=== PATIENT | male | born 1945 ===

== ENCOUNTER 2018-01-24 08:31 | Inpatient (IN) | payer MEDICARE ==
[2018-01-24 09:41] LABS: ALT (SGPT) 14 U/L (8-55); AST (SGOT) 43 U/L (5-34); Albumin 2.7 g/dL (3.4-4.8); Alkaline Phosphatase 79 U/L (40-150); Anion Gap 11 mmol/L (10-20); BUN (Urea Nitrogen) 27 mg/dL (8.4-25.7); Bilirubin, Total 2.2 mg/dL (0.2-1.2); Calc. Creatinine Clearance 0 mL/min (70-130); Calcium 8.8 mg/dL (7.8-10.44); Carbon Dioxide 23 mmol/L (23-31); Chloride 110 mmol/L (98-107); Estimated GFR-MDRD 36; Globulin 4.6 g/dL (2.4-3.5); Glucose 146 mg/dL (80-115); Lipase 26 U/L (8-78); Potassium 4.5 mmol/L (3.5-5.1); Protein, Total 7.3 g/dL (5.8-8.1); Sodium 139 mmol/L (136-145)
[2018-01-24 09:52] LABS: Troponin I 0.022 ng/mL (< 0.028)
[2018-01-24 10:21] LABS: #Eosinphils 0.1 thou/uL (0.0-0.7); #Lymphocytes 1.2 thou/uL (1.20-3.40); #Monocytes 0.4 thou/uL (0.11-0.59); #Neutrophils 9.6 thou/uL (1.40-6.50); %Basophils 0.3 % (0.0-1.0); %Eosinophils 0.5 % (0.0-10.0); %Lymphocytes 10.5 % (21.0-51.0); %Monocytes 3.9 % (0.0-10.0); %Neutrophils 84.9 % (42.0-75.0); Hemoglobin 10.4 g/dL (14.0-18.0); Mean Corpuscular HGB CONC 33.3 g/dL (32.0-36.0); Mean Corpuscular Hemoglobin 29.2 pg (27.0-31.0); Mean Corpuscular Volume 87.8 fl (80.0-94.0); Mean Platelet Volume 8.7 fL (7.4-10.4); PLT Morphology Comment Appears Decreased; Platelet Count 108 thou/uL (130-400); RBC Distribution Width 13.3 % (11.5-14.5); Red Blood Cell (RBC) Count 3.55 mill/uL (4.70-6.10); White Blood Cell (WBC) Count 11.3 thou/uL (4.8-10.8)
[2018-01-24 10:26] LABS: INR-International Normal Ratio 1.6; PTT 33.1 SEC (22.9-36.1); Prothrombin Time 19.3 SEC (12.0-14.7)
--- NOTE | 2018-01-24 10:56 | RAD ---
PORTABLE CHEST ONE VIEW: History: 72-year-old male with history of altered mental status and weakness. FINDINGS: Minimal pleural thickening and some minimal pleural based parenchymal changes in the right costophren ic angle and right lower lobe, nonspecific. No significant confluent pneumonia. Heart size is within normal limits. The left chest is clear. IMPRESSION: Nonspecific minimal pleural thickening and right costophrenic angle blunting and very minimal pleural based parenchymal changes, this could represent a small patch of pneumonitis or possibly could be po st-traumatic or may represent some old chronic change. No old studies available for comparison. Corre late clinically and consider follow up with upright PA and lateral chest whenever the patient can und ergo that study. POS: [facility]
[2018-01-24] MEDS ORDERED: Labetalol HCl 100 MG/20 ML VIAL ONE (11:19)
--- NOTE | 2018-01-24 11:43 | CT ---
CT HEAD WITHOUT CONTRAST: 01/24/2018 HISTORY: Altered mental status. COMPARISON: None. TECHNIQUE: Serial axial CT imaging at 5 mm intervals, from the vertex through the skull base, without contrast. FINDINGS: The imaged paranasal sinuses/mastoid air cells are well aerated. There is no displaced calvarial fra cture. There is no intracranial hemorrhage, midline shift, or mass effect. This study is slightly l imited by motion artifact. There is mild diffuse cerebral volume loss. IMPRESSION: No intracranial hemorrhage or displaced calvarial fracture. POS: [facility]
[2018-01-24 13:01] LABS: Bilirubin Negative (Negative); Blood, Urine Moderate (Negative); Clarity CLOUDY (Clear); Glucose, Urine (Dipstick) Negative (Negative); Leukocyte Negative (Negative); Nitrite Negative (Negative); Protein, Urine (Dipstick) 30 mg/dL (Neg-Trace); Specific Gravity, Urine 1.019 (1.002-1.036); Urobilinogen 0.2 mg/dL (0.2-1.0); pH, Urine 5.5 (5.0-9.0)
[2018-01-24 13:03] LABS: Bacteria/HPF None Seen HPF (None Seen); Hyaline Casts/LPF 0-3 HYALINE CAST LPF (0-3 Hyaline); Pathc Cast-AUWi Flag 0.29 (0-2.49); Squamous Epithelial None Seen HPF (0-3); WBC/HPF None Seen HPF (0-3)
[2018-01-24 15:31] LABS: Lactic Acid 3.2 mmol/L (0.5-2.2)
--- NOTE | 2018-01-24 15:34 | PDOC.FPRHP ---
- History of Present Illness Chief Complaint: altered mental status History of Present Illness: Time: 3:15pm All history obtained from girlfriend- Caroline Acevedo ([phone]). Patient is a 72yo CM with PMHx of Liver cirrhosis 2/2 Hep C and Alcohol Abuse who was brought to the ED by his friend due to AMS. Per girlfriend, patient decided he wanted to take a big trip to [place] to visit his friend down here. He left last and is visiting for about 3wks. She states that he didn't take his lactulose last or Monday because he was traveling and that he doesn't like taking the medicine. Not sure if he has been compliant with his medications, but that his friend told her he might not have taken them last night. She says he has these encephalopathic episodes about 1x/3mo and it's usually because he doesn't take his lactulose or he takes some other medication. For example, he took alleve for 2 days last time and it threw him into one of these episodes where he had elevated ammonia levels. Says that it has been >1yr since last hospitalization for encephalopathy but that it's because she can normally catch his altered mentation quickly and helps him take his medicine. Diagnosed with cirrhosis about 6yrs ago and is closely followed by a Roll Repairer in [place], [place]. Had recent CT done within the last 6mo and was normal. Carlton Alva (son): [phone] Alex Alva (son): [phone] ED Course: In the ED given: 1. labetolol 10mg IV 2. 1L bolus NS - Allergies/Adverse Reactions Allergies Allergy/AdvReac Type Severity Reaction Status Date / Time Penicillins Allergy Verified 01/24/18 15:58 - Home Medications Medication Instructions Recorded Confirmed Type Atorvastatin Calcium [Lipitor] 20 mg PO DAILY 01/24/18 01/24/18 History Carvedilol [Coreg] 3.125 mg PO BID 01/24/18 01/24/18 History Clopidogrel Bisulfate [Plavix] 75 mg PO DAILY 01/24/18 01/24/18 History Eplerenone [Inspra] 25 mg PO BID 01/24/18 01/24/18 History Furosemide [Lasix] 40 mg PO BID 01/24/18 01/24/18 History Isosorbide Mononitrate [Imdur ER] 30 mg PO DAILY 01/24/18 01/24/18 History Lactulose 10 GM/15ML Oral Drea 20 gm PO TID 01/24/18 01/24/18 History [Lactulose] Levothyroxine Sodium [Synthroid] 125 mcg PO DAILY 01/24/18 01/24/18 History Pantoprazole [Protonix] 40 mg PO DAILY 01/24/18 01/24/18 History Rifaximin [Xifaxan] 550 mg PO BID 01/24/18 01/24/18 History traZODone HCl [Trazodone HCl] 150 mg PO HS 01/24/18 01/24/18 History - History PMHx: All history obtained from girlfriend- Caroline Acevedo. 1. Cirrhosis 2/2 Hep C & Alcohol Abuse 2. Chronic Hepatitis C 3. Hx of Alcohol Abuse 4. CAD 5. HTN 6. Hypothyroidism 7. Hx of polysubstance abuse 8. Arthritis of neck PSHx: 1. cholecystectomy 2. ankle surgery 3. RT orchiectomy FHx: 1. Mother: heart dz Social: 1. Tobacco: 1pk/day for 45yrs and 4-5 cig/day 2. Alcohol: previous alcohol abuse but stopped drinking 6yrs ago when dx with cirrhosis 3. Drugs: hx of polysubstance abuse - Review of Systems ROS unobtainable: due to mental status (not able to obtain due to AMS) - Vital signs BP: 229/104 HR: 90 RR: 21 Tmax: 98.4 Pox: 97% on RA Wt: 80kg - Physical Exam Constitutional: NAD, awake, alert and oriented (oriented to self only (not at baseline)) HEENT: normocephalic and atraumatic, PERRLA Heart: RRR (2/6 CHRISS), normal S1/S2 Lungs: CTAB, no respiratory distress Abdomen: soft, non-tender, other (slightly distended but did not appreciate significant ascites or fluid wave) Musculoskeletal: ROM grossly normal Skin: no rash/lesions, good turgor, other (RT femoral line) FMR H&P: Results - Labs Result Diagrams: 01/25/18 03:50 01/25/18 03:50 Lab results: WBC 11.3 thou/uL (4.8-10.8) H 01/24/18 10:09 Hgb 10.4 g/dL (14.0-18.0) L 01/24/18 10:09 Hct 31.2 % (42.0-52.0) L 01/24/18 10:09 MCV 87.8 fl (80.0-94.0) 01/24/18 10:09 Plt Count 108 thou/uL (130-400) L 01/24/18 10:09 Neutrophils % 84.9 % (42.0-75.0) H 01/24/18 10:09 Sodium 139 mmol/L (136-145) 01/24/18 09:15 Potassium 4.5 mmol/L (3.5-5.1) 01/24/18 09:15 Chloride 110 mmol/L (98-107) H 01/24/18 09:15 Carbon Dioxide 23 mmol/L (23-31) 01/24/18 09:15 BUN 27 mg/dL (8.4-25.7) H 01/24/18 09:15 Creatinine 1.86 mg/dL (0.6-1.3) H 01/24/18 09:15 Glucose 146 mg/dL (80-115) H 01/24/18 09:15 Lactic Acid 3.2 mmol/L (0.5-2.2) H 01/24/18 15:05 Calcium 8.8 mg/dL (7.8-10.44) 01/24/18 09:15 Total Bilirubin 2.2 mg/dL (0.2-1.2) H 01/24/18 09:15 AST 43 U/L (5-34) H 01/24/18 09:15 ALT 14 U/L (8-55) 01/24/18 09:15 Alkaline Phosphatase 79 U/L (40-150) 01/24/18 09:15 Ammonia 79 umol/L (18-72) H 01/24/18 09:15 CK-MB (CK-2) 7.0 ng/mL (0-6.6) H* 01/24/18 09:28 Serum Total Protein 7.3 g/dL (5.8-8.1) 01/24/18 09:15 Albumin 2.7 g/dL (3.4-4.8) L 01/24/18 09:15 Lipase 26 U/L (8-78) 01/24/18 09:15 Urine Ketones Negative mg/dL (Negative) 01/24/18 12:45 Urine Blood Moderate (Negative) H 01/24/18 12:45 Urine Nitrite Negative (Negative) 01/24/18 12:45 Ur Leukocyte Esterase Negative (Negative) 01/24/18 12:45 Urine RBC 7-10 HPF (0-3) H 01/24/18 12:45 Urine WBC None Seen HPF (0-3) 01/24/18 12:45 Ur Squamous Epith Cells None Seen HPF (0-3) 01/24/18 12:45 Urine Bacteria None Seen HPF (None Seen) 01/24/18 12:45 Laboratory Tests 01/24/18 01/24/18 01/24/18 09:15 09:28 09:28 PT INR APTT Ammonia 79 H CK-MB (CK-2) 7.0 H* Troponin I 0.022 TSH 3rd Generation 4.5417 FMR H&P: A/P - Problem List (1) Acute hepatic encephalopathy Current Visit: Yes Status: Acute Code(s): K72.00 - ACUTE AND SUBACUTE HEPATIC FAILURE WITHOUT COMA (2) Liver disease, chronic, with cirrhosis Current Visit: Yes Status: Acute Code(s): K74.60 - UNSPECIFIED CIRRHOSIS OF LIVER; K76.9 - LIVER DISEASE, UNSPECIFIED (3) Hepatitis C Current Visit: Yes Status: Acute Code(s): B19.20 - UNSPECIFIED VIRAL HEPATITIS C WITHOUT HEPATIC COMA (4) Alcohol abuse Current Visit: Yes Status: Acute Code(s): F10.10 - ALCOHOL ABUSE, UNCOMPLICATED (5) Coronary artery disease Current Visit: Yes Status: Acute Code(s): I25.10 - ATHSCL HEART DISEASE OF [place] CORONARY ARTERY W/O ANG PCTRS (6) Hypothyroidism Current Visit: Yes Status: Acute Code(s): E03.9 - HYPOTHYROIDISM, UNSPECIFIED (7) Hypertension Current Visit: Yes Status: Acute Code(s): I10 - ESSENTIAL (PRIMARY) HYPERTENSION (8) Hypertensive urgency Current Visit: Yes Status: Acute Code(s): I16.0 - HYPERTENSIVE URGENCY (9) Elevated lactic acid level Current Visit: Yes Status: Acute Code(s): R79.89 - OTHER SPECIFIED ABNORMAL FINDINGS OF BLOOD CHEMISTRY (10) BOO (acute kidney injury) Current Visit: Yes Status: Acute Code(s): N17.9 - ACUTE KIDNEY FAILURE, UNSPECIFIED - Plan 1. Acute Hepatic Encephalopathy: Patient with hx of liver cirrhosis 2/2 Hep C and Alcohol abuse. OOT visiting friend here in [place] and has hx of recurrent encephalopathic episodes. Ammonia level elevated at 79. Spoke with girlfriend who cares for him back in [place] who says he did not take his lactulose last week while he was traveling and that she wouldn't be surprised if he hasn't been taking it for the past few days. He is not very compliant with the medicine as it gives him diarrhea. In addition, states that he might have taken a medicine that would precipitate this event as it has happened before when he took alleve for 2 days. He also has a hx of polysubstance abuse. Check UDS/SDS. Do not suspect SBP at this time as he is afebrile, only slightly leukocytosis at 11.3 and no severe abd pain. Cont home meds including lactulose, lasix and inspra. 2. Possible SBO: KUB done showing possible SBO. Patient currently without any N/ V. Not able to obtain CT for further evaluation due to BOO. Will do serial abdominal exams for now and consider NGT if symptoms worsen. Rehydrate and if Cr improving consider CT. Will also give fleet enema. 3. BOO vs. CKD: Cr elevated at 1.86 but as pt is OOT no known baseline. Girlfriend reports that he might have CKD but not sure. Obtain FeNa. Cont IVF. 4. Elevate lactate: Initial lactate elevated at 3.1 with repeat increased to 3.2. However, patient had not received any IVF at that time as it was difficult to obtain access. Currently getting 1L bolus of NS and will cont IVF. Repeat lactate q2H. 5. Hypertensive urgency: BPs significantly elevated. Given labetolol 10mg IV in the ED with improvement. Cont home meds and monitor. 6. Cirrhosis 2/2 Hep C and Alcohol Abuse: followed closely by gastroenterology in [place]. Had to have multiple paracentesis done in november 2017 due to significant ascites and had about 8L drained. Currently do not appreciate any significant fluid. Monitor. Cont home meds. 7. Thrombocytopenia: 2/2 #6. Monitor 8. Hyperbilirubinemia: 2/2 #6. 9. Hypoalbuminemia: 2/2#6. 10. hx of polysubstance abuse: obtain SDS/UDS. 11. Hypothyroidism: TSH wnl. Cont home synthroid. 12. Diet: NPO with meds 13. PPx: SCDs & protonix. 14. Code Status: DNR (spoke with Carlton Alva who is son and POA) Attending Addendum - Attending Addendum Date/Time: 01/24/181807 I personally evaluated the patient and discussed the management with Dr. Easton I agree with the History, Examination, Assessment and Plan documented above with any addition or exceptions noted below. 72 yo male admitted for hepatic encephalopathy 2/2 missed medications and drug use. Admit. Schedule lactulose. Consider adding Rifaximin. Needs enema vs fecal disimpaction. GI consult as needed. CT head negative. Renal studies but BOO vs CKD likely prerenal. Give gentle IVFs. Monitor for overload. Trend cardiac enzymes. Consult cards as needed. HTN urgency to be treated with IV antihypertensives. Likely related to recent drug use. Nicole
--- NOTE | 2018-01-24 15:53 | RAD ---
ONE VIEW ABDOMEN: 01/24/18 HISTORY: Femoral catheter placement. COMPARISON: None. FINDINGS: There is a catheter projecting over the right hemipelvis which may be within the venous system. This catheter projects over the right hemipelvis and is presumed to be in the venous system given that it appears to be the right of the spine. Nevertheless, confirmation with arterial blood gas if clinicall y warranted. Correlate clinically. There are multiple air filled loops of small bowel in the left hem iabdomen, worrisome for a partial obstructive process. There is air and fecal material in visualized colon. IMPRESSION: 1. Possible partial small bowel obstruction. 2. Further evaluation with CT is recommended. 3. Right sided catheter as above. Correlate clinically to confirm venous access. POS: [facility]
[2018-01-24] MEDS ORDERED: Ondansetron HCl/PF 4 MG/2 ML Vial IVP PRN (19:41)
[2018-01-24] MEDS ORDERED: Fleet Enema 133 ML BOT PR SCH (19:41)
[2018-01-24] MEDS ORDERED: Sodium Chloride 0.9% 1,000 ML IV SCH (19:41)
[2018-01-24 20:21] LABS: Acetaminophen Less than 6.0 mcg/mL (10.0-30.0); Alcohol Less than 10 mg/dL (Less than 10); Salicylate Less than 8.0 mg/dL (15.0-30.0)
[2018-01-24 20:26] LABS: Troponin I 0.038 ng/mL (< 0.028)
[2018-01-24 20:58] LABS: Amphetamine Detected (NotDetected); Barbiturates Screen Not Detected (NotDetected); Benzodiazepine Screen Not Detected (NotDetected); Cocaine Metabolite Screen Not Detected (NotDetected); Medtox Control Line Valid? VALID (VALID); Medtox Reader # READER 4; Methadone Not Detected (NotDetected); Methamphetamine Detected (NotDetected); Opiate Screen Not Detected (NotDetected); Oxycodone Screen Not Detected (NotDetected); Phencyclidine (PCP) Not Detected (NotDetected); THC/Cannabinoid Screen Not Detected (NotDetected); Tricyclic Screen Not Detected (NotDetected)
[2018-01-24] MEDS ORDERED: Furosemide 40 MG TAB PO SCH (22:00)
[2018-01-24 22:26] LABS: Anion Gap 13 mmol/L (10-20); BUN (Urea Nitrogen) 27 mg/dL (8.4-25.7); Calc. Creatinine Clearance 49 mL/min (70-130); Calcium 8.1 mg/dL (7.8-10.44); Carbon Dioxide 19 mmol/L (23-31); Chloride 116 mmol/L (98-107); Estimated GFR-MDRD 42; Glucose 111 mg/dL (80-115); Potassium 4.1 mmol/L (3.5-5.1); Sodium 144 mmol/L (136-145)
[2018-01-24 23:08] LABS: Creatinine, Urine 139.35 mg/dL (63-166)
[2018-01-24 23:59] LABS: Lactic Acid 1.8 mmol/L (0.5-2.2)
[2018-01-25 00:16] LABS: Troponin I 0.054 ng/mL (< 0.028)
[2018-01-25 00:24] LABS: CKMB 8.1 ng/mL (0-6.6)
[2018-01-25] MEDS ORDERED: Aspirin 325 MG TAB ONE (00:37)
[2018-01-25 04:13] LABS: #Eosinphils 0.5 thou/uL (0.0-0.7); #Monocytes 0.9 thou/uL (0.11-0.59); #Neutrophils 5.8 thou/uL (1.40-6.50); %Basophils 0.4 % (0.0-1.0); %Eosinophils 5.7 % (0.0-10.0); %Lymphocytes 21.9 % (21.0-51.0); %Monocytes 9.3 % (0.0-10.0); %Neutrophils 62.7 % (42.0-75.0); Hemoglobin 8.4 g/dL (14.0-18.0); Mean Corpuscular HGB CONC 34.1 g/dL (32.0-36.0); Mean Corpuscular Hemoglobin 29.7 pg (27.0-31.0); Mean Platelet Volume 8.4 fL (7.4-10.4); Platelet Count 89 thou/uL (130-400); RBC Distribution Width 13.3 % (11.5-14.5); Red Blood Cell (RBC) Count 2.82 mill/uL (4.70-6.10); White Blood Cell (WBC) Count 9.3 thou/uL (4.8-10.8)
[2018-01-25 04:22] LABS: Anion Gap 9 mmol/L (10-20); BUN (Urea Nitrogen) 29 mg/dL (8.4-25.7); Calc. Creatinine Clearance 48 mL/min (70-130); Calcium 8.1 mg/dL (7.8-10.44); Carbon Dioxide 23 mmol/L (23-31); Chloride 117 mmol/L (98-107); Estimated GFR-MDRD 41; Glucose 94 mg/dL (80-115); Potassium 3.8 mmol/L (3.5-5.1); Sodium 145 mmol/L (136-145)
[2018-01-25 04:28] LABS: CKMB 6.3 ng/mL (0-6.6); Troponin I 0.052 ng/mL (< 0.028)
[2018-01-25] MEDS: Levothyroxine Sodium 125 MCG TAB PO SCH (05:35)
[2018-01-25] MEDS ORDERED: Furosemide 40 MG TAB PO SCH ×2 (06:00→07:30)
--- NOTE | 2018-01-25 06:33 | PDOC.FM ---
- Subjective Subjective: Patient refused fleets enema last night and did not take all of his lactulose. Nurse reports continued confusion but no agitation overnight. No BM while in the hospital. Denies pain at this time. - Objective MAR Reviewed: Yes Vital Signs & Weight: Vital Signs (12 hours) Temp Pulse Resp BP Pulse Ox 01/25/18 04:00 98.2 F 74 18 175/67 H 92 L 01/25/18 01:26 179/77 H 01/25/18 01:22 97.8 F 84 20 200/87 H 97 01/24/18 20:00 97.8 F 84 20 96 I&O: 01/23/18 01/24/18 01/25/18 06:59 06:59 06:59 Output Total 1450 Balance -1450 Result Diagrams: 01/25/18 03:50 01/25/18 03:50 Phys Exam - Physical Examination Constitutional: NAD Confused HEENT: PERRLA, moist MMs, oral pharynx no lesions Neck: no JVD Respiratory: no wheezing, no rales, clear to auscultation bilateral Cardiovascular: RRR, no significant murmur Gastrointestinal: soft, positive bowel sounds tenderness to palpation in LUQ and RUQ, palpable liver edge 5-6cm below rib line, ascites present with mild-moderate distension of abdomen Musculoskeletal: no edema Neurological: moves all 4 limbs Deviation from normal: AOx1 Deviation from normal: spider angiomata on chest Dx/Plan (1) Acute hepatic encephalopathy Code(s): K72.00 - ACUTE AND SUBACUTE HEPATIC FAILURE WITHOUT COMA Status: Acute (2) Liver disease, chronic, with cirrhosis Code(s): K74.60 - UNSPECIFIED CIRRHOSIS OF LIVER; K76.9 - LIVER DISEASE, UNSPECIFIED Status: Acute (3) Elevated lactic acid level Code(s): R79.89 - OTHER SPECIFIED ABNORMAL FINDINGS OF BLOOD CHEMISTRY Status : Acute (4) Hypertensive urgency Code(s): I16.0 - HYPERTENSIVE URGENCY Status: Acute (5) BOO (acute kidney injury) Code(s): N17.9 - ACUTE KIDNEY FAILURE, UNSPECIFIED Status: Acute (6) Alcohol abuse Code(s): F10.10 - ALCOHOL ABUSE, UNCOMPLICATED Status: Acute (7) Coronary artery disease Code(s): I25.10 - ATHSCL HEART DISEASE OF [place] CORONARY ARTERY W/O ANG PCTRS Status: Acute (8) Hepatitis C Code(s): B19.20 - UNSPECIFIED VIRAL HEPATITIS C WITHOUT HEPATIC COMA Status: Acute (9) Hypertension Code(s): I10 - ESSENTIAL (PRIMARY) HYPERTENSION Status: Acute (10) Hypothyroidism Code(s): E03.9 - HYPOTHYROIDISM, UNSPECIFIED Status: Acute - Plan Plan: Acute Hepatic Encephalopathy - Patient with hx of liver cirrhosis 2/2 Hep C and Alcohol abuse. OOT visiting friend here in [place] and has hx of recurrent encephalopathic episodes. - Ammonia level elevated at 79, patient refused enema and spit out half of lactulose per nurse, recheck ammonia this morning. S - has a hx of polysubstance abuse. UDS + for methamphetamines - Do not suspect SBP, leukocytosis initially at 11.3, resolved today - Watched as nurse was able to successfuly give Lactulose this morning. Lactulose TID. Possible SBO: - KUB done showing possible SBO. Patient currently without any N/V. Not able to obtain CT for further evaluation due to BOO. - Abdomen is tender on exam today, consider NGT - continue rehydration with IVF and if Cr improving consider CT. - patient refused fleet enema, Will try again this am. BOO vs. CKD: - Cr. continues to be elevated at 1.67 - FeNa 0.3% suggesting prerenal cause - fluids slowed down overnight due to concern for developing fluid overload. No s/sx right now. Will increase IVF Elevate lactate - Resolved with hydration. Hypertensive urgency - BPs significantly elevated. Given labetolol 10mg IV in the ED with improvement. - Cont home meds and monitor. Cirrhosis 2/2 Hep C and Alcohol Abuse - followed closely by gastroenterology in [place]. Had to have multiple paracentesis done in november 2017 due to significant ascites and had about 8L drained. - Appreciable mild ascites this morning. Continue to monitor. If worsening, consider paracentesis. Thrombocytopenia - 2/2 Cirrhosis Hyperbilirubinemia - 2/2 Cirrhosis Hypoalbuminemia - 2/2 Cirrhosis Methamphetamine use - addiction counselor on cessation Hypothyroidism - TSH wnl. Cont home synthroid.
[2018-01-25 07:59] LABS: CKMB 5.3 ng/mL (0-6.6); Troponin I 0.046 ng/mL (< 0.028)
[2018-01-25] MEDS ORDERED: Carvedilol 3.125 MG TAB PO SCH ×4 (08:15→18:17)
[2018-01-25] MEDS: Atorvastatin Calcium 20 MG TAB PO SCH (08:39)
[2018-01-25] MEDS: Aspirin 325 MG TAB PO SCH (08:39)
[2018-01-25] MEDS: Rifaximin 550 MG TAB PO SCH ×2 (08:39→21:50)
[2018-01-25] MEDS ORDERED: FLU VACC TS2017-18 (>65YR) 0.5 ML SYRINGE IM ONE (09:00)
[2018-01-25] MEDS ORDERED: Furosemide 40 MG/4 ML VIAL SLOW IVP SCH (09:00)
[2018-01-25] MEDS ORDERED: Pantoprazole 40 MG VIAL IVP SCH (09:00)
[2018-01-25] MEDS ORDERED: Clopidogrel Bisulfate 75 MG TAB PO SCH (09:00)
[2018-01-25] MEDS ORDERED: Prevnar 13-Val Conj/PF 0.5 ML SYRINGE IM ONE (09:00)
[2018-01-25] MEDS ORDERED: Fleet Enema 133 ML BOT PR SCH (09:30)
[2018-01-25] MEDS ORDERED: Labetalol HCl 100 MG/20 ML VIAL SLOW IVP PRN (11:48)
--- NOTE | 2018-01-25 13:57 | ADD-PRG ---
DATE OF SERVICE: 01/25/2018 This is an addendum to the note of Dr. Janice Kessler. Mr. Alva is a 72-year-old white male patient with a history of cirrhosis secondary to alcohol abuse and hepatitis C. He allegedly had not been taking his lactulose and came in quite confused with symp toms consistent with hepatic encephalopathy. He also has a degree of abdominal distention likely rel ated to ascites and a possible ileus. We will attempt a Fleet enema and disimpaction of the stool. We may need to consider a noncontrast abdominal CT as the plain film showed the possibility of small- bowel obstruction. We also need to keep in mind the possibility of SBP. Currently, he is afebrile w ith a normal white count. We have reinstituted therapy with the lactulose and will proceed with furt her bowel cleansing.
[2018-01-25] MEDS: hydrALAZINE 20 MG/ML VIAL SLOW IVP PRN (21:50)
[2018-01-26 05:20] LABS: #Eosinphils 0.1 thou/uL (0.0-0.7); #Lymphocytes 1.3 thou/uL (1.20-3.40); #Monocytes 0.7 thou/uL (0.11-0.59); #Neutrophils 6.6 thou/uL (1.40-6.50); %Basophils 0.1 % (0.0-1.0); %Eosinophils 0.6 % (0.0-10.0); %Lymphocytes 15.4 % (21.0-51.0); %Monocytes 7.6 % (0.0-10.0); %Neutrophils 76.3 % (42.0-75.0); Hemoglobin 9.2 g/dL (14.0-18.0); Mean Corpuscular HGB CONC 33.9 g/dL (32.0-36.0); Mean Corpuscular Hemoglobin 29.8 pg (27.0-31.0); Mean Platelet Volume 8.7 fL (7.4-10.4); Platelet Count 88 thou/uL (130-400); RBC Distribution Width 13.7 % (11.5-14.5); Red Blood Cell (RBC) Count 3.09 mill/uL (4.70-6.10); White Blood Cell (WBC) Count 8.6 thou/uL (4.8-10.8)
[2018-01-26 05:25] LABS: INR-International Normal Ratio 1.7; PTT 32.7 SEC (22.9-36.1)
[2018-01-26] MEDS: Levothyroxine Sodium 125 MCG TAB PO SCH (05:31)
[2018-01-26 05:35] LABS: ALT (SGPT) 10 U/L (8-55); AST (SGOT) 32 U/L (5-34); Albumin 2.4 g/dL (3.4-4.8); Alkaline Phosphatase 67 U/L (40-150); Anion Gap 11 mmol/L (10-20); BUN (Urea Nitrogen) 37 mg/dL (8.4-25.7); Bilirubin, Total 1.5 mg/dL (0.2-1.2); Calc. Creatinine Clearance 41 mL/min (70-130); Calcium 8.7 mg/dL (7.8-10.44); Carbon Dioxide 22 mmol/L (23-31); Chloride 121 mmol/L (98-107); Estimated GFR-MDRD 34; Globulin 4.1 g/dL (2.4-3.5); Glucose 146 mg/dL (83-110); Potassium 3.5 mmol/L (3.5-5.1); Protein, Total 6.5 g/dL (5.8-8.1); Sodium 150 mmol/L (136-145)
[2018-01-26] MEDS ORDERED: Carvedilol 3.125 MG TAB PO SCH (06:00)
[2018-01-26] MEDS ORDERED: Sodium Chloride 0.9% 1,000 ML IV SCH (07:45)
[2018-01-26] MEDS: Carvedilol 3.125 MG TAB PO SCH ×2 (08:17→16:20)
[2018-01-26] MEDS: Atorvastatin Calcium 20 MG TAB PO SCH (08:17)
[2018-01-26] MEDS: Aspirin 325 MG TAB PO SCH (08:17)
[2018-01-26] MEDS: Rifaximin 550 MG TAB PO SCH ×2 (08:17→20:22)
--- NOTE | 2018-01-26 09:01 | PDOC.FM ---
- Subjective Subjective: Patient is reporting abdominal pain and nausea this morning. Nurse states he did not have complaints overnight. He did have 9 BM's over the last 24hrs. Continues to be confused. - Objective MAR Reviewed: Yes Vital Signs & Weight: Vital Signs (12 hours) Temp Pulse Resp BP BP Pulse Ox 01/26/18 08:31 98.4 F 81 18 160/70 H 97 01/26/18 04:00 98.1 F 75 18 181/68 H 97 01/26/18 00:00 98 F 69 20 146/55 H 98 01/25/18 21:50 69 185/79 H Weight Admit Weight 82.01 kg Weight 82.01 kg I&O: 01/25/18 01/26/18 01/27/18 06:59 06:59 06:59 Intake Total 380 Output Total 1750 800 Balance -1750 -420 Result Diagrams: 01/26/18 04:29 01/26/18 04:29 Phys Exam - Physical Examination Constitutional: NAD HEENT: PERRLA dry MM Neck: supple Respiratory: no wheezing, no rales, clear to auscultation bilateral Cardiovascular: RRR, no significant murmur Gastrointestinal: positive bowel sounds soft with increased distension, significant guarding and ttp throughout Musculoskeletal: no edema, pulses present Neurological: moves all 4 limbs Deviation from normal: AOx2 Deviation from normal: cap refill > 2 sec. Dx/Plan (1) Acute hepatic encephalopathy Code(s): K72.00 - ACUTE AND SUBACUTE HEPATIC FAILURE WITHOUT COMA Status: Acute (2) Liver disease, chronic, with cirrhosis Code(s): K74.60 - UNSPECIFIED CIRRHOSIS OF LIVER; K76.9 - LIVER DISEASE, UNSPECIFIED Status: Acute (3) Elevated lactic acid level Code(s): R79.89 - OTHER SPECIFIED ABNORMAL FINDINGS OF BLOOD CHEMISTRY Status : Acute (4) Hypertensive urgency Code(s): I16.0 - HYPERTENSIVE URGENCY Status: Acute (5) BOO (acute kidney injury) Code(s): N17.9 - ACUTE KIDNEY FAILURE, UNSPECIFIED Status: Acute (6) Alcohol abuse Code(s): F10.10 - ALCOHOL ABUSE, UNCOMPLICATED Status: Acute (7) Coronary artery disease Code(s): I25.10 - ATHSCL HEART DISEASE OF [place] CORONARY ARTERY W/O ANG PCTRS Status: Acute (8) Hepatitis C Code(s): B19.20 - UNSPECIFIED VIRAL HEPATITIS C WITHOUT HEPATIC COMA Status: Acute (9) Hypertension Code(s): I10 - ESSENTIAL (PRIMARY) HYPERTENSION Status: Acute (10) Hypothyroidism Code(s): E03.9 - HYPOTHYROIDISM, UNSPECIFIED Status: Acute (11) Hyperchloremia Code(s): E87.8 - OTH DISORDERS OF ELECTROLYTE AND FLUID BALANCE, NEC Status: Acute (12) Hypernatremia Code(s): E87.0 - HYPEROSMOLALITY AND HYPERNATREMIA Status: Acute - Plan Plan: Acute Hepatic Encephalopathy - Patient with hx of liver cirrhosis 2/2 Hep C and Alcohol abuse. OOT visiting friend here in [place] and has hx of recurrent encephalopathic episodes. Improved today AOx2 compared to AOx1 yesterday. 9 BM's over the last 24hrs. - Continue Lactulose TID - Ammonia 79, 84, 52 today - has a hx of polysubstance abuse. UDS + for methamphetamines - Concern for SBP despite normal WBC and afebrile. Patient is guarding with complaints of severe abdominal pain. Plan to perform bedside ultrasound and paracentesis today and send for culture. BOO: - Cr. 1.67, 1.9 today - FeNa 0.3% suggesting prerenal cause, likely dehydration - fluids slowed discontinued initially due to concern for developing fluid overload. Start IVF, NS @ 120 due to worsening BOO Hypernatremia - most likely due to hypovolemia - start NS at 120ml/hr Hyperchloremia - likely 2/2 dehydration - IVF and recheck tomorrow Elevate lactate - Resolved with hydration. HTN: - initially presented in hypertensive urgency - has received multiple doses of Labetalol and Hydralazine for pressures > 180 systolic - increased Coreg to 6.25mg BID and monitor Cirrhosis 2/2 Hep C and Alcohol Abuse - followed closely by gastroenterology in [place]. Had to have multiple paracentesis done in november 2017 due to significant ascites and had about 8L drained. - Appreciable mild ascites this morning. Continue to monitor with IVF. Paracentesis today due to concern for SBP. Thrombocytopenia - 2/2 Cirrhosis Hyperbilirubinemia - 2/2 Cirrhosis Hypoalbuminemia - 2/2 Cirrhosis Methamphetamine use - professor of counseling on cessation Hypothyroidism - TSH wnl. Cont home synthroid. Possible SBO, ruled out: - KUB done showing possible SBO. Patient with BMx9 over the last 24hrs. - Abdomen is tender on exam today, consider NGT
[2018-01-26] MEDS: hydrALAZINE 20 MG/ML VIAL SLOW IVP PRN (10:06)
[2018-01-26] MEDS ORDERED: MD-Gastroview 120 ML BOT ONE (11:42)
--- NOTE | 2018-01-26 12:12 | ADD-PRG ---
ADDENDUM DATE OF SERVICE: 01/26/2018 This morning I examine Mr. Alva and his abdomen seems more distended than yesterday. We will procee d with a Gastrografin small bowel series to completely rule out small-bowel obstruction. He is not n auseated. He is having some abdominal pain, but his appetite is good and he is afebrile. His white count is normal.
[2018-01-26] MEDS: Sodium Chloride 0.45% 1,000 ML IV SCH ×2 (12:45→18:21)
[2018-01-26] MEDS: Fentanyl 100 MCG/2 ML VIAL SLOW IVP PRN ×3 (12:53→20:23)
[2018-01-26] MEDS ORDERED: Spironolactone 25 MG TAB PO SCH (13:30)
--- NOTE | 2018-01-26 14:26 | RAD ---
GASTROGRAFIN SMALL BOWEL FOLLOW THROUGH: 01/26/2018 HISTORY: Distention. Assess for bowel obstruction. FINDINGS: Supine permanent mold supervisor imaging demonstrates gaseous distention of bowel throughout the abdomen/pelvis, which pr imarily appears to represent colon, although there may be some dilated small bowel in the left abdome n. Post surgical clips are noted in the right upper quadrant. There is a vascular catheter overlyin g the right inguinal region/right aspect of the sacrum. The patient ingested Gastrografin and, 20 minutes following ingestion, there was contrast media withi n the stomach and nondistended loops of small bowel within the upper abdomen. At 45 minutes, there a re opacified, nondistended small bowel loops within the mid abdomen, left lower quadrant, and right l ower quadrant, including the jejunum, the duodenum, and the ileum. Later imaging, performed at 1 eagle r and 15 minutes, demonstrates contrast media extending into the colon. IMPRESSION: Gastrografin small bowel follow through demonstrates contrast media extending to the colon within one hour and 15 minutes. No evidence for dilated small bowel or small bowel obstruction. The gaseous d istention of bowel throughout the abdomen/pelvis is consistent with nonspecific gaseous distention of the colon. POS: [facility]
[2018-01-26] MEDS: Simethicone Chewable 80 MG TAB PO SCH ×2 (18:18→20:22)
[2018-01-26] MEDS: Spironolactone 25 MG TAB PO SCH (20:23)
[2018-01-26] MEDS ORDERED: Fentanyl 100 MCG/2 ML VIAL SLOW IVP PRN (20:27)
[2018-01-27] MEDS: Sodium Chloride 0.45% 1,000 ML IV SCH (01:30)
[2018-01-27] MEDS: Eplerenone [Inspra] 25 MG PO SCH ×2 (01:36→02:57)
[2018-01-27] MEDS: Levothyroxine Sodium 125 MCG TAB PO SCH (05:52)
[2018-01-27] MEDS: Carvedilol 3.125 MG TAB PO SCH ×2 (05:58→17:00)
[2018-01-27 06:35] LABS: INR-International Normal Ratio 1.7; Prothrombin Time 20.5 SEC (12.0-14.7)
[2018-01-27 06:40] LABS: #Eosinphils 0.2 thou/uL (0.0-0.7); #Lymphocytes 2.1 thou/uL (1.20-3.40); #Neutrophils 7.8 thou/uL (1.40-6.50); %Basophils 0.1 % (0.0-1.0); %Eosinophils 2.2 % (0.0-10.0); %Lymphocytes 18.7 % (21.0-51.0); %Monocytes 8.8 % (0.0-10.0); %Neutrophils 70.2 % (42.0-75.0); ALT (SGPT) 11 U/L (8-55); AST (SGOT) 28 U/L (5-34); Albumin 2.2 g/dL (3.4-4.8); Alkaline Phosphatase 76 U/L (40-150); Anion Gap 8 mmol/L (10-20); BUN (Urea Nitrogen) 42 mg/dL (8.4-25.7); Bilirubin, Total 1.1 mg/dL (0.2-1.2); Calc. Creatinine Clearance 39 mL/min (70-130); Calcium 8.7 mg/dL (7.8-10.44); Carbon Dioxide 20 mmol/L (23-31); Estimated GFR-MDRD 33; Globulin 4.1 g/dL (2.4-3.5); Glucose 109 mg/dL (83-110); Hemoglobin 9.2 g/dL (14.0-18.0); Mean Corpuscular HGB CONC 33.8 g/dL (32.0-36.0); Mean Corpuscular Hemoglobin 30.2 pg (27.0-31.0); Mean Corpuscular Volume 89.2 fl (80.0-94.0); Mean Platelet Volume 8.5 fL (7.4-10.4); Platelet Count 100 thou/uL (130-400); Protein, Total 6.3 g/dL (5.8-8.1); RBC Distribution Width 14.2 % (11.5-14.5); Red Blood Cell (RBC) Count 3.05 mill/uL (4.70-6.10); Sodium 156 mmol/L (136-145); White Blood Cell (WBC) Count 11.1 thou/uL (4.8-10.8)
[2018-01-27 06:43] LABS: Chloride 131 mmol/L (98-107)
--- NOTE | 2018-01-27 06:51 | PDOC.FM ---
- Subjective Subjective: Sam Alva is doing well this morning. He did pull on his femoral line last night. Nurses were able to get a midline in this morning. Denies any chest pain, dyspnea, fever, chills. Only complaint is that he is thirsty. Abdomen is still distended. - Objective MAR Reviewed: Yes Vital Signs & Weight: Vital Signs (12 hours) Temp Pulse Resp BP Pulse Ox 01/27/18 04:00 97.6 F 62 18 202/92 H 96 01/26/18 20:00 97.6 F 62 20 157/63 H 96 Weight Admit Weight 82.01 kg Weight 82.01 kg I&O: 01/25/18 01/26/18 01/27/18 06:59 06:59 06:59 Intake Total 380 2670 Output Total 1750 800 550 Balance -1750 -420 2120 Result Diagrams: 01/27/18 05:41 01/27/18 05:41 <Miguel Stone - Last Filed: 01/27/18 10:47> - Objective Vital Signs & Weight: Vital Signs (12 hours) Temp Pulse Resp BP Pulse Ox 01/27/18 16:19 98.2 F 79 18 150/56 H 95 01/27/18 11:28 98.0 F 61 18 155/70 H 98 01/27/18 10:33 98.1 F 61 16 97 Weight Admit Weight 82.01 kg Weight 82.01 kg I&O: 01/26/18 01/27/18 01/28/18 06:59 06:59 06:59 Intake Total 380 2670 1790 Output Total 800 550 150 Balance -420 2120 1640 Result Diagrams: 01/27/18 05:41 01/27/18 14:38 <Maritza Wilhelm - Last Filed: 01/27/18 22:27> Phys Exam - Physical Examination Constitutional: NAD HEENT: moist MMs, sclera anicteric Neck: no JVD, supple, full ROM Respiratory: no wheezing, no rales, no rhonchi, clear to auscultation bilateral Cardiovascular: RRR, no significant murmur, no rub Gastrointestinal: soft, positive bowel sounds soft with increase distention similar to previous exams Musculoskeletal: no edema, pulses present Neurological: non-focal, moves all 4 limbs Psychiatric: normal affect, A&O x 3 <Miguel Stone - Last Filed: 01/27/18 10:47> Dx/Plan (1) BOO (acute kidney injury) Code(s): N17.9 - ACUTE KIDNEY FAILURE, UNSPECIFIED Status: Acute (2) Acute hepatic encephalopathy Code(s): K72.00 - ACUTE AND SUBACUTE HEPATIC FAILURE WITHOUT COMA Status: Acute (3) Elevated lactic acid level Code(s): R79.89 - OTHER SPECIFIED ABNORMAL FINDINGS OF BLOOD CHEMISTRY Status : Acute (4) Hypernatremia Code(s): E87.0 - HYPEROSMOLALITY AND HYPERNATREMIA Status: Acute (5) Hyperchloremia Code(s): E87.8 - OTH DISORDERS OF ELECTROLYTE AND FLUID BALANCE, NEC Status: Acute (6) Hepatitis C Code(s): B19.20 - UNSPECIFIED VIRAL HEPATITIS C WITHOUT HEPATIC COMA Status: Chronic (7) Hypertensive urgency Code(s): I16.0 - HYPERTENSIVE URGENCY Status: Acute (8) Liver disease, chronic, with cirrhosis Code(s): K74.60 - UNSPECIFIED CIRRHOSIS OF LIVER; K76.9 - LIVER DISEASE, UNSPECIFIED Status: Chronic - Plan Plan: Acute Hepatic Encephalopathy - Patient with hx of liver cirrhosis 2/2 Hep C and Alcohol abuse. OOT visiting friend here in [place] and has hx of recurrent encephalopathic episodes. Improved today AOx2 compared to AOx1 yesterday. 9 BM's over the last 24hrs. - Continue Lactulose TID - Ammonia 79 initially, has improved - has a hx of polysubstance abuse. UDS + for methamphetamines - Consulting Nephrology, Dr. Barragan, appreciate recs - Consulting GI, Dr. Maier, appreciate recs BOO: - Cr. 1.67, up to 2.02 today - FeNa 0.3% suggesting prerenal cause, likely dehydration - some concern for hepatorenal syndrome, consulting GI and nephro. - Starting D5W at 125 ml/hr Hypernatremia - starting D5W @ 125 ml/hr - consulting nephro Hyperchloremia - worsened to 131 overnight - likely 2/2 dehydration - IVF and recheck tomorrow Elevate lactate - Resolved with hydration. HTN: - initially presented in hypertensive urgency - has received multiple doses of Labetalol and Hydralazine for pressures > 180 systolic - increased Coreg to 6.25mg BID and monitor Cirrhosis 2/2 Hep C and Alcohol Abuse - followed closely by gastroenterology in [place]. Had to have multiple paracentesis done in november 2017 due to significant ascites and had about 8L drained. - Appreciable mild ascites this morning. Continue to monitor with IVF. Paracentesis today due to concern for SBP. Thrombocytopenia - 2/2 Cirrhosis Hyperbilirubinemia - 2/2 Cirrhosis Hypoalbuminemia - 2/2 Cirrhosis Methamphetamine use - job placement counselor on cessation Hypothyroidism - TSH wnl. Cont home synthroid. Possible SBO, ruled out: - KUB done showing possible SBO. Patient with BMx9 over the last 24hrs. - Abdomen is tender on exam today, consider NGT <Miguel Stone - Last Filed: 01/27/18 10:47> Attending Addendum - Attending Addendum Date/Time: 01/27/186 I personally evaluated the patient and discussed the management with Dr. Stone. I agree with the History, Examination, Assessment and Plan documented above with any addition or exceptions noted below. Patient with multiple electrolyte abnormalities including elevated sodium and chloride. He also has abdominal distention. Pt is orient to person and place. Starting d5W to help with hypernatremia. Trend sodium. Nephrology is being consulted as well as GI. <Maritza Wilhelm - Last Filed: 01/27/18 22:27>
[2018-01-27] MEDS ORDERED: Spironolactone 25 MG TAB PO SCH (08:00)
[2018-01-27] MEDS ORDERED: Potassium Chloride 20 MEQ TAB PO SCH (08:30)
[2018-01-27] MEDS: Rifaximin 550 MG TAB PO SCH ×2 (09:21→20:25)
[2018-01-27] MEDS: Spironolactone 25 MG TAB PO SCH ×2 (09:22→20:25)
[2018-01-27] MEDS: Atorvastatin Calcium 20 MG TAB PO SCH (09:23)
[2018-01-27] MEDS: Aspirin 325 MG TAB PO SCH (09:23)
[2018-01-27] MEDS: hydrALAZINE 20 MG/ML VIAL SLOW IVP PRN (09:25)
[2018-01-27] MEDS: Simethicone Chewable 80 MG TAB PO SCH ×4 (09:30→20:25)
[2018-01-27 11:07] LABS: INR-International Normal Ratio 1.7; Prothrombin Time 20.5 SEC (12.0-14.7)
[2018-01-27] MEDS: Dextrose 5% in Water 1,000 ML IV SCH ×2 (11:14→18:16)
[2018-01-27 11:18] LABS: Anion Gap 9 mmol/L (10-20); BUN (Urea Nitrogen) 42 mg/dL (8.4-25.7); Calc. Creatinine Clearance 40 mL/min (70-130); Calcium 8.7 mg/dL (7.8-10.44); Carbon Dioxide 19 mmol/L (23-31); Estimated GFR-MDRD 34; Glucose 127 mg/dL (83-110); Potassium 3.1 mmol/L (3.5-5.1); Sodium 154 mmol/L (136-145)
[2018-01-27 11:20] LABS: Chloride 129 mmol/L (98-107)
[2018-01-27 12:02] LABS: Anion Gap 7 mmol/L (10-20); BUN (Urea Nitrogen) 42 mg/dL (8.4-25.7); Calc. Creatinine Clearance 40 mL/min (70-130); Calcium 8.7 mg/dL (7.8-10.44); Carbon Dioxide 18 mmol/L (23-31); Estimated GFR-MDRD 34; Glucose 129 mg/dL (83-110); Potassium 3.3 mmol/L (3.5-5.1); Sodium 153 mmol/L (136-145)
[2018-01-27 12:16] LABS: Chloride 131 mmol/L (98-107)
[2018-01-27 12:53] LABS: Anion Gap 7 mmol/L (10-20); BUN (Urea Nitrogen) 43 mg/dL (8.4-25.7); Calc. Creatinine Clearance 37 mL/min (70-130); Calcium 8.4 mg/dL (7.8-10.44); Carbon Dioxide 21 mmol/L (23-31); Estimated GFR-MDRD 31; Glucose 149 mg/dL (83-110); Potassium 3.4 mmol/L (3.5-5.1); Sodium 155 mmol/L (136-145)
[2018-01-27 12:57] LABS: Chloride 130 mmol/L (98-107)
[2018-01-27 15:07] LABS: Anion Gap 8 mmol/L (10-20); BUN (Urea Nitrogen) 43 mg/dL (8.4-25.7); Calc. Creatinine Clearance 36 mL/min (70-130); Calcium 8.7 mg/dL (7.8-10.44); Carbon Dioxide 19 mmol/L (23-31); Estimated GFR-MDRD 30; Glucose 157 mg/dL (83-110); Potassium 3.4 mmol/L (3.5-5.1); Sodium 153 mmol/L (136-145)
[2018-01-27 15:14] LABS: Chloride 129 mmol/L (98-107)
--- NOTE | 2018-01-27 16:39 | CON ---
DATE OF CONSULTATION: 01/27/2018 CONSULTING PHYSICIAN: Dr. Arellano REASON FOR CONSULTATION: Acute kidney injury. REASON FOR ADMISSION: Altered mentation. HISTORY OF PRESENT ILLNESS: This is a 73-year-old male from [place] was traveling to [place] to visit his friend. He was brought to the hospital for altered mentation. He does have a history of hepatitis C, cirrhosis, alcohol abuse, hypertension, hypothyroidism, and probably chronic kidney disease, too. The patient is feeling better now. He is thirsty today. No nausea, vomiting, no chest pain or palpitation reported. No fever or chills. No skin rash. PAST MEDICAL HISTORY: Positive for cirrhosis, hepatitis C, alcohol abuse, coronary artery disease, hypertension, hypothyroidism, and polysubstance abuse, arthritis. PAST SURGICAL HISTORY: Cholecystectomy, ankle surgery, right orchiectomy. FAMILY HISTORY: Positive for heart disease. SOCIAL HISTORY: Smokes and drinks. History of polysubstance abuse. HOME MEDICATIONS: Trazodone, Xifaxan, Synthroid, lactulose, Imdur, Lasix, Lipitor, Plavix. ALLERGIES: PENICILLIN. CODE STATUS: DNR. REVIEW OF SYSTEMS: The following complete review of systems was negative, unless otherwise mentioned in the HPI or below: Constitutional: Weight loss or gain, ability to conduct usual activities. Skin: Rash, itching. Eyes: Double vision, pain. ENT/Mouth: Nose bleeding, neck stiffness, pain, tenderness. Cardiovascular: Palpitations, dyspnea on exertion, orthopnea. Respiratory: Shortness of breath, wheezing, cough, hemoptysis, fever or night sweats. Gastrointestinal: Poor appetite, abdominal pain, heartburn, nausea, vomiting, constipation, or diarrhea. Genitourinary: Urgency, frequency, dysuria, nocturia. Musculoskeletal: Pain, swelling. Neurologic/Psychiatric: Anxiety, depression. Allergy/Immunologic: Skin rash, bleeding tendency. PHYSICAL EXAMINATION: GENERAL: This is an elderly male in no apparent distress. VITAL SIGNS: Temperature 98.0, pulse 60, respiratory 17, blood pressure 155/70. HEENT: Atraumatic, normocephalic. Oral mucosa is moist. NECK: Supple. HEART: S1, S2 heard. Rate and rhythm regular. RESPIRATORY: Clear. ABDOMEN: Soft. MUSCULOSKELETAL: No tenderness. No edema. SKIN: No skin rash. NEUROLOGIC: Alert, awake. PSYCHIATRIC: Mood and affect normal. LABORATORY: Hemoglobin is 9.2. Potassium is 3.4, BUN 43, creatinine is 2.1. ASSESSMENT AND PLAN: 1. Acute kidney injury on chronic kidney disease stage 3 versus chronic kidney disease stage 3. Renal function seems to be stable, could be his baseline. Recommend to get medical records from his primary care physician. 2. Hypernatremia. Agree with stopping IV fluids with normal saline and administer free water as tolerated. 3. Hypokalemia, replace. 4. Acidosis. 5. Hyperchloremia. 6. Anemia. 7. History of cirrhosis.- consider albumin if no improvement in renal function. 8. Polysubstance abuse. Prognosis is guarded. Creatinine could be at his baseline. Get records from primary care physician and continue free water for hyponatremia. We will follow. Avoid nephrotoxins. We will continue to follow. Thank you for the consult. LIZZIE
--- NOTE | 2018-01-27 17:02 | CON ---
DATE OF CONSULTATION: 01/27/2018. REASON FOR CONSULTATION: Abnormal GI imaging, cirrhosis of the liver. CONSULTING PHYSICIAN: Miguel Stone MD HISTORY OF PRESENT ILLNESS: The patient is a 73-year-old male with past medical history of coronary artery disease, hypertension, hypothyroidism, osteoarthritis, polysubstance abuse with possible recen t cocaine use, chronic hepatitis C infection and cirrhosis complicated by hepatic encephalopathy and ascites, presenting with altered mental status and abnormal GI imaging. The patient was initially ad mitted to the hospital on 01/24/2018 with complaints of altered mental status. He was brought here b y a friend with complaints that he was having difficulty taking his medications and interacting with the world around him. He was subsequently admitted to [facility] for further evaluation. G iven his history of hepatic encephalopathy, he was started on lactulose 30 mL 3 times daily and has h ad a slowly resolving process with his mental sensorium since then. He has also had noted decreased ammonia levels during this admission as well. However, over the last 24-48 hours, he has had increas ing abdominal distention with a KUB concerning for possible small-bowel obstruction. Small bowel fol low through performed on 01/26 showed gaseous distention of the abdomen in the colon and the small odilia wel, but no evidence of bowel obstruction. Also on admission, he was noted to have an elevated creat inine, concerning for possible prerenal azotemia and placed on IV fluids. Currently, the patient sta karan that he is doing well, but he is extremely thirsty and was perseverating on asking for water duri ng the entire interview. He endorses mild cramping abdominal pain located generalized throughout the entire abdomen, but denies any other symptoms other than feeling cold. Currently denies any nausea, vomiting, fevers, chills, shortness of breath, chest pain, odynophagia, dysphagia, lower extremity e paris or jaundice. 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 However, per interview, he was alert and oriented x3 (coul d not name the date). REVIEW OF SYSTEMS: A 10-category review of systems was obtained with all responses negative except f or the pertinent positives as listed in the HPI. PAST MEDICAL HISTORY: As per HPI. PAST SURGICAL HISTORY: Cholecystectomy, right ankle surgery and right orchiectomy. FAMILY HISTORY: Coronary artery disease (mother). Denies any GI malignancies or liver disease. SOCIAL HISTORY: Smokes approximately 1 pack per day for the last 40+ years. Possible recent methamp hetamine and/or cocaine use. Denies any alcohol use over the last 6 years. OUTPATIENT MEDICATIONS: Reviewed. ALLERGIES: PENICILLIN. PHYSICAL EXAMINATION: VITAL SIGNS: Temperature of 98, pulse 61, blood pressure 155/70, respiratory rate 18, satting 98% on room air. GENERAL: The patient is lying comfortably in bed, in no acute distress, alert and oriented x3, able to answer questions effectively and was able to determine where he was and why he was here, but could not name the date. NECK: Supple. No JVD noted. CARDIOVASCULAR: Regular rate and rhythm with no discernible murmurs, gallops or rubs. RESPIRATORY: Clear to auscultation bilaterally with no discernible wheezes or rales. ABDOMEN: High-pitched normoactive bowel sounds, soft, nontender. Moderate abdominal distention. EXTREMITIES: No cyanosis, clubbing or edema. LABORATORY DATA: CBC with a white blood cell count of 11.1, hemoglobin 9.2, hematocrit 27.2, platele ts 100. Chemistry with a sodium of 153, potassium 3.3, chloride 129, CO2 18, BUN 42, creatinine 1.97 , glucose 129, AST 28, ALT 11, alkaline phosphatase 76, total bilirubin 1.1. INR 1.7. IMAGING DATA: Small bowel follow through obtained on 01/26/2018 showed contrast media extending to t he colon within 1 hour and 15 minutes. There was no evidence for dilated small bowel or small-bowel obstruction. The gaseous distention of the bowel throughout the abdomen and pelvis is consistent wit h nonspecific gaseous distention of the colon. ASSESSMENT AND PLAN: The patient is a 73-year-old male with past medical history of coronary artery disease, hypertension, hypothyroidism, osteoarthritis, polysubstance abuse, chronic hepatitis C infec tion and cirrhosis complicated by hepatic encephalopathy and ascites, presenting with probable hepati c encephalopathy and increased abdominal distention. Cirrhosis. The patient is presenting with a prior history of cirrhosis with the most likely etiology being the combination of alcohol abuse and chronic hepatitis C infection, currently presenting with decompensated disease as evidenced by prior history of ascites and hepatic encephalopathy. Currently with a MELD score of 19, which confers a 3%-4% 90-day mortality. It is unclear what maintenance for cirrhosis has been done by his vertical lathe operator in [place] including screening for esophageal varices and/o r hepatocellular carcinoma. However, per patient, he denies any history of GI bleeding/variceal blee ding or lower extremity edema. RECOMMENDATIONS: 1. Would continue to trend INR daily as well as creatinine daily for determination of MELD score and possible worsening of liver function. 2. Would attempt to obtain records from vertical lathe operator in [place] to determine baseline function. Hepatic encephalopathy. The patient is presenting with a history of hepatic encephalopathy and had b een taking lactulose as an outpatient for this particular condition with what seems like good control of this condition. However, per chart review, it seems that he has been prone to intermittent medic ation noncompliance with episodes of hepatic encephalopathy throughout the year. Upon presentation d uring this admission, his initial clinical picture was more consistent with hepatic encephalopathy an d seems to have improved with the administration of increased lactulose. However, over the last 24 h ours, he had approximately 9 liquid bowel movements concerning for overdosing of the lactulose during this admission, which could also contribute to increased abdominal distention. At this time, the re commended daily number of bowel movements that the patient should be having should be between 3-4 bow el movements daily and would therefore recommend titration of the lactulose to this particular goal. RECOMMENDATIONS: 1. We will decrease the patient to dosing of lactulose 15 mL twice daily and titrate either increasi ngly or decreasingly to a goal of 3-4 bowel movements daily. 2. Would continue to monitor clinically for improvement or worsening of hepatic encephalopathy. Ser ial ammonia levels have not been shown to be helpful for prognosis or response to treatment. 3. Would recommend obtaining prior vertical lathe operator records to determine baseline mental status. We will continue to follow. Please call with any questions.
--- NOTE | 2018-01-27 18:26 | EKG ---
Test Reason : Blood Pressure : / mmHG Vent. Rate : 081 BPM Atrial Rate : 081 BPM P-R Int : 158 ms QRS Dur : 152 ms QT Int : 460 ms P-R-T Axes : 063 064 064 degrees QTc Int : 534 ms Sinus rhythm with Premature atrial complexes with Abberant conduction Right bundle branch block Abnormal ECG No previous ECGs available Confirmed by SABINO DAMON, DR. Nuñez ([id number]) on 01/27/2018 6:26:13 PM Referred By: TALIB Confirmed By:DR. Joaquin GALLO MD
[2018-01-28] MEDS: Dextrose 5% in Water 1,000 ML IV SCH ×3 (03:19→22:06)
[2018-01-28 05:10] LABS: #Basophils 0.1 thou/uL (0.0-0.2); #Eosinphils 0.8 thou/uL (0.0-0.7); #Lymphocytes 3.2 thou/uL (1.20-3.40); %Basophils 0.5 % (0.0-1.0); %Eosinophils 6.4 % (0.0-10.0); %Lymphocytes 24.5 % (21.0-51.0); %Monocytes 7.8 % (0.0-10.0); %Neutrophils 60.7 % (42.0-75.0); Hemoglobin 9.3 g/dL (14.0-18.0); Mean Corpuscular HGB CONC 33.9 g/dL (32.0-36.0); Mean Corpuscular Hemoglobin 30.2 pg (27.0-31.0); Mean Corpuscular Volume 89.2 fl (80.0-94.0); Mean Platelet Volume 8.5 fL (7.4-10.4); Platelet Count 104 thou/uL (130-400); RBC Distribution Width 14.5 % (11.5-14.5); Red Blood Cell (RBC) Count 3.07 mill/uL (4.70-6.10); White Blood Cell (WBC) Count 13.1 thou/uL (4.8-10.8)
[2018-01-28 05:29] LABS: ALT (SGPT) 10 U/L (8-55); AST (SGOT) 26 U/L (5-34); Albumin 2.1 g/dL (3.4-4.8); Alkaline Phosphatase 75 U/L (40-150); Anion Gap 8 mmol/L (10-20); BUN (Urea Nitrogen) 40 mg/dL (8.4-25.7); Calc. Creatinine Clearance 34 mL/min (70-130); Calcium 8.2 mg/dL (7.8-10.44); Carbon Dioxide 18 mmol/L (23-31); Chloride 122 mmol/L (98-107); Estimated GFR-MDRD 28; Glucose 151 mg/dL (83-110); Potassium 3.1 mmol/L (3.5-5.1); Protein, Total 6.1 g/dL (5.8-8.1); Sodium 145 mmol/L (136-145)
--- NOTE | 2018-01-28 05:50 | PDOC.FM ---
- Subjective Subjective: Mr. Alva seen at bedside this morning. He is improving from a mental status standpoint. He is A&OX4 today, which is quite the improvement from yesterday. He has no complaints other than dry mouth. There were no acute events overnight. He had about 3-4 BMs yesterday. Denies any fever, abdominal pain, n /v, chest pain, dyspnea. - Objective MAR Reviewed: Yes Vital Signs & Weight: Vital Signs (12 hours) Temp Pulse Resp BP Pulse Ox 01/27/18 20:00 98.0 F 60 16 155/71 H 95 Weight Admit Weight 82.01 kg Weight 82.01 kg I&O: 01/26/18 01/27/18 01/28/18 06:59 06:59 06:59 Intake Total 380 2670 1790 Output Total 800 550 150 Balance -420 2120 1640 Result Diagrams: 01/28/18 04:20 01/28/18 04:20 <Miguel Stone - Last Filed: 01/28/18 06:48> - Objective Vital Signs & Weight: Vital Signs (12 hours) Temp Pulse Resp BP Pulse Ox 01/28/18 11:27 98.1 F 55 L 20 136/62 99 01/28/18 08:37 97.9 F 60 20 166/72 H 99 01/28/18 08:35 97.9 F 60 18 99 01/28/18 07:01 57 L 170/71 H Weight Admit Weight 82.01 kg Weight 82.01 kg I&O: 01/27/18 01/28/18 01/29/18 06:59 06:59 06:59 Intake Total 2670 3890 Output Total 550 375 Balance 2120 3515 Result Diagrams: 01/28/18 04:20 01/28/18 04:20 <Maritza Wilhelm - Last Filed: 01/28/18 16:08> Phys Exam - Physical Examination Constitutional: NAD HEENT: moist MMs, sclera anicteric Neck: no JVD, full ROM Respiratory: no wheezing, no rales, no rhonchi, clear to auscultation bilateral Cardiovascular: RRR, no significant murmur Gastrointestinal: non-tender, positive bowel sounds marked distention of abdomen, no fluid wave Musculoskeletal: pulses present, edema present Neurological: non-focal, moves all 4 limbs Psychiatric: normal affect Deviation from normal: A&OX4 Skin: no rash <Miguel Stone - Last Filed: 01/28/18 06:48> Dx/Plan (1) BOO (acute kidney injury) Code(s): N17.9 - ACUTE KIDNEY FAILURE, UNSPECIFIED Status: Acute (2) Acute hepatic encephalopathy Code(s): K72.00 - ACUTE AND SUBACUTE HEPATIC FAILURE WITHOUT COMA Status: Acute (3) Elevated lactic acid level Code(s): R79.89 - OTHER SPECIFIED ABNORMAL FINDINGS OF BLOOD CHEMISTRY Status : Acute (4) Hypernatremia Code(s): E87.0 - HYPEROSMOLALITY AND HYPERNATREMIA Status: Acute (5) Hyperchloremia Code(s): E87.8 - OTH DISORDERS OF ELECTROLYTE AND FLUID BALANCE, NEC Status: Acute (6) Hepatitis C Code(s): B19.20 - UNSPECIFIED VIRAL HEPATITIS C WITHOUT HEPATIC COMA Status: Chronic (7) Hypertensive urgency Code(s): I16.0 - HYPERTENSIVE URGENCY Status: Acute (8) Liver disease, chronic, with cirrhosis Code(s): K74.60 - UNSPECIFIED CIRRHOSIS OF LIVER; K76.9 - LIVER DISEASE, UNSPECIFIED Status: Chronic - Plan Plan: Acute Hepatic Encephalopathy - Patient with hx of liver cirrhosis 2/2 Hep C and Alcohol abuse. OOT visiting friend here in [place] and has hx of recurrent encephalopathic episodes. Initially A& OX1, has been A&OX2 since. - Continue Lactulose 10 mg BID - has a hx of polysubstance abuse. UDS + for methamphetamines - Consulted Nephrology, Dr. Barragan, appreciate recs - Consulted GI, Dr. Maier, appreciate recs. Will continue to trend Daily INRs and Cr BOO: - Cr. 1.67, up to 2.29, urine output has remained low - May be acute on chronic kidney injury. One Cr from lab report from [place] had Cr of 1.5. - FeNa 0.3% suggesting prerenal cause, likely dehydration - some concern for hepatorenal syndrome, consulted GI and nephro. - Continue D5W at 125 ml/hr, per nephro recs - We have records from cardiology and GI from [place], waiting for nephrology records from [place]. Hypernatremia - Na normalized to 145 - continue D5W @ 125 ml/hr Hyperchloremia - improved this morning - likely 2/2 dehydration - IVF and continue to monitor Elevate lactate - Resolved with hydration. HTN: - initially presented in hypertensive urgency - has received multiple doses of Labetalol and Hydralazine for pressures > 180 systolic - increased Coreg to 6.25mg BID and continue monitor Cirrhosis 2/2 Hep C and Alcohol Abuse - followed closely by gastroenterology in [place]. Had to have multiple paracentesis done in november 2017 due to significant ascites and had about 8L drained. - Appreciable mild ascites this morning. Continue to monitor with IVF. Thrombocytopenia - 2/2 Cirrhosis Hyperbilirubinemia - 2/2 Cirrhosis Hypoalbuminemia - 2/2 Cirrhosis Methamphetamine use - program counselor on cessation Hypothyroidism - TSH wnl. Cont home synthroid. Possible SBO, ruled out: - KUB done showing possible SBO. Patient with BMx9 over the last 24hrs. - Abdomen is tender on exam today, consider NGT <Miguel Stone - Last Filed: 01/28/18 06:48> Attending Addendum - Attending Addendum Date/Time: 01/28/18 1879 I personally evaluated the patient and discussed the management with Dr. Stone. I agree with the History, Examination, Assessment and Plan documented above with any addition or exceptions noted below. The patient's abdomen is still distended but he states he feels better. Creatinine is worsened and potassium is low, will replace. Monitor urine output. Patient is more alert today. Will follow-up with GI recs. <Maritza Wilhelm - Last Filed: 01/28/18 16:08>
[2018-01-28] MEDS: Levothyroxine Sodium 125 MCG TAB PO SCH (06:20)
[2018-01-28] MEDS ORDERED: Potassium Chloride 20 MEQ TAB PO SCH (07:30)
[2018-01-28] MEDS: Carvedilol 3.125 MG TAB PO SCH ×2 (08:28→17:23)
[2018-01-28] MEDS: Spironolactone 25 MG TAB PO SCH (08:28)
[2018-01-28] MEDS: Simethicone Chewable 80 MG TAB PO SCH ×4 (08:29→20:13)
[2018-01-28] MEDS: Atorvastatin Calcium 20 MG TAB PO SCH (08:29)
[2018-01-28] MEDS: Rifaximin 550 MG TAB PO SCH ×2 (08:29→20:08)
[2018-01-28] MEDS: Aspirin 325 MG TAB PO SCH (08:30)
[2018-01-28 08:38] LABS: Prothrombin Time 23.7 SEC (12.0-14.7)
[2018-01-28] MEDS: Albumin 25% 25 GM/100 ML BOT IVPB SCH ×3 (11:30→22:07)
--- NOTE | 2018-01-28 14:23 | PRG ---
DATE OF SERVICE: 01/28/2018 SUBJECTIVE: Patient was seen and examined at bedside and overnight events noted. Patient denies any shortness of breath or chest pain or palpitation. No history of nausea or vomiting or diarrhea or f ever or chills or cramps. OBJECTIVE: GENERAL: This is an elderly male in no apparent distress. VITAL SIGNS: Temperature 98.1, pulse 75, respiratory rate 18, blood pressure 137/62. HEENT: Atraumatic, normocephalic. Oral mucosa is moist. NECK: Supple CARDIOVASCULAR: S1 and S2 heard. Rate and rhythm regular. RESPIRATORY: Clear to auscultation. GASTROINTESTINAL: Abdomen is soft. MUSCULOSKELETAL: No tenderness, no edema. DERMATOLOGIC: No skin rash. NEUROLOGIC: Alert and awake and oriented x3. No focal neurologic deficits. Moving all the extremit ies. PSYCHIATRIC: Mood and affect normal. LABORATORY DATA: Potassium is 3.1, BUN is 40, creatinine is 2.29. ASSESSMENT: 1. Acute kidney injury on chronic kidney, stage 3. His baseline creatinine is 1.5. Creatinine is s lightly up this morning. Continue supportive care. 2. Hypernatremia with hyperchloremia, better. 3. Hypokalemia, replaced. 4. Acidosis. 5. Anemia. 6. Cirrhosis. 7. Polysubstance abuse. PLAN: Follow up with GI. Continue supportive care. Avoid nephrotoxins. We will monitor renal func tion.
--- NOTE | 2018-01-28 21:50 | PRG ---
DATE OF SERVICE: 01/28/2018 REASON FOR CONSULTATION: Cirrhosis of the liver, possible hepatorenal syndrome. SUBJECTIVE: The patient states that he is doing much better today with improvement of his abdominal pain, abdominal distention and less than bowel movements when compared to previous. Per nursing staf f, he has had approximately 4 semi-solid bowel movements over the last 24 hour period. Currently, de nies any nausea, vomiting, fevers, chills, abdominal pain, odynophagia, dysphagia or constipation. OBJECTIVE: VITAL SIGNS: Temperature 97.8, pulse 56, blood pressure 140/54, respiratory rate 18, satting 99% on room air. GENERAL: The patient is lying in bed in no acute distress. CARDIOVASCULAR: Regular rate and rhythm with no discernible murmurs, gallops or rubs. RESPIRATORY: Clear to auscultation bilaterally. ABDOMEN: Normoactive bowel sounds, soft, nontender. Moderate abdominal distention. EXTREMITIES: No cyanosis, clubbing or edema. LABORATORY DATA: CBC with a white blood cell count of 13.1, hemoglobin 9.3, hematocrit 27.4, platele ts 104. INR 2.0. Chemistry with sodium of 145, potassium 3.1, chloride 122, CO2 is 18, BUN 40, crea tinine 2.29, glucose 151, AST 26, ALT 10, alkaline phosphatase 75, total bilirubin is 1.0. Current c alculation of MELD score of 22. IMAGING DATA: No current GI imaging is available for review. ASSESSMENT AND PLAN: The patient is a 73-year-old male with past medical history of coronary artery disease, hypertension, hypothyroidism, osteoarthritis, polysubstance abuse, chronic hepatitis C infec tion and cirrhosis complicated by hepatic encephalopathy and ascites, presenting with resolving hepat ic encephalopathy, increased abdominal distention and acute on chronic renal insufficiency. Cirrhosis: Patient is presenting with a prior history of cirrhosis with the most likely etiology dl ng combination of alcohol abuse and chronic hepatitis C infection, currently presented with decompens ated disease with a current MELD score of 22, which is a change from yesterday of 19. At this point, the primary determinant for his MELD is his worsening creatinine/renal function that is slightly con cerning for the early stages of hepatorenal syndrome. However, he has been on diuretic therapy durin g this hospitalization and his labs are consistent with a prerenal azotemia which could contribute to the current clinical picture. RECOMMENDATIONS: 1. We would continue to trend INR daily as well as creatinine for determination of MELD score and po ssibly worsening of liver function. 2. We will place the patient on albumin 25 grams q.6 hours as well as discontinuation of his spirono lactone in an effort to correct his prerenal azotemia and improve renal function. 3. Continue infusion of IV fluids as you are doing and clear liquid diet for oral intake. Could con enologist advancement of his diet tomorrow if renal function improves. Hepatic encephalopathy: The patient is presenting with a history of hepatic encephalopathy and had b een taking lactulose as an outpatient with good control of this condition. However, per interview wi th the patient and per chart review, it sounds as if he had some periods where he did not take his me dication. There was evidence with further exacerbation of this condition. During this admission, he was initially placed on lactulose 30 mL 3 times daily and was having approximately 8-9 semi-solid li quid bowel movements; however, since decreased to 15 mL twice daily, he is now having approximately 4 bowel movements over the last 24 hours with improvement of his abdominal distention and mental statu s. RECOMMENDATIONS: We would continue dosing of lactulose at 15 mL twice daily and titrate to a goal of 3-4 bowel movements daily, continue to monitor clinically for improvement or worsening of hepatic en cephalopathy. We will continue to follow. Please call with any questions.
[2018-01-29] MEDS: Levothyroxine Sodium 125 MCG TAB PO SCH (05:20)
[2018-01-29] MEDS: Albumin 25% 25 GM/100 ML BOT IVPB SCH ×4 (05:20→23:04)
[2018-01-29 05:37] LABS: Prothrombin Time 23.2 SEC (12.0-14.7)
[2018-01-29 05:42] LABS: ALT (SGPT) 9 U/L (8-55); AST (SGOT) 23 U/L (5-34); Albumin 2.4 g/dL (3.4-4.8); Alkaline Phosphatase 54 U/L (40-150); Anion Gap 7 mmol/L (10-20); BUN (Urea Nitrogen) 32 mg/dL (8.4-25.7); Bilirubin, Total 1.2 mg/dL (0.2-1.2); Calc. Creatinine Clearance 42 mL/min (70-130); Calcium 7.7 mg/dL (7.8-10.44); Carbon Dioxide 18 mmol/L (23-31); Chloride 111 mmol/L (98-107); Estimated GFR-MDRD 36; Globulin 2.8 g/dL (2.4-3.5); Glucose 120 mg/dL (83-110); Potassium 3.2 mmol/L (3.5-5.1); Protein, Total 5.2 g/dL (5.8-8.1); Sodium 133 mmol/L (136-145)
[2018-01-29 06:03] LABS: Band 2 % (5-11); Eosinophils 6 % (0-10); Hemoglobin 7.5 g/dL (14.0-18.0); Lymphocytes 32 % (21-51); MDiff Complete? YES; Mean Corpuscular Hemoglobin 30.3 pg (27.0-31.0); Mean Corpuscular Volume 88.9 fl (80.0-94.0); Monocytes 2 % (0-10); Myelocyte 1 % (0-0); Neutrophil 57 % (42-75); PLT Morphology Comment Appears Decreased; Platelet Count 57 thou/uL (130-400); RBC Distribution Width 14.4 % (11.5-14.5); RBC Morphology Normal; Red Blood Cell (RBC) Count 2.49 mill/uL (4.70-6.10); White Blood Cell (WBC) Count 6.7 thou/uL (4.8-10.8)
[2018-01-29] MEDS: Atorvastatin Calcium 20 MG TAB PO SCH (09:10)
[2018-01-29] MEDS: Simethicone Chewable 80 MG TAB PO SCH ×4 (09:10→21:06)
[2018-01-29] MEDS: Carvedilol 3.125 MG TAB PO SCH ×2 (09:11→16:47)
[2018-01-29] MEDS: Rifaximin 550 MG TAB PO SCH ×2 (09:11→21:06)
--- NOTE | 2018-01-29 09:19 | PDOC.FM ---
- Subjective Subjective: 73 yo M here for AMS 2/2 hepatic encephalopathy. A&O x3 this morning. He has no specific complaints. He denies abdominal pain, fever, chest pain, sob, and all other symptoms in ROS. He states that he had 4 or 5 loose stools yesterday. There were no acute events over night. - Objective Vital Signs & Weight: Vital Signs (12 hours) Temp Pulse Resp BP Pulse Ox 01/29/18 09:12 52 L 146/68 H 01/29/18 07:16 98.2 F 54 L 16 99 Weight Admit Weight 82.01 kg Weight 82.01 kg I&O: 01/28/18 01/29/18 01/30/18 06:59 06:59 06:59 Intake Total 3890 3490 Output Total 375 630 Balance 3515 2860 Result Diagrams: 01/29/18 05:18 01/29/18 05:18 <Alex Zelaya - Last Filed: 01/29/18 09:18> - Objective Vital Signs & Weight: Vital Signs (12 hours) Temp Pulse Resp BP Pulse Ox 01/29/18 16:17 98.2 F 55 L 16 144/61 H 99 01/29/18 11:41 97.6 F 52 L 16 136/64 98 01/29/18 09:12 52 L 146/68 H 01/29/18 08:00 98.2 F 52 L 16 99 01/29/18 07:16 98.2 F 54 L 16 99 Weight Admit Weight 82.01 kg Weight 82.01 kg I&O: 01/28/18 01/29/18 01/30/18 06:59 06:59 06:59 Intake Total 3890 3490 1775 Output Total 375 630 335 Balance 3515 2860 1440 Result Diagrams: 01/29/18 09:23 01/29/18 09:23 <Saskia Celeste - Last Filed: 01/29/18 18:02> Phys Exam - Physical Examination Constitutional: NAD HEENT: moist MMs Neck: supple, full ROM Respiratory: clear to auscultation bilateral Cardiovascular: RRR systolic murmur, non radiating Distended, non tender, positive bowel sounds, no fluid wave Musculoskeletal: no edema Neurological: non-focal, normal sensation, moves all 4 limbs Psychiatric: normal affect, A&O x 3 Skin: no rash <Pulvino,Alex - Last Filed: 01/29/18 09:18> Dx/Plan (1) BOO (acute kidney injury) Code(s): N17.9 - ACUTE KIDNEY FAILURE, UNSPECIFIED Status: Acute (2) Acute hepatic encephalopathy Code(s): K72.00 - ACUTE AND SUBACUTE HEPATIC FAILURE WITHOUT COMA Status: Acute (3) Alcohol abuse Code(s): F10.10 - ALCOHOL ABUSE, UNCOMPLICATED Status: Chronic (4) Hyperchloremia Code(s): E87.8 - OTH DISORDERS OF ELECTROLYTE AND FLUID BALANCE, NEC Status: Resolved (5) Hypernatremia Code(s): E87.0 - HYPEROSMOLALITY AND HYPERNATREMIA Status: Resolved (6) Hypertension Code(s): I10 - ESSENTIAL (PRIMARY) HYPERTENSION Status: Chronic (7) Hepatitis C Code(s): B19.20 - UNSPECIFIED VIRAL HEPATITIS C WITHOUT HEPATIC COMA Status: Chronic (8) Liver disease, chronic, with cirrhosis Code(s): K74.60 - UNSPECIFIED CIRRHOSIS OF LIVER; K76.9 - LIVER DISEASE, UNSPECIFIED Status: Chronic - Plan Plan: Acute Hepatic Encephalopathy - Patient with hx of liver cirrhosis 2/2 Hep C and Alcohol abuse. OOT visiting friend here in [place] and has hx of recurrent encephalopathic episodes. He had missed his normal dose of lactulose for a few days prior to admission. Initially A&OX1 was A&O x3 this am - Continue Lactulose 10 mg BID - has a hx of polysubstance abuse. UDS + for methamphetamines - Consulted Nephrology, Dr. Barragan, appreciate recs - Consulted GI, Dr. Maier, appreciate recs. Will continue to trend Daily INRs and Cr BOO: - Cr. 1.88, improved from yesterday. Output is still low but improving - May be acute on chronic kidney injury. One Cr from lab report from [place] had Cr of 1.5. - some concern for hepatorenal syndrome, consulted GI and nephro. Most likely source is pre renal - Continue D5W at 125 ml/hr, per nephro recs. Na has improved, consider stopping extra free water today pending nephro recs. - We have records from cardiology and GI from [place], waiting for nephrology records from [place]. Hypernatremia - Resolved. As above Hyperchloremia - continues to improve. - likely 2/2 dehydration - IVF and continue to monitor Elevate lactate - Resolved HTN: - initially presented in hypertensive urgency, continues to be elevated but improved. - has received multiple doses of Labetalol and Hydralazine for pressures > 180 systolic - increased Coreg to 6.25mg BID and continue monitor Cirrhosis 2/2 Hep C and Alcohol Abuse - followed closely by gastroenterology in [place]. Had to have multiple paracentesis done in november 2017 due to significant ascites and had about 8L drained. - Appreciable mild ascites this morning, now significant fluid wave and non tender. Continue to monitor with IVF. Thrombocytopenia - 2/2 Cirrhosis Hyperbilirubinemia - 2/2 Cirrhosis Hypoalbuminemia - 2/2 Cirrhosis Methamphetamine use - child and family counselor on cessation Hypothyroidism - TSH wnl. Cont home synthroid. <Alex Zelaya - Last Filed: 01/29/18 09:18> (1) Acute hepatic encephalopathy Code(s): K72.00 - ACUTE AND SUBACUTE HEPATIC FAILURE WITHOUT COMA Status: Acute (2) Liver disease, chronic, with cirrhosis Code(s): K74.60 - UNSPECIFIED CIRRHOSIS OF LIVER; K76.9 - LIVER DISEASE, UNSPECIFIED Status: Chronic (3) Hepatitis C Code(s): B19.20 - UNSPECIFIED VIRAL HEPATITIS C WITHOUT HEPATIC COMA Status: Chronic (4) Alcohol abuse Code(s): F10.10 - ALCOHOL ABUSE, UNCOMPLICATED Status: Chronic (5) Coronary artery disease Code(s): I25.10 - ATHSCL HEART DISEASE OF [place] CORONARY ARTERY W/O ANG PCTRS Status: Acute (6) Hypothyroidism Code(s): E03.9 - HYPOTHYROIDISM, UNSPECIFIED Status: Acute (7) Hypertension Code(s): I10 - ESSENTIAL (PRIMARY) HYPERTENSION Status: Chronic (8) Hypertensive urgency Code(s): I16.0 - HYPERTENSIVE URGENCY Status: Acute (9) Elevated lactic acid level Code(s): R79.89 - OTHER SPECIFIED ABNORMAL FINDINGS OF BLOOD CHEMISTRY Status : Acute (10) BOO (acute kidney injury) Code(s): N17.9 - ACUTE KIDNEY FAILURE, UNSPECIFIED Status: Acute <Saskia Celeste - Last Filed: 01/29/18 18:02> Attending Addendum - Attending Addendum Date/Time: 01/29/18 4882 I personally evaluated the patient and discussed the management with Dr. Zelaya and Dr. Easton I agree with the History, Examination, Assessment and Plan documented above with any addition or exceptions noted below. 73 yo female with Hep C/alcholic cirhosis admitted for hepatic encephalopathy Has greatly improved since admission due to orientation. GI is following. Currently concerned for hepatorenal syndrome. MELD score worsening. Bradycardia today related to BBlocker which was increased from home dose. Will decrease back to home does. If BP needs to be managed will use less AV partha agents. Montior anemia closely ABrayMD <Saskia Celeste - Last Filed: 01/29/18 18:02>
[2018-01-29 09:42] LABS: #Eosinphils 0.6 thou/uL (0.0-0.7); #Lymphocytes 1.5 thou/uL (1.20-3.40); #Monocytes 0.5 thou/uL (0.11-0.59); #Neutrophils 3.6 thou/uL (1.40-6.50); %Basophils 0.7 % (0.0-1.0); %Eosinophils 9.6 % (0.0-10.0); %Lymphocytes 23.5 % (21.0-51.0); %Monocytes 7.3 % (0.0-10.0); %Neutrophils 58.9 % (42.0-75.0); Hemoglobin 7.8 g/dL (14.0-18.0); Mean Corpuscular HGB CONC 33.8 g/dL (32.0-36.0); Mean Corpuscular Hemoglobin 30.3 pg (27.0-31.0); Mean Corpuscular Volume 89.6 fl (80.0-94.0); Mean Platelet Volume 9.4 fL (7.4-10.4); Platelet Count 61 thou/uL (130-400); RBC Distribution Width 14.3 % (11.5-14.5); Red Blood Cell (RBC) Count 2.58 mill/uL (4.70-6.10); White Blood Cell (WBC) Count 6.1 thou/uL (4.8-10.8)
[2018-01-29 10:02] LABS: ALT (SGPT) 8 U/L (8-55); AST (SGOT) 19 U/L (5-34); Albumin 2.7 g/dL (3.4-4.8); Alkaline Phosphatase 52 U/L (40-150); Anion Gap 6 mmol/L (10-20); BUN (Urea Nitrogen) 32 mg/dL (8.4-25.7); Bilirubin, Total 1.3 mg/dL (0.2-1.2); Calc. Creatinine Clearance 42 mL/min (70-130); Calcium 7.9 mg/dL (7.8-10.44); Carbon Dioxide 19 mmol/L (23-31); Chloride 110 mmol/L (98-107); Estimated GFR-MDRD 35; Globulin 2.6 g/dL (2.4-3.5); Glucose 203 mg/dL (83-110); Potassium 3.2 mmol/L (3.5-5.1); Protein, Total 5.3 g/dL (5.8-8.1); Sodium 132 mmol/L (136-145)
--- NOTE | 2018-01-29 10:28 | PRG ---
DATE OF SERVICE: 01/29/2018 REASON FOR CONSULTATION: Cirrhosis of the liver, possible hepatorenal syndrome. SUBJECTIVE: The patient states that he is doing well with no acute events or problems overnight. Pe r nursing staff he has not had any episodes of GI bleeding, although he did appear to have some blood tinged urine within the last 24 hours. Currently denies any nausea, vomiting, fevers, chills, abdom inal pain, odynophagia, dysphagia, or constipation. He also states that his abdominal distention has improved, albeit slightly. OBJECTIVE: VITAL SIGNS: Temperature 98.2, pulse 52, blood pressure 146/68, respiratory rate 16, satting 99% on room air. LABORATORY: CBC with a white blood cell count of 6.7, hemoglobin 7.5, hematocrit 22.1, platelets 57. INR 2.0. Chemistry with a sodium of 133, potassium 3.2, chloride 111, CO2 18, BUN 32, creatinine 1 .88. Current calculation of MELD score is 24. IMAGING DATA: No current GI imaging is available for review. ASSESSMENT AND PLAN: The patient is a 73-year-old male with past medical history of coronary artery disease, hypertension, hypothyroidism, osteoarthritis, polysubstance abuse, chronic hepatitis C infec tion, cirrhosis complicated by hepatic encephalopathy and ascites initially presenting with hepatic e ncephalopathy (now resolved), abdominal distention (resolving) and acute on chronic renal insufficien cy. Cirrhosis. The patient is presenting with a prior history of cirrhosis with the most likely etiology being combination of alcohol abuse and chronic hepatitis C infection, currently presenting with deco mpensated disease with a MELD score of 22, which continues to uptrend during this hospitalization. H e did have a significant drop in his CBC and chemistry overnight which does raise some concern for po ssible bad lab values. He was instituted on albumin infusion as well as discontinuation of his diure tic therapy yesterday and seems to have improved well with this particular regimen with decrease in h is creatinine today; however, with a decrease in his H&H from yesterday to today and possible blood t inged urine, there is concern for possible GI bleeding, although with a 2 unit drop within 24 hours o vert bleeding should have been noticed clinically. At this time given his improvement in renal statu s with discontinuation of diuretics and albumin administration, hepatorenal syndrome is much less lik jorge alberto, but more related to prerenal azotemia. RECOMMENDATIONS: 1. Would continue to trend INR and LFTs daily for determination of MELD score and possibly worsening liver function. 2. Would continue the patient on albumin 25 grams q.6h. as well as hold the spironolactone for prere nal azotemia. 3. Would advance the patient's diet today with discontinue of additional IV fluids. Hepatic encephalopathy. The patient presented with a history of hepatic encephalopathy for which he has been on lactulose as an outpatient; however, he did present with altered mental status felt to be due to worsening with hepatic encephalopathy due to medication noncompliance. However, during this admission with lactulose therapy; however, he has responded well with return of his sensorium. Yeste rday he had approximately 3-4 semisolid bowel movements per day with administration of lactulose 15 m L twice daily. RECOMMENDATIONS: 1. Would continue dosing of lactulose 15 mL twice daily and titrate to goal of 3-4 bowel movements d aily. 2. We will continue to follow. Please call with any questions.
[2018-01-29] MEDS ORDERED: Potassium Chloride 20 MEQ TAB PO SCH (11:37)
--- NOTE | 2018-01-29 11:51 | PRG ---
DATE OF SERVICE: 01/29/2018 SUBJECTIVE: This is a 73-year-old gentleman being seen for acute kidney injury. The patient denies any nausea, vomiting or chest pain. PHYSICAL EXAMINATION: GENERAL: Patient is awake, alert. VITAL SIGNS: Afebrile, pulse 75, breathing 16, blood pressure 140/60. OBJECTIVE: See above. Awake, alert, in no acute distress. GENERAL APPEARANCE AND MENTAL STATUS: Fair. HEAD/NECK: Normocephalic. Atraumatic. EYES: EOMI. No deformity. EARS: Clear. No ulcers. NOSE: Intact. No lesions. MOUTH: Clear. No discharge. THROAT: Clear. No exudate. LUNGS: Clear. No crackles. CARDIAC: S1, S2. No rub. ABDOMEN: Benign. BS+. GENITALIA/RECTUM: Simeon absent. BACK/EXTREMITIES: Edema 0+ Ulcer- NEUROLOGICAL: Alert and motor intact. SKIN: Rash- Bruise- LYMPHATICS: Edema- Ulcer- LABORATORY: Potassium 3.8, creatinine 1.89. ASSESSMENT AND RECOMMENDATIONS: 1. Acute kidney injury with chronic kidney disease, stage 3, stable. 2. Hypertension, stable. 3. Anemia, stable. 4. Hypokalemia. Would recommend high potassium diet and giving 20 mEq potassium. No indication for dialysis at this time. Metabolic acidosis has improved.
[2018-01-29] MEDS ORDERED: Carvedilol 3.125 MG TAB PO SCH ×2 (12:10→12:15)
[2018-01-29] MEDS: Potassium Chloride 20 MEQ TAB PO SCH (16:47)
[2018-01-29] MEDS: Dextrose 5% in Water 1,000 ML IV SCH (19:10)
[2018-01-30] MEDS: Levothyroxine Sodium 125 MCG TAB PO SCH (04:38)
[2018-01-30] MEDS: Albumin 25% 25 GM/100 ML BOT IVPB SCH (04:38)
[2018-01-30 05:33] LABS: INR-International Normal Ratio 2.2; Prothrombin Time 25.3 SEC (12.0-14.7)
[2018-01-30 05:38] LABS: #Eosinphils 0.6 thou/uL (0.0-0.7); #Lymphocytes 1.6 thou/uL (1.20-3.40); #Monocytes 0.6 thou/uL (0.11-0.59); #Neutrophils 4.4 thou/uL (1.40-6.50); %Basophils 0.4 % (0.0-1.0); %Lymphocytes 22.3 % (21.0-51.0); %Monocytes 7.7 % (0.0-10.0); %Neutrophils 60.6 % (42.0-75.0); Hemoglobin 7.6 g/dL (14.0-18.0); Mean Corpuscular HGB CONC 34.8 g/dL (32.0-36.0); Mean Corpuscular Hemoglobin 30.4 pg (27.0-31.0); Mean Corpuscular Volume 87.3 fl (80.0-94.0); Platelet Count 62 thou/uL (130-400); RBC Distribution Width 14.1 % (11.5-14.5); Red Blood Cell (RBC) Count 2.49 mill/uL (4.70-6.10); White Blood Cell (WBC) Count 7.2 thou/uL (4.8-10.8)
[2018-01-30 05:44] LABS: ALT (SGPT) 8 U/L (8-55); AST (SGOT) 18 U/L (5-34); Albumin 2.7 g/dL (3.4-4.8); Alkaline Phosphatase 68 U/L (40-150); Anion Gap 7 mmol/L (10-20); BUN (Urea Nitrogen) 32 mg/dL (8.4-25.7); Bilirubin, Total 1.4 mg/dL (0.2-1.2); Calc. Creatinine Clearance 44 mL/min (70-130); Calcium 7.9 mg/dL (7.8-10.44); Carbon Dioxide 19 mmol/L (23-31); Chloride 112 mmol/L (98-107); Estimated GFR-MDRD 38; Globulin 2.7 g/dL (2.4-3.5); Glucose 103 mg/dL (83-110); Protein, Total 5.4 g/dL (5.8-8.1); Sodium 134 mmol/L (136-145)
--- NOTE | 2018-01-30 08:54 | PDOC.FM ---
- Subjective Subjective: 73 M w/hx of untreated Hep C, etoh cirrhosis, and CAD here with acute hepatic encephalopathy. He A&O x4 today states that he is feeling well. He denies abdominal pain, chest pain, sob, n/v, fever/chills. He had multiple semisolid bowel movements yesterday. He denies any new symptoms today. He is tolerating a regular diet well. There were no acute events over night. - Objective MAR Reviewed: Yes Vital Signs & Weight: Vital Signs (12 hours) Temp Pulse Resp BP BP Pulse Ox 01/30/18 07:55 98 F 58 L 16 147/63 H 99 01/30/18 00:00 97.8 F 58 L 18 138/66 96 Weight Admit Weight 82.01 kg Weight 82.01 kg I&O: 01/29/18 01/30/18 01/31/18 06:59 06:59 06:59 Intake Total 3490 2275 Output Total 630 670 Balance 2860 1605 Result Diagrams: 01/30/18 05:18 01/30/18 05:18 <Alex Zelaya - Last Filed: 01/30/18 08:48> - Objective Vital Signs & Weight: Vital Signs (12 hours) Temp Pulse Pulse Resp BP BP BP 01/30/18 17:45 98.2 F 55 L 16 152/54 H 01/30/18 10:54 51 L 147/63 H 01/30/18 08:00 98 F 58 L 16 01/30/18 07:55 98 F 58 L 16 147/63 H Pulse Ox Pulse Ox 01/30/18 17:45 98 01/30/18 10:54 98 01/30/18 08:00 98 01/30/18 07:55 99 Weight Admit Weight 82.01 kg Weight 82.01 kg I&O: 01/29/18 01/30/18 01/31/18 06:59 06:59 06:59 Intake Total 3490 2275 Output Total 630 670 Balance 2860 1605 Result Diagrams: 01/30/18 05:18 01/30/18 05:18 <Saskia Celeste - Last Filed: 01/30/18 17:58> Phys Exam - Physical Examination Constitutional: NAD HEENT: PERRLA, moist MMs, sclera anicteric Neck: no JVD, supple, full ROM Respiratory: no wheezing, clear to auscultation bilateral Cardiovascular: RRR, no significant murmur Gastrointestinal: soft, non-tender, positive bowel sounds Abdomen distended, but non tender and soft. Shifting dullness is present, Musculoskeletal: no edema Neurological: non-focal, normal sensation, moves all 4 limbs Lymphatic: no nodes Psychiatric: normal affect, A&O x 3 Skin: no rash <Alex Zelaya - Last Filed: 01/30/18 08:48> Dx/Plan (1) BOO (acute kidney injury) Code(s): N17.9 - ACUTE KIDNEY FAILURE, UNSPECIFIED Status: Acute (2) Acute hepatic encephalopathy Code(s): K72.00 - ACUTE AND SUBACUTE HEPATIC FAILURE WITHOUT COMA Status: Acute (3) Alcohol abuse Code(s): F10.10 - ALCOHOL ABUSE, UNCOMPLICATED Status: Chronic (4) Hyperchloremia Code(s): E87.8 - OTH DISORDERS OF ELECTROLYTE AND FLUID BALANCE, NEC Status: Resolved (5) Hypernatremia Code(s): E87.0 - HYPEROSMOLALITY AND HYPERNATREMIA Status: Resolved (6) Hypertension Code(s): I10 - ESSENTIAL (PRIMARY) HYPERTENSION Status: Chronic (7) Hepatitis C Code(s): B19.20 - UNSPECIFIED VIRAL HEPATITIS C WITHOUT HEPATIC COMA Status: Chronic (8) Liver disease, chronic, with cirrhosis Code(s): K74.60 - UNSPECIFIED CIRRHOSIS OF LIVER; K76.9 - LIVER DISEASE, UNSPECIFIED Status: Chronic (9) Coronary artery disease Code(s): I25.10 - ATHSCL HEART DISEASE OF [place] CORONARY ARTERY W/O ANG PCTRS Status: Acute (10) Elevated lactic acid level Code(s): R79.89 - OTHER SPECIFIED ABNORMAL FINDINGS OF BLOOD CHEMISTRY Status : Acute (11) Hypothyroidism Code(s): E03.9 - HYPOTHYROIDISM, UNSPECIFIED Status: Acute (12) Hypertensive urgency Code(s): I16.0 - HYPERTENSIVE URGENCY Status: Acute (13) Anemia Code(s): D64.9 - ANEMIA, UNSPECIFIED Status: Chronic QualifierTitle: Anemia type: due to chronic kidney disease - Plan Plan: Acute Hepatic Encephalopathy - Clinically improving day over day, pt no longer encephalopathic. Appears to be stable. MELD score is stable at 24. - Patient with hx of liver cirrhosis 2/2 Hep C and Alcohol abuse. OOT visiting friend here in [place] and has hx of recurrent encephalopathic episodes. He had missed his normal dose of lactulose for a few days prior to admission. Initially A&OX1, has been A&O x3 the past 2 days - Continue Lactulose 10 mg BID per GI recommendation - Consulted Nephrology, Dr. Barragan, appreciate recs - Consulted GI, Dr. Maier, appreciate recs. Will continue to trend Daily INRs and Cr BOO: - Cr. 1.88, improved from yesterday. Output is still low but improving - May be acute on chronic kidney injury. One Cr from lab report from [place] had Cr of 1.5. - some concern for hepatorenal syndrome, consulted GI and nephro. Most likely source is pre renal - Continue D5W at 125 ml/hr, per nephro recs. Na has improved, consider stopping extra free water today pending nephro recs. - We have records from cardiology and GI from [place], waiting for nephrology records from [place]. HTN: - Improved pressure the past 24 hours. Pt is on spironolactone at home, this likely makes up the difference in lack of control. - Coreg was increased to 6.25, however his HR dropped to the 50s therefore it was changed back to 3.125 mg. When aldactone is restarted, he should have better control. Anemia, likely related to chronic disease - Stable and asymptomatic Hypernatremia - Resolved. As above Hyperchloremia - continues to improve. - likely 2/2 dehydration - IVF and continue to monitor Cirrhosis 2/2 Hep C and Alcohol Abuse - followed closely by gastroenterology in [place]. Had to have multiple paracentesis done in november 2017 due to significant ascites and had about 8L drained. - Continued mild ascites this morning, non tender abdomen. Continue to monitor with IVF. Thrombocytopenia - 2/2 Cirrhosis Hyperbilirubinemia - 2/2 Cirrhosis Hypoalbuminemia - 2/2 Cirrhosis Methamphetamine use - ip counsel on cessation Hypothyroidism - TSH wnl. Cont home synthroid. Elevated lactic acid - resolved Dispo: pt is stable and improving. Will follow GI recommendation for dc planning. Pts son will be coming down from [place] to drive pt back at discharge. <Alex Zelaya - Last Filed: 01/30/18 08:48> (1) Acute hepatic encephalopathy Code(s): K72.00 - ACUTE AND SUBACUTE HEPATIC FAILURE WITHOUT COMA Status: Acute (2) Liver disease, chronic, with cirrhosis Code(s): K74.60 - UNSPECIFIED CIRRHOSIS OF LIVER; K76.9 - LIVER DISEASE, UNSPECIFIED Status: Chronic (3) Hepatitis C Code(s): B19.20 - UNSPECIFIED VIRAL HEPATITIS C WITHOUT HEPATIC COMA Status: Chronic (4) Alcohol abuse Code(s): F10.10 - ALCOHOL ABUSE, UNCOMPLICATED Status: Chronic (5) Coronary artery disease Code(s): I25.10 - ATHSCL HEART DISEASE OF [place] CORONARY ARTERY W/O ANG PCTRS Status: Acute (6) Hypothyroidism Code(s): E03.9 - HYPOTHYROIDISM, UNSPECIFIED Status: Acute (7) Hypertension Code(s): I10 - ESSENTIAL (PRIMARY) HYPERTENSION Status: Chronic (8) Hypertensive urgency Code(s): I16.0 - HYPERTENSIVE URGENCY Status: Acute (9) Elevated lactic acid level Code(s): R79.89 - OTHER SPECIFIED ABNORMAL FINDINGS OF BLOOD CHEMISTRY Status : Acute (10) BOO (acute kidney injury) Code(s): N17.9 - ACUTE KIDNEY FAILURE, UNSPECIFIED Status: Acute <Saskia Celeste - Last Filed: 01/30/18 17:58> Attending Addendum - Attending Addendum Date/Time: 01/30/18 8838 I personally evaluated the patient and discussed the management with Dr. Zelaya and Dr. Easton I agree with the History, Examination, Assessment and Plan documented above with any addition or exceptions noted below. 73 yo female with Hep C/alcholic cirhosis admitted for hepatic encephalopathy Continues to slowly improve. GI is following. Currently concerned for hepatorenal syndrome but appears to be BOO on CKD. MELD score stable. Unable to adequately evaluate renal functions due to limitations in cirhosis. Could consider renal sono with doppler to evaluate RBF. Montior anemia closely D/c florencia Rivera <Saskia Celeste - Last Filed: 01/30/18 17:58>
[2018-01-30] MEDS: Rifaximin 550 MG TAB PO SCH ×2 (09:23→20:36)
[2018-01-30] MEDS: Potassium Chloride 20 MEQ TAB PO SCH ×2 (09:23→18:38)
[2018-01-30] MEDS: Atorvastatin Calcium 20 MG TAB PO SCH (09:23)
[2018-01-30] MEDS: Simethicone Chewable 80 MG TAB PO SCH ×4 (09:26→20:36)
[2018-01-30] MEDS: Carvedilol 3.125 MG TAB PO SCH ×2 (09:29→18:40)
--- NOTE | 2018-01-30 11:39 | PRG ---
DATE OF SERVICE: 01/30/2018 SUBJECTIVE: A 73-year-old gentleman being seen for acute kidney injury. The patient denies any naus ea, vomiting or chest pain. PHYSICAL EXAMINATION: GENERAL: The patient awake, alert. VITAL SIGNS: Afebrile, pulse 50, breathing 16, blood pressure 130/62. OBJECTIVE: See above. Awake, alert, in no acute distress. GENERAL APPEARANCE AND MENTAL STATUS: Fair. HEAD/NECK: Normocephalic. Atraumatic. EYES: EOMI. No deformity. EARS: Clear. No ulcers. NOSE: Intact. No lesions. MOUTH: Clear. No discharge. THROAT: Clear. No exudate. LUNGS: Clear. No crackles. CARDIAC: S1, S2. No rub. ABDOMEN: Benign. BS+. GENITALIA/RECTUM: Simeon absent. BACK/EXTREMITIES: Edema 0+ Ulcer- NEUROLOGICAL: Alert and motor intact. SKIN: Rash- Bruise- LYMPHATICS: Edema- Ulcer- LABORATORY: Hemoglobin 7.6, creatinine 1.7. RECOMMENDATIONS: 1. Acute kidney injury with chronic kidney disease stage 3, stable. 2. Hypertension, stable. 3. Anemia, stable. 4. Metabolic acidosis, stable. 5. Hyponatremia, stable. 6. Hypokalemia, improved. 7. Anemia. I would recommend starting Epogen 10,000 units every 2 weeks. The patient needs to follow up with Hematology.
--- NOTE | 2018-01-30 19:44 | PRG ---
DATE OF SERVICE: 01/30/2018 REASON FOR CONSULTATION: Cirrhosis of the liver, possible hepatorenal syndrome. SUBJECTIVE: The patient states that he is doing well this morning with no acute events or problems o vernight. Per nursing staff and per patient, he has not had any episodes of hematemesis, melena or h ematochezia. Currently, denies any nausea, vomiting, fevers, chills, abdominal pain, odynophagia, dy sphagia or constipation. OBJECTIVE: VITAL SIGNS: Temperature 98.2, pulse 55, blood pressure 152/54, respiratory rate 16, satting 98% on room air. GENERAL: Lying in bed comfortably, in no acute distress. CARDIOVASCULAR: Regular rate and rhythm. RESPIRATORY: Clear to auscultation bilaterally. ABDOMEN: Normoactive bowel sounds, soft, nontender. Mild to moderate abdominal distention (improved from previous). EXTREMITIES: No cyanosis, clubbing or edema. LABORATORY DATA: CBC with a white blood cell count of 7.2, hemoglobin 7.6, hematocrit 21.7, platelet s 62. Chemistry: Sodium 134, potassium 4, chloride 112, CO2 19, BUN 32, creatinine 1.77, glucose 10 3, AST 18, ALT 8, alkaline phosphatase 68, total bilirubin 1.4, albumin 2.7. INR 2.2. IMAGING DATA: No current GI imaging is available for review. ASSESSMENT AND PLAN: The patient is a 73-year-old male with past medical history of coronary artery disease, hypertension, hypothyroidism, osteoarthritis, polysubstance abuse, chronic hepatitis C infec tion, and cirrhosis complicated by hepatic encephalopathy and ascites, initially presenting with alte red mental status (now resolved) abdominal distention (resolving) and acute on chronic renal insuffic iency. Cirrhosis. The patient presented with a prior history of cirrhosis, but the most likely etiology dl ng either alcohol abuse or chronic hepatitis C infection. On admission, he was noted to have a moder ately elevated creatinine in addition to liver dysfunction concerning for hepatorenal syndrome; howev er, with elevated BUN, there was felt to be a possible prerenal azotemia that did respond with infusi on of IV fluids, discontinuation of diuretics and albumin administration. He was also noted to have a decrease in his H&H during this admission, but I think this may have been more due to hemoconcentra tion initially and upon adequate hydration dropped to more of his baseline H&H (however, baseline H&H is unable to be elucidated due to lack of records from [place]). At this time given the lack of hemate mesis, melena or hematochezia with too needed drop within 24 hours, likelihood of GI bleed is very un likely. Given his improvement in renal status with the IV fluids, discontinuation of diuretics and a lbumin administration, hepatorenal syndrome is unlikely. Currently, with a stable MELD score of appr oximately 24/25, indicating severe liver dysfunction. RECOMMENDATIONS: 1. We would continue to trend INR and LFTs daily for determination of MELD score and possibly worsen ing liver function while inpatient. 2. Can discontinue administration of albumin with hepatorenal syndrome no longer strong on the diffe rential list. 3. Encourage intake of free water and advance the patient's diet. 4. Continue to trend H&H while inpatient, although this may be his baseline. Hepatic encephalopathy. The patient presented with acute altered mental status concerning for worsen ing of his hepatic encephalopathy. He was given approximately 90 mL of lactulose per day within the first 24-48 hours with a significant number of bowel movements; however, with decrease in his lactulo se to 15 mL twice daily, his sensorium has returned to baseline as well as having approximately 3-4 s emisolid bowel movements per day. RECOMMENDATIONS: 1. Continue dosing of lactulose at 15 mL twice daily and titrate to goal of 3-4 bowel movements meenu y. 2. Continue to monitor clinically for worsening of mental status. From a GI standpoint, this patient can be discharged to home with close follow up by his outpatient ematologist in [place] given improvement in his renal function stable MELD score and lack of gastrointes tinal bleeding. We will sign off at this time. Please call with any additional questions.
--- NOTE | 2018-01-30 23:05 | ULT ---
LEFT UPPER EXTREMITY VENOUS ULTRASOUND: 01/30/18 COMPARISON: None. HISTORY: Swelling and warmth to the left upper extremity. Edema in the left arm after recent IV removal. TECHNIQUE: Multiplanar le scale and color doppler images were obtained in a left upper extremity venous ultras ound. Spectral analysis of the doppler waveforms were performed. FINDINGS: The left internal jugular vein demonstrates normal compression and flow without evidence of thrombus. The left subclavian vein demonstrates normal flow and augmentation without evidence of thrombus. The left brachial and axillary veins demonstrate normal compression, flow and augmentation without evide nce of thrombus. Basilic and cephalic veins are patent. The venous structures distal to the elbow shows no evidence of thrombus. In the mid left upper arm at the area of concern there is a large heterogeneous mass with central low echogenicity measuring 9.3 x 4.5 cm in size. This is nonspecific and could represent a mass, a hemat gabe, or an abscess. Correlate with physical exam. IMPRESSION: 1. No evidence of left upper extremity DVT. 2. Heterogeneous mass-like area in the left arm as above. POS: JUVE
[2018-01-30] MEDS ORDERED: Acetaminophen 500 MG TAB PO PRN (23:12)
[2018-01-31 04:57] LABS: #Eosinphils 0.7 thou/uL (0.0-0.7); #Lymphocytes 1.5 thou/uL (1.20-3.40); #Monocytes 0.7 thou/uL (0.11-0.59); %Basophils 0.1 % (0.0-1.0); %Eosinophils 5.6 % (0.0-10.0); %Lymphocytes 12.5 % (21.0-51.0); %Monocytes 5.8 % (0.0-10.0); Hemoglobin 6.7 g/dL (14.0-18.0); Mean Corpuscular HGB CONC 34.4 g/dL (32.0-36.0); Mean Corpuscular Hemoglobin 30.8 pg (27.0-31.0); Mean Corpuscular Volume 89.5 fl (80.0-94.0); Mean Platelet Volume 9.4 fL (7.4-10.4); Platelet Count 85 thou/uL (130-400); RBC Distribution Width 15.2 % (11.5-14.5); Red Blood Cell (RBC) Count 2.17 mill/uL (4.70-6.10); White Blood Cell (WBC) Count 11.9 thou/uL (4.8-10.8)
[2018-01-31 05:00] LABS: INR-International Normal Ratio 2.1
[2018-01-31 05:07] LABS: ALT (SGPT) 7 U/L (8-55); AST (SGOT) 17 U/L (5-34); Albumin 2.8 g/dL (3.4-4.8); Alkaline Phosphatase 67 U/L (40-150); Anion Gap 7 mmol/L (10-20); BUN (Urea Nitrogen) 39 mg/dL (8.4-25.7); Bilirubin, Total 1.8 mg/dL (0.2-1.2); Calc. Creatinine Clearance 41 mL/min (70-130); Calcium 8.2 mg/dL (7.8-10.44); Carbon Dioxide 20 mmol/L (23-31); Chloride 115 mmol/L (98-107); Estimated GFR-MDRD 35; Globulin 2.6 g/dL (2.4-3.5); Glucose 132 mg/dL (83-110); Potassium 4.7 mmol/L (3.5-5.1); Protein, Total 5.4 g/dL (5.8-8.1); Sodium 137 mmol/L (136-145)
[2018-01-31] MEDS: Levothyroxine Sodium 125 MCG TAB PO SCH (05:32)
[2018-01-31] MEDS: Potassium Chloride 20 MEQ TAB PO SCH (09:13)
[2018-01-31] MEDS: Simethicone Chewable 80 MG TAB PO SCH ×4 (09:13→19:47)
[2018-01-31] MEDS: Rifaximin 550 MG TAB PO SCH ×2 (09:13→19:47)
[2018-01-31] MEDS: Carvedilol 3.125 MG TAB PO SCH ×2 (09:13→17:23)
[2018-01-31] MEDS: Atorvastatin Calcium 20 MG TAB PO SCH (09:13)
--- NOTE | 2018-01-31 09:32 | PDOC.FM ---
- Subjective Subjective: 73 M here for acute hepatic encephalopathy. Pt doing well this morning, remains A&O x4. He denies belly pain, n/v, fever. He complains of blood from the left arm midline site. This was noted to be red yesterday and dc'd. US ordered yesterday found possible abscess at that site. - Objective MAR Reviewed: Yes Vital Signs & Weight: Vital Signs (12 hours) Temp Pulse Resp BP Pulse Ox 01/31/18 07:08 97.8 F 57 L 16 161/69 H 100 Weight Admit Weight 82.01 kg Weight 82.01 kg I&O: 01/30/18 01/31/18 02/01/18 06:59 06:59 06:59 Intake Total 2275 250 Output Total 670 600 Balance 1605 -350 Result Diagrams: 01/31/18 04:02 01/31/18 04:02 <Alex Zelaya - Last Filed: 01/31/18 09:30> - Objective Vital Signs & Weight: Vital Signs (12 hours) Temp Pulse Pulse Resp BP BP Pulse Ox 01/31/18 13:20 98.0 F 58 L 20 151/69 H 99 01/31/18 13:00 98.0 F 62 18 143/67 H 99 01/31/18 11:15 98.2 F 60 16 121/53 L 99 01/31/18 08:00 97.8 F 57 L 16 100 01/31/18 07:08 97.8 F 57 L 16 161/69 H 100 Weight Admit Weight 82.01 kg Weight 82.01 kg I&O: 01/30/18 01/31/18 02/01/18 06:59 06:59 06:59 Intake Total 2275 250 0 Output Total 670 600 Balance 1605 -350 0 Result Diagrams: 01/31/18 04:02 01/31/18 04:02 <Saskia Celeste - Last Filed: 01/31/18 15:24> Phys Exam - Physical Examination Constitutional: NAD HEENT: PERRLA, moist MMs, sclera anicteric Neck: supple, full ROM Respiratory: clear to auscultation bilateral Cardiovascular: RRR, no significant murmur Gastrointestinal: soft, non-tender, positive bowel sounds Distended w/fluid wave. Unchanged from previous exam Musculoskeletal: no edema Neurological: non-focal, normal sensation, moves all 4 limbs Psychiatric: normal affect, A&O x 3 Skin: no rash <Alex Zelaya - Last Filed: 01/31/18 09:30> Dx/Plan (1) BOO (acute kidney injury) Code(s): N17.9 - ACUTE KIDNEY FAILURE, UNSPECIFIED Status: Acute (2) Acute hepatic encephalopathy Code(s): K72.00 - ACUTE AND SUBACUTE HEPATIC FAILURE WITHOUT COMA Status: Acute (3) Alcohol abuse Code(s): F10.10 - ALCOHOL ABUSE, UNCOMPLICATED Status: Chronic (4) Hyperchloremia Code(s): E87.8 - OTH DISORDERS OF ELECTROLYTE AND FLUID BALANCE, NEC Status: Resolved (5) Hypernatremia Code(s): E87.0 - HYPEROSMOLALITY AND HYPERNATREMIA Status: Resolved (6) Hypertension Code(s): I10 - ESSENTIAL (PRIMARY) HYPERTENSION Status: Chronic (7) Hepatitis C Code(s): B19.20 - UNSPECIFIED VIRAL HEPATITIS C WITHOUT HEPATIC COMA Status: Chronic (8) Liver disease, chronic, with cirrhosis Code(s): K74.60 - UNSPECIFIED CIRRHOSIS OF LIVER; K76.9 - LIVER DISEASE, UNSPECIFIED Status: Chronic (9) Coronary artery disease Code(s): I25.10 - ATHSCL HEART DISEASE OF [place] CORONARY ARTERY W/O ANG PCTRS Status: Acute (10) Elevated lactic acid level Code(s): R79.89 - OTHER SPECIFIED ABNORMAL FINDINGS OF BLOOD CHEMISTRY Status : Acute (11) Hypothyroidism Code(s): E03.9 - HYPOTHYROIDISM, UNSPECIFIED Status: Acute (12) Hypertensive urgency Code(s): I16.0 - HYPERTENSIVE URGENCY Status: Acute (13) Anemia Code(s): D64.9 - ANEMIA, UNSPECIFIED Status: Chronic QualifierTitle: Anemia type: due to chronic kidney disease - Plan Plan: Acute Hepatic Encephalopathy - Clinically improving day over day, pt no longer encephalopathic. Appears to be stable. MELD score improved to 23 - Patient with hx of liver cirrhosis 2/2 Hep C and Alcohol abuse. - Continue Lactulose 10 mg BID per GI recommendation - Consulted Nephrology, Dr. Barragan, appreciate recs - Consulted GI, Dr. Maier, appreciate recs. Will continue to trend Daily INRs and Cr Suspected midline site infection - line has been dc'd - Blood cx pending - WBC count bumped to 11.9 - Consider surgical consult. US reads as hematoma vs abscess. BOO: - Cr worsened to 1.9 today - May be acute on chronic kidney injury. One Cr from lab report from [place] had Cr of 1.5. - Encourage PO fluids - We have records from cardiology and GI from [place], waiting for nephrology records from [place]. HTN: - Improved pressure the past 24 hours. Pt is on spironolactone at home, this likely makes up the difference in lack of control. - Coreg was increased to 6.25, however his HR dropped to the 50s therefore it was changed back to 3.125 mg. When aldactone is restarted, he should have better control. Anemia, likely related to chronic disease - Dropped again over night. Will transfuse 1 U PRBC - epogen recommended by nephro. Hypernatremia - Resolved. As above Hyperchloremia - continues to improve. - likely 2/2 dehydration - IVF and continue to monitor Cirrhosis 2/2 Hep C and Alcohol Abuse - followed closely by gastroenterology in [place]. Had to have multiple paracentesis done in november 2017 due to significant ascites and had about 8L drained. - Continued mild ascites this morning, non tender abdomen. Continue to monitor with IVF. Thrombocytopenia - 2/2 Cirrhosis Hyperbilirubinemia - 2/2 Cirrhosis Hypoalbuminemia - 2/2 Cirrhosis Methamphetamine use - licensed mental health counselor on cessation Hypothyroidism - TSH wnl. Cont home synthroid. Elevated lactic acid - resolved <Alex Zelaya - Last Filed: 01/31/18 09:30> (1) Acute hepatic encephalopathy Code(s): K72.00 - ACUTE AND SUBACUTE HEPATIC FAILURE WITHOUT COMA Status: Acute (2) Liver disease, chronic, with cirrhosis Code(s): K74.60 - UNSPECIFIED CIRRHOSIS OF LIVER; K76.9 - LIVER DISEASE, UNSPECIFIED Status: Chronic (3) Hepatitis C Code(s): B19.20 - UNSPECIFIED VIRAL HEPATITIS C WITHOUT HEPATIC COMA Status: Chronic (4) Alcohol abuse Code(s): F10.10 - ALCOHOL ABUSE, UNCOMPLICATED Status: Chronic (5) Coronary artery disease Code(s): I25.10 - ATHSCL HEART DISEASE OF [place] CORONARY ARTERY W/O ANG PCTRS Status: Acute (6) Hypothyroidism Code(s): E03.9 - HYPOTHYROIDISM, UNSPECIFIED Status: Acute (7) Hypertension Code(s): I10 - ESSENTIAL (PRIMARY) HYPERTENSION Status: Chronic (8) Hypertensive urgency Code(s): I16.0 - HYPERTENSIVE URGENCY Status: Acute (9) Elevated lactic acid level Code(s): R79.89 - OTHER SPECIFIED ABNORMAL FINDINGS OF BLOOD CHEMISTRY Status : Acute (10) BOO (acute kidney injury) Code(s): N17.9 - ACUTE KIDNEY FAILURE, UNSPECIFIED Status: Acute <Saskia Celeste - Last Filed: 01/31/18 15:24> Attending Addendum - Attending Addendum Date/Time: 01/31/18 9711 I personally evaluated the patient and discussed the management with Dr. Zelaya and Dr. Easton I agree with the History, Examination, Assessment and Plan documented above with any addition or exceptions noted below. 73 yo female with Hep C/alcoholic cirrhosis admitted for hepatic encephalopathy Continues to improve. Was noted to be stable for d/c by GI. However IV line removed last night and now appears to have large hematoma in area. Drop in H&H noted. INR elevated. Platelets low. Patient will significant bleeding risk. Will repeat sono to see if expanding. Will repeat exams on routine bases to evaluate for worsening presentation. Will contact surg as needed. Give blood products as needed based on labs and symptoms. Nicole <Saskia Celeste - Last Filed: 01/31/18 15:24>
--- NOTE | 2018-01-31 10:39 | PRG ---
DATE OF SERVICE: 01/31/2018 SUBJECTIVE: A 73-year-old gentleman being seen for acute kidney injury. The patient denies any naus ea, vomiting, or chest pain. PHYSICAL EXAMINATION: GENERAL: Patient is awake, alert. VITAL SIGNS: Afebrile, pulse 61, breathing 16, blood pressure 137/61. HEAD/NECK: Normocephalic. Atraumatic. EYES: EOMI. No deformity. EARS: Clear. No ulcers. NOSE: Intact. No lesions. MOUTH: Clear. No discharge. THROAT: Clear. No exudate. LUNGS: Clear. No crackles. CARDIAC: S1, S2. No rub. ABDOMEN: Benign. BS+. GENITALIA/RECTUM: Simeon absent. BACK/EXTREMITIES: Edema 0+ Ulcer- NEUROLOGICAL: Alert and motor intact. SKIN: Rash- Bruise- LYMPHATICS: Edema- Ulcer- LABORATORY DATA: Show hemoglobin 6.7, creatinine 1.9. ASSESSMENT AND RECOMMENDATIONS: 1. Acute kidney injury with chronic kidney disease, mild increase in creatinine and metabolic acidos is, stable. 2. Anemia. Would recommend 2 units of packed red blood cell transfusion and would recommend Epogen. I have stopped the potassium supplementation as potassium is trending upward.
--- NOTE | 2018-01-31 15:18 | ULT ---
ULTRASOUND LEFT UPPER EXTREMITY: 01/31/2018 HISTORY: A 73-year-old male with left arm mass. FINDINGS: There is an approximately 9.5 x 6 x 3 cm solid-appearing mass with heterogeneously decreased echogeni city compared to surrounding tissues, in the left arm. One of the color Doppler images demonstrates what appears to be a small amount of blood flow centrally within the mass, but when queried, the sono grapher, Lizette, was not sure whether this was real or artifact (the patient kept flinching during t he scan). The mass is wider than tall and does not produce acoustic shadowing. If this mass is new, having appeared in the last couple days, then it would be a hematoma. If that is uncertain, then th is could be a neoplasm. IMPRESSION: 1. Nonspecific large, 9.5 cm, solid mass in the soft tissues of the left arm. 2. Recommend serial follow-up imaging, beginning in one month, with ultrasound. If this has not dec reased in size significantly by that time, further evaluation with MRI (preferably with and without i ntravenous contrast) should be considered. POS: UJVE
[2018-01-31] MEDS: Clindamycin 150 MG CAP PO SCH (20:42)
[2018-02-01] MEDS: Clindamycin 150 MG CAP PO SCH ×4 (02:48→22:16)
[2018-02-01] MEDS: Levothyroxine Sodium 125 MCG TAB PO SCH (02:48)
[2018-02-01 05:38] LABS: INR-International Normal Ratio 1.9; Prothrombin Time 22.3 SEC (12.0-14.7)
[2018-02-01 05:54] LABS: ALT (SGPT) 8 U/L (8-55); AST (SGOT) 19 U/L (5-34); Alkaline Phosphatase 64 U/L (40-150); Anion Gap 9 mmol/L (10-20); BUN (Urea Nitrogen) 34 mg/dL (8.4-25.7); Bilirubin, Total 2.3 mg/dL (0.2-1.2); Calc. Creatinine Clearance 50 mL/min (70-130); Calcium 8.3 mg/dL (7.8-10.44); Carbon Dioxide 16 mmol/L (23-31); Chloride 117 mmol/L (98-107); Estimated GFR-MDRD 44; Globulin 2.6 g/dL (2.4-3.5); Glucose 100 mg/dL (83-110); Potassium 4.8 mmol/L (3.5-5.1); Protein, Total 5.6 g/dL (5.8-8.1); Sodium 137 mmol/L (136-145)
[2018-02-01 06:28] LABS: #Eosinphils 0.6 thou/uL (0.0-0.7); #Lymphocytes 1.7 thou/uL (1.20-3.40); #Monocytes 0.7 thou/uL (0.11-0.59); #Neutrophils 6.2 thou/uL (1.40-6.50); %Basophils 0.4 % (0.0-1.0); %Eosinophils 6.7 % (0.0-10.0); %Lymphocytes 17.9 % (21.0-51.0); Hemoglobin 7.7 g/dL (14.0-18.0); Mean Corpuscular HGB CONC 34.3 g/dL (32.0-36.0); Mean Corpuscular Hemoglobin 30.3 pg (27.0-31.0); Mean Corpuscular Volume 88.4 fl (80.0-94.0); Mean Platelet Volume 9.3 fL (7.4-10.4); Platelet Count 61 thou/uL (130-400); RBC Distribution Width 15.2 % (11.5-14.5); Red Blood Cell (RBC) Count 2.53 mill/uL (4.70-6.10); White Blood Cell (WBC) Count 9.2 thou/uL (4.8-10.8)
[2018-02-01] MEDS: Rifaximin 550 MG TAB PO SCH ×2 (08:47→21:16)
[2018-02-01] MEDS: Atorvastatin Calcium 20 MG TAB PO SCH (08:47)
[2018-02-01] MEDS: Simethicone Chewable 80 MG TAB PO SCH ×4 (08:49→22:16)
[2018-02-01] MEDS: hydrALAZINE 20 MG/ML VIAL SLOW IVP PRN (08:56)
[2018-02-01] MEDS: Carvedilol 3.125 MG TAB PO SCH ×2 (09:19→16:02)
--- NOTE | 2018-02-01 09:26 | PDOC.FM ---
- Subjective Subjective: 73 M here for acute hepatic encephalopathy. Pt doing well this morning, remains A&O x4. He denies belly pain, n/v, fever. Yesterday a significant hematoma was noted after removal of midline IV. Pt states pain and swelling are still present , but improved. Today pt has no new complaints. There were no acute events over night. - Objective MAR Reviewed: Yes Vital Signs & Weight: Vital Signs (12 hours) Temp Pulse Resp BP BP Pulse Ox 02/01/18 08:56 67 187/79 H 02/01/18 08:00 98.5 F 65 22 H 186/70 H 98 Weight Admit Weight 82.01 kg Weight 82.01 kg I&O: 01/31/18 02/01/18 02/02/18 06:59 06:59 06:59 Intake Total 250 1100 Output Total 600 550 Balance -350 550 Result Diagrams: 02/01/18 05:18 02/01/18 05:23 <Alex Zelaya - Last Filed: 02/01/18 09:25> - Objective Vital Signs & Weight: Vital Signs (12 hours) Temp Pulse Resp BP BP Pulse Ox 02/02/18 07:33 99 F 78 20 158/44 H 100 02/02/18 04:00 99.3 F 71 20 97 02/02/18 00:00 98.7 F 71 18 164/57 H 97 Weight Admit Weight 82.01 kg Weight 78.67 kg I&O: 02/01/18 02/02/18 02/03/18 06:59 06:59 06:59 Intake Total 1100 514 Output Total 550 525 Balance 550 -11 Result Diagrams: 02/02/18 05:23 02/02/18 05:23 <Saskia Celeste - Last Filed: 02/02/18 08:32> Phys Exam - Physical Examination Constitutional: NAD HEENT: moist MMs, sclera anicteric Neck: supple, full ROM Respiratory: clear to auscultation bilateral Cardiovascular: RRR, no significant murmur Gastrointestinal: soft, non-tender, positive bowel sounds Distention is present, but improving Musculoskeletal: no edema L arm w/o stretch pain. Normal sensation. neurovascularly intact Neurological: non-focal, moves all 4 limbs Psychiatric: normal affect, A&O x 3 Skin: no rash, normal turgor Deviation from normal: Significant area of bruising over medial left upper arm. Edema improved <Alex Zelaya - Last Filed: 02/01/18 09:25> Dx/Plan (1) Hematoma of arm Status: Acute QualifierTitle: Laterality: left (2) BOO (acute kidney injury) Code(s): N17.9 - ACUTE KIDNEY FAILURE, UNSPECIFIED Status: Acute (3) Acute hepatic encephalopathy Code(s): K72.00 - ACUTE AND SUBACUTE HEPATIC FAILURE WITHOUT COMA Status: Acute (4) Alcohol abuse Code(s): F10.10 - ALCOHOL ABUSE, UNCOMPLICATED Status: Chronic (5) Hyperchloremia Code(s): E87.8 - OTH DISORDERS OF ELECTROLYTE AND FLUID BALANCE, NEC Status: Resolved (6) Hypernatremia Code(s): E87.0 - HYPEROSMOLALITY AND HYPERNATREMIA Status: Resolved (7) Hypertension Code(s): I10 - ESSENTIAL (PRIMARY) HYPERTENSION Status: Chronic (8) Hepatitis C Code(s): B19.20 - UNSPECIFIED VIRAL HEPATITIS C WITHOUT HEPATIC COMA Status: Chronic (9) Liver disease, chronic, with cirrhosis Code(s): K74.60 - UNSPECIFIED CIRRHOSIS OF LIVER; K76.9 - LIVER DISEASE, UNSPECIFIED Status: Chronic (10) Coronary artery disease Code(s): I25.10 - ATHSCL HEART DISEASE OF [place] CORONARY ARTERY W/O ANG PCTRS Status: Acute (11) Elevated lactic acid level Code(s): R79.89 - OTHER SPECIFIED ABNORMAL FINDINGS OF BLOOD CHEMISTRY Status : Acute (12) Hypothyroidism Code(s): E03.9 - HYPOTHYROIDISM, UNSPECIFIED Status: Acute (13) Hypertensive urgency Code(s): I16.0 - HYPERTENSIVE URGENCY Status: Acute (14) Anemia Code(s): D64.9 - ANEMIA, UNSPECIFIED Status: Chronic QualifierTitle: Anemia type: due to chronic kidney disease - Plan Plan: Hematoma L UE - Likely 2/2 to bleeding post dc of midline - There was concern for compartment syndrome yesterday. Ortho has been consulted and is following. No plan for surgery at this time - There was initial concern for infection. Blood cx pending. - WBC count improved 9.2 - MRI read pending Acute Hepatic Encephalopathy - Stable. MELD score improved to 21 - Patient with hx of liver cirrhosis 2/2 Hep C and Alcohol abuse. - Continue Lactulose 10 mg BID per GI recommendation - Consulted Nephrology, Dr. Barragan, appreciate recs - Consulted GI, Dr. Maier, appreciate recs. Will continue to trend Daily INRs and Cr BOO: - Cr improved to 1.56 - May be acute on chronic kidney injury. One Cr from lab report from [place] had Cr of 1.5. - Encourage PO fluids HTN: - Elevated, but stable pressure. Pt is on spironolactone at home, this likely makes up the difference in lack of control. Anemia, likely related to chronic disease -s/p 2 U PRBC. Hb increased to 7.7. This is not as much of an improvement as expected, this is likely dt to blood loss into arm - Monitor cbc in am - epogen recommended by nephro. Hypernatremia - Resolved. As above Hyperchloremia - Encourage PO water as this continues to rise. Dt to elevated INR I want to avoid starting another line if possible. Cirrhosis 2/2 Hep C and Alcohol Abuse - followed closely by gastroenterology in [place]. Had to have multiple paracentesis done in november 2017 due to significant ascites and had about 8L drained. - Continued mild ascites this morning, non tender abdomen. Continue to monitor with IVF. 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 Cont home synthroid. Elevated lactic acid - resolved Dispo: PT is stable, and improving. Continue to monitor progress. <Alex Zelaya - Last Filed: 02/01/18 09:25> (1) Acute hepatic encephalopathy Code(s): K72.00 - ACUTE AND SUBACUTE HEPATIC FAILURE WITHOUT COMA Status: Acute (2) Liver disease, chronic, with cirrhosis Code(s): K74.60 - UNSPECIFIED CIRRHOSIS OF LIVER; K76.9 - LIVER DISEASE, UNSPECIFIED Status: Chronic (3) Hepatitis C Code(s): B19.20 - UNSPECIFIED VIRAL HEPATITIS C WITHOUT HEPATIC COMA Status: Chronic (4) Alcohol abuse Code(s): F10.10 - ALCOHOL ABUSE, UNCOMPLICATED Status: Chronic (5) Coronary artery disease Code(s): I25.10 - ATHSCL HEART DISEASE OF [place] CORONARY ARTERY W/O ANG PCTRS Status: Acute (6) Hypothyroidism Code(s): E03.9 - HYPOTHYROIDISM, UNSPECIFIED Status: Acute (7) Hypertension Code(s): I10 - ESSENTIAL (PRIMARY) HYPERTENSION Status: Chronic (8) Hypertensive urgency Code(s): I16.0 - HYPERTENSIVE URGENCY Status: Acute (9) Elevated lactic acid level Code(s): R79.89 - OTHER SPECIFIED ABNORMAL FINDINGS OF BLOOD CHEMISTRY Status : Acute (10) BOO (acute kidney injury) Code(s): N17.9 - ACUTE KIDNEY FAILURE, UNSPECIFIED Status: Acute <Saskia Celeste - Last Filed: 02/02/18 08:32> Attending Addendum - Attending Addendum Date/Time: 02/02/18823 I personally evaluated the patient and discussed the management with Dr. Zelaya and Dr. Easton I agree with the History, Examination, Assessment and Plan documented above with any addition or exceptions noted below. 73 yo female with Hep C/alcoholic cirrhosis admitted for hepatic encephalopathy Reports SOB today. Increased work of breathing on exam along with crackles. CXR with pulm edema and mild effusion. Trop negative. No hypoxia. EKG no concerning ST changes. Old repolarization changes noted from admit and improved. No CP per patient. No IV access. Was to be restarted on Lasix and aldactone yesterday but not restarted til this AM. Ordered PO Lasix to be quickly given due to lack of IV access. Concern addressed of possible PE and CT ordered. CT held due to low suspecion but nurse not able to give PO before patient continued to decline. Arlen joyner called after rounds. Dr. Lake available to place Fem central line. IV lasix given. Patient transfered to [facility] for monitoring. Serial assessments by day team to be done. Restart lasix and aldactone. Monitor fluid status. Continue to monitor left arm. ABrayMD <Saskia Celeste - Last Filed: 02/02/18 08:32>
--- NOTE | 2018-02-01 09:45 | MRI ---
MRI LEFT ARM WITH AND WITHOUT CONTRAST: Date: 01/31/18 HISTORY: Abscess versus hematoma. Patient had a recent PICC line placed and then it was removed due to pain an d bruising. COMPARISON: None. FINDINGS: Along the medial margin of the biceps muscle is a 2.5 x 4.3 x approximately 20.0 cm mass with T1 sign al mildly hyperintense to muscle, as well as T2 signal mildly hyperintense to muscle in the medial as pect of the upper arm. This abuts the brachial neurovascular bundle. This does not extend deep to the investing fascia of the biceps muscle. No invasion of the soft tissues. There is extensive edema thr oughout the superficial and deep fascia, as well as the superficial soft tissues. There is fluid all the way around the deltoid. Third spacing of fluid is present. Underlying humerus is intact. No marrow signal abnormality. Muscles are mildly edematous, predominantly brachialis and biceps. IMPRESSION: Mildly heterogeneous mass conforming to the medial margin of the biceps muscle with focal concave mar gin at the abutment of the muscle without invasion through the circumferential investing fascia. Give n the history, and abutment of the brachial neurovascular bundle, this likely represents a large tano vince. Given there is extensive third spacing fluid, as well as mild edema within the brachialis and b rachial muscles, as well as deep fascial edema, infection is also a possibility, although at this qi e is felt less likely. Underlying myositis and fasciitis is also possible. At this point, hematoma is felt most likely, and continued follow-up is recommended. Malignancy is also possible, therefore fol low-up required, preferably with contrast. POS: OFF
[2018-02-01] MEDS ORDERED: Furosemide 20 MG/2 ML VIAL SLOW IVP SCH (10:00)
[2018-02-01] MEDS ORDERED: Morphine 5 MG/ML SYRINGE SLOW IVP PRN (10:03)
[2018-02-01 10:09] LABS: Troponin I 0.011 ng/mL (< 0.028)
--- NOTE | 2018-02-01 10:11 | PRG ---
DATE OF SERVICE: 02/01/2018 SUBJECTIVE: This is a 73-year-old gentleman being seen for acute kidney injury. The patient denies any nausea, vomiting, or chest pain. PHYSICAL EXAMINATION: GENERAL: The patient is awake and alert. VITAL SIGNS: Afebrile, pulse 85, breathing 16, blood pressure 160/70. OBJECTIVE: See above. Awake, alert, in no acute distress. GENERAL APPEARANCE AND MENTAL STATUS: Fair. HEAD/NECK: Normocephalic. Atraumatic. EYES: EOMI. No deformity. EARS: Clear. No ulcers. NOSE: Intact. No lesions. MOUTH: Clear. No discharge. THROAT: Clear. No exudate. LUNGS: Clear. No crackles. CARDIAC: S1, S2. No rub. ABDOMEN: Benign. BS+. GENITALIA/RECTUM: Simeon absent. BACK/EXTREMITIES: Edema 0+ Ulcer- NEUROLOGICAL: Alert and motor intact. SKIN: Rash- Bruise- LYMPHATICS: Edema- Ulcer- LABORATORY: Hemoglobin 7.7, creatinine 1.5. ASSESSMENT AND RECOMMENDATIONS: 1. Acute kidney injury with chronic kidney disease stage 4, stable. 2. Hypertension, stable. 3. Anemia, stable. 4. Metabolic acidosis, stable. Continue sodium bicarbonate. I will sign off on this patient. Please reconsult as needed.
[2018-02-01] MEDS ORDERED: Furosemide 40 MG TAB PO SCH (11:00)
[2018-02-01 11:21] LABS: pH, Arterial 7.45 (7.35-7.45)
[2018-02-01 11:22] LABS: Actual Bicarbonate (HCO3a) 14.8 mEq/L (22-26); Base Excess (BEa) -8.2 mEq/L (0 (+/-) 2.5); CO2 Tension 21.9 mmHg (35.0-45.0); Hematocrit-ABG 22.5 % (42.0-52.0); Hemoglobin (Hb) 7.7 g/dL (14.0-18.0); O2 Tension (PaO2) 113.9 mmHg (80.0-100.0)
[2018-02-01 11:23] LABS: ALV-art Gradient 58.365 (0-20); Puncture Site RRA
--- NOTE | 2018-02-01 11:23 | RAD ---
PORTABLE CHEST ONE VIEW: 02/01/2018 9:44 a.m. HISTORY: Shortness of breath. Chest pain. COMPARISON: 01/24/2018 FINDINGS: There is continued blunting of the right lateral costophrenic angle. Heart size is normal. No lobar consolidation is seen. No large effusions are identified. POS: [facility]
[2018-02-01] MEDS ORDERED: Furosemide 40 MG/4 ML VIAL ONE (11:27)
[2018-02-01] MEDS ORDERED: Spironolactone 25 MG TAB PO SCH (13:00)
--- NOTE | 2018-02-01 13:37 | RAD ---
FRONTAL RADIOGRAPH CHEST SUPINE: Date: 02-01-18 Time: 11:43 a.m. Comparison: 02-01-18 at 9:44 a.m. History: Shortness of breath, chest pain. FINDINGS: Supine imaging limits assessment for pneumothorax and pleural fluid. There is a right sided vascular catheter, distal tip overlying the expected location of the right atrium. There is nonspecific inters titial prominence bilaterally. Right costophrenic angle is incompletely imaged on this exam. IMPRESSION: New right sided vascular catheter as above. POS: [facility]
[2018-02-01] MEDS: Acetaminophen 500 MG TAB PO PRN (13:39)
--- NOTE | 2018-02-01 14:17 | CON ---
DATE OF CONSULTATION: 02/01/2018 The following encompassed 70 minutes time. Greater than 50% of the time was spent either with the pa tient or on the patient's unit. CONSULTING PHYSICIAN: [facility]. REASON FOR CONSULTATION: Shortness of breath, poor IV access. HISTORY OF PRESENT ILLNESS: The patient is a 73-year-old male who has been hospitalized at this [facility] since 01/24/2018. Information is obtained mainly from speaking with physicians involved, the nu rses involved, and reading consultations in the chart. His admitting diagnosis was acute hepatic enc ephalopathy from cirrhosis. He required a left upper extremity midline yesterday. This area bled an d he required evaluation by Dr. Cuellar who has applied a compression dressing. The patient apparen tly required transfusion of blood. Today, he has been more short of breath. The nurses were attempt ing to give Lasix, but had no IV access. I was called into a code green situation and had to place a central line. PAST MEDICAL HISTORY: 1. Cirrhosis secondary to hepatitis C and alcohol abuse. 2. Alcohol abuse. 3. Coronary artery disease. 4. Hypertension. 5. Hypothyroidism. 6. Substance abuse. 7. Arthritis of the neck. PAST SURGICAL HISTORY: 1. Cholecystectomy. 2. Ankle surgery. 3. Right orchiectomy. FAMILY HISTORY: Remarkable for heart disease. SOCIAL HISTORY: One pack a day smoker for 45 years, stopped drinking about 6 years ago, previously u sed multiple substances. MEDICATIONS: Prior to admission; atorvastatin 20 mg daily, carvedilol 3.125 mg b.i.d., Plavix 75 mg daily, Inspra 25 mg b.i.d., Lasix 40 mg b.i.d., Imdur ER 30 mg daily, lactulose 20 grams t.i.d., levo thyroxine 125 mcg daily, pantoprazole 40 mg daily, rifaximin 550 mg b.i.d., trazodone 150 mg nightly. REVIEW OF SYSTEMS: Review of systems cannot be obtained secondary to patient's encephalopathy. PHYSICAL EXAMINATION: VITAL SIGNS: Temperature 98.2, pulse 69, respirations 24, O2 sat 97% on 2 liters, blood pressure 147 /64. GENERAL: The patient was mainly agitated, he said he gets short of breath when he lays down. HEENT: Pupils react. Sclerae icteric. Oropharynx clear. NECK: No JVD. LUNGS: A few crackles in the bases, otherwise clear. CARDIAC: S1, S2 regular. ABDOMEN: Soft, obese, nontender. EXTREMITIES: He has a pressure dressing around his left upper arm with Kirt bandage. LABORATORY DATA: White blood cell count 9.2, hemoglobin 7.7, hematocrit 22.3, platelet count 61. IN R 1.9. PH 7.45, pCO2 21, PO2 113. Sodium 137, potassium 4.8, chloride 117, CO2 16, BUN 34, creatini ne 1.5, glucose 100. Chest x-ray showed fairly clear lung [place], some cephalization of flow, flattened diaphragms. Centr al line in good position. ASSESSMENT: 1. Dyspnea, probably secondary to some mild fluid overload. 2. Cirrhosis. PLAN: 1. Central line was placed. 2. Transferred to [facility] for closer nursing care. 3. IV diuretics. 4. I discussed with the resident at the bedside. I told them they could cancel CT angio as I doubt this is anything related to a pulmonary embolism.
--- NOTE | 2018-02-01 14:31 | OP ---
DATE OF OPERATION: 02/01/2018 PROCEDURE PERFORMED: Right subclavian central line placement. PREOPERATIVE DIAGNOSIS: No intravenous access, ongoing code green. POSTOPERATIVE DIAGNOSIS: Successful right subclavian central line placement. ANESTHESIA: 1% lidocaine without epinephrine. DESCRIPTION OF PROCEDURE: The procedure was done on an emergent basis. A code green has been called on the patient and nursing staff had attempted vigorously to get a peripheral IV and were unable to obtain access. Verbal consent was implied from the patient. He was placed in the Trendelenburg position. The right subclavian area was cleansed with chlorhexidine and draped sterilely. Using sterile technique, the insertion site was anesthetized with lidocaine. A triple lumen catheter was inserted in the right garcía bclavian vein via the modified Seldinger technique without difficulty. Three ports flushed venous bl ood. Chest x-ray confirmed placement. The procedure was tolerated well.
[2018-02-01] MEDS ORDERED: Furosemide 40 MG/4 ML VIAL SLOW IVP SCH (15:30)
--- NOTE | 2018-02-01 20:09 | PDOC.EVN ---
Event Note - Event Note Event Note: Paged by patient's nurse due appearance of patient's arm. Patient seen and examined at bedside by Dr. Stone and Dr. Toney at 1910 on 02/01 Patient did not complain of worsening arm pain. Left arm continued to have 2+ pitting edema and ecchymosis with desquamation of skin. Spoke to Dr. Zelaya, stated its consistent with appearance from earlier exam today. Rewrapped arm with non-stick telfa and coban. Consulted wound care as well. Will continue to monitor.
[2018-02-02] MEDS: Clindamycin 150 MG CAP PO SCH ×2 (03:38→09:01)
[2018-02-02] MEDS: Levothyroxine Sodium 125 MCG TAB PO SCH (05:52)
[2018-02-02 05:53] LABS: INR-International Normal Ratio 1.9; Prothrombin Time 22.1 SEC (12.0-14.7)
[2018-02-02] MEDS ORDERED: Furosemide 40 MG/4 ML VIAL SLOW IVP SCH (06:00)
[2018-02-02 06:02] LABS: ALT (SGPT) 8 U/L (8-55); AST (SGOT) 20 U/L (5-34); Albumin 3.1 g/dL (3.4-4.8); Alkaline Phosphatase 62 U/L (40-150); Anion Gap 9 mmol/L (10-20); BUN (Urea Nitrogen) 35 mg/dL (8.4-25.7); Bilirubin, Total 2.6 mg/dL (0.2-1.2); Calc. Creatinine Clearance 43 mL/min (70-130); Calcium 8.5 mg/dL (7.8-10.44); Carbon Dioxide 17 mmol/L (23-31); Chloride 112 mmol/L (98-107); Estimated GFR-MDRD 38; Globulin 2.9 g/dL (2.4-3.5); Glucose 104 mg/dL (83-110); Potassium 4.8 mmol/L (3.5-5.1); Sodium 133 mmol/L (136-145)
[2018-02-02 06:09] LABS: #Eosinphils 0.2 thou/uL (0.0-0.7); #Monocytes 1.1 thou/uL (0.11-0.59); %Basophils 0.2 % (0.0-1.0); %Eosinophils 1.2 % (0.0-10.0); %Lymphocytes 7.4 % (21.0-51.0); %Monocytes 8.3 % (0.0-10.0); %Neutrophils 82.9 % (42.0-75.0); Hemoglobin 7.2 g/dL (14.0-18.0); Mean Corpuscular HGB CONC 34.7 g/dL (32.0-36.0); Mean Corpuscular Hemoglobin 30.7 pg (27.0-31.0); Mean Corpuscular Volume 88.4 fl (80.0-94.0); Mean Platelet Volume 9.4 fL (7.4-10.4); Platelet Count 56 thou/uL (130-400); RBC Distribution Width 15.3 % (11.5-14.5); Red Blood Cell (RBC) Count 2.36 mill/uL (4.70-6.10); White Blood Cell (WBC) Count 13.3 thou/uL (4.8-10.8)
[2018-02-02] MEDS ORDERED: Spironolactone 25 MG TAB PO SCH (08:00)
--- NOTE | 2018-02-02 08:54 | PDOC.FM ---
- Subjective Subjective: 73 yo M here for acute hepatic encephalopathy 2/2 cirrhosis from etoh abuse and chronic Hep C. Yesterday pt became acutely dyspneic with chest pain. There was concern for fluid overload pt was given IV lasix and moved to [facility] for closer monitoring. He did not have iv access at the time and after multiple attempts at alternate sites, a R SC CVC was placed. The patient's SOB and CP resolved over the course of the rest of the day and was back to baseline over night. Pt had an episode of confusion over night which had not previously been a problem. During this episode, the pt pulled out his central line and began to drink urine from his bedside urinal per nursing. This morning pt is back to baseline mental status and does not remember last night's events. He complains only of left arm pain. - Objective MAR Reviewed: Yes Vital Signs & Weight: Vital Signs (12 hours) Temp Pulse Resp BP BP Pulse Ox 02/02/18 08:00 99 F 78 20 02/02/18 07:33 99 F 78 20 158/44 H 100 02/02/18 04:00 99.3 F 71 20 97 02/02/18 00:00 98.7 F 71 18 164/57 H 97 Weight Admit Weight 82.01 kg Weight 78.67 kg I&O: 02/01/18 02/02/18 02/03/18 06:59 06:59 06:59 Intake Total 1100 514 Output Total 550 525 Balance 550 -11 Result Diagrams: 02/02/18 05:23 02/02/18 05:23 <Alex Zelaya - Last Filed: 02/02/18 08:49> - Objective Vital Signs & Weight: Vital Signs (12 hours) Temp Pulse Pulse Pulse Pulse Resp BP 02/02/18 11:32 66 65 63 126/42 L 02/02/18 11:29 99.5 F 63 18 02/02/18 08:00 99 F 78 20 02/02/18 07:33 99 F 78 20 02/02/18 04:00 99.3 F 71 20 BP BP BP BP Pulse Ox 02/02/18 11:32 121/56 L 135/54 L 121/44 L 02/02/18 11:29 116/51 L 100 02/02/18 08:00 02/02/18 07:33 158/44 H 100 02/02/18 04:00 97 Weight Admit Weight 82.01 kg Weight 78.67 kg I&O: 02/01/18 02/02/18 02/03/18 06:59 06:59 06:59 Intake Total 1100 514 Output Total 550 525 Balance 550 -11 Result Diagrams: 02/02/18 05:23 02/02/18 05:23 <BookerSaskia - Last Filed: 02/02/18 16:09> Phys Exam - Physical Examination Constitutional: NAD HEENT: moist MMs, sclera anicteric Neck: supple, full ROM Respiratory: clear to auscultation bilateral Cardiovascular: RRR, no significant murmur Gastrointestinal: positive bowel sounds Stable ascites, non tender Pitting edema to elbow on L arm. No stretch pain. Neurovascularly intact Brusing over area of known hematoma on L upper arm Neurological: non-focal, normal sensation, moves all 4 limbs Lymphatic: no nodes Psychiatric: normal affect, A&O x 3 Skin: no rash <Alex Zelaya - Last Filed: 02/02/18 08:49> Dx/Plan (1) Hematoma of arm Status: Acute QualifierTitle: Laterality: left (2) BOO (acute kidney injury) Code(s): N17.9 - ACUTE KIDNEY FAILURE, UNSPECIFIED Status: Acute (3) Acute hepatic encephalopathy Code(s): K72.00 - ACUTE AND SUBACUTE HEPATIC FAILURE WITHOUT COMA Status: Acute (4) Alcohol abuse Code(s): F10.10 - ALCOHOL ABUSE, UNCOMPLICATED Status: Chronic (5) Hyperchloremia Code(s): E87.8 - OTH DISORDERS OF ELECTROLYTE AND FLUID BALANCE, NEC Status: Resolved (6) Hypernatremia Code(s): E87.0 - HYPEROSMOLALITY AND HYPERNATREMIA Status: Resolved (7) Hypertension Code(s): I10 - ESSENTIAL (PRIMARY) HYPERTENSION Status: Chronic (8) Hepatitis C Code(s): B19.20 - UNSPECIFIED VIRAL HEPATITIS C WITHOUT HEPATIC COMA Status: Chronic (9) Liver disease, chronic, with cirrhosis Code(s): K74.60 - UNSPECIFIED CIRRHOSIS OF LIVER; K76.9 - LIVER DISEASE, UNSPECIFIED Status: Chronic (10) Coronary artery disease Code(s): I25.10 - ATHSCL HEART DISEASE OF [place] CORONARY ARTERY W/O ANG PCTRS Status: Acute (11) Elevated lactic acid level Code(s): R79.89 - OTHER SPECIFIED ABNORMAL FINDINGS OF BLOOD CHEMISTRY Status : Acute (12) Hypothyroidism Code(s): E03.9 - HYPOTHYROIDISM, UNSPECIFIED Status: Acute (13) Hypertensive urgency Code(s): I16.0 - HYPERTENSIVE URGENCY Status: Acute (14) Anemia Code(s): D64.9 - ANEMIA, UNSPECIFIED Status: Chronic QualifierTitle: Anemia type: due to chronic kidney disease - Plan Plan: Hematoma L UE - Likely 2/2 to bleeding post dc of midline - There was concern for compartment syndrome yesterday. Ortho has been consulted and is following. No plan for surgery at this time, instead arm is wrapped in pressure bandage to help edema - There was initial concern for infection. Blood cx pending. - WBC bumped to 13.3 this morning. He is currently on Cl[place], if pt has fever will expand abx and redraw cx. Procal was indeterminate yesterday Acute Hepatic Encephalopathy - Stable, A&O x4. MELD score worsened to 25 - Patient with hx of liver cirrhosis 2/2 Hep C and Alcohol abuse. - Continue Lactulose 10 mg BID per GI recommendation - Consulted Nephrology, Dr. Barragan, appreciate recs - Consulted GI, Dr. Maier, appreciate recs. Will continue to trend Daily INRs and Cr BOO: - Cr worsened to 1.77 - May be acute on chronic kidney injury. One Cr from lab report from [place] had Cr of 1.5. - Encourage PO fluids HTN: - Elevated, but stable pressure. Pt is on spironolactone at home, this likely makes up the difference in lack of control. Anemia, likely related to chronic disease -s/p 2 U PRBC. Hb increased to 7.7. This is not as much of an improvement as expected, this is likely dt to blood loss into arm - Monitor cbc in am - epogen recommended by nephro. Hypernatremia - Resolved. As above Hyperchloremia - Encourage PO water as this continues to rise. Dt to elevated INR I want to avoid starting another line if possible. Cirrhosis 2/2 Hep C and Alcohol Abuse - followed closely by gastroenterology in [place]. Had to have multiple paracentesis done in november 2017 due to significant ascites and had about 8L drained. - Continued mild ascites this morning, non tender abdomen. - Pt appeared to be overloaded yesterday and lasix and spironolactone were restarted. Thrombocytopenia - 2/2 Cirrhosis Hyperbilirubinemia - 2/2 Cirrhosis Hypoalbuminemia - 2/2 Cirrhosis Methamphetamine use - skilled nursing facility counselor on cessation Hypothyroidism - TSH wnl. Cont home synthroid. Elevated lactic acid - resolved <Alex Zelaya - Last Filed: 02/02/18 08:49> (1) Acute hepatic encephalopathy Code(s): K72.00 - ACUTE AND SUBACUTE HEPATIC FAILURE WITHOUT COMA Status: Acute (2) Liver disease, chronic, with cirrhosis Code(s): K74.60 - UNSPECIFIED CIRRHOSIS OF LIVER; K76.9 - LIVER DISEASE, UNSPECIFIED Status: Chronic (3) Hepatitis C Code(s): B19.20 - UNSPECIFIED VIRAL HEPATITIS C WITHOUT HEPATIC COMA Status: Chronic (4) Alcohol abuse Code(s): F10.10 - ALCOHOL ABUSE, UNCOMPLICATED Status: Chronic (5) Coronary artery disease Code(s): I25.10 - ATHSCL HEART DISEASE OF [place] CORONARY ARTERY W/O ANG PCTRS Status: Acute (6) Hypothyroidism Code(s): E03.9 - HYPOTHYROIDISM, UNSPECIFIED Status: Acute (7) Hypertension Code(s): I10 - ESSENTIAL (PRIMARY) HYPERTENSION Status: Chronic (8) Hypertensive urgency Code(s): I16.0 - HYPERTENSIVE URGENCY Status: Acute (9) Elevated lactic acid level Code(s): R79.89 - OTHER SPECIFIED ABNORMAL FINDINGS OF BLOOD CHEMISTRY Status : Acute (10) BOO (acute kidney injury) Code(s): N17.9 - ACUTE KIDNEY FAILURE, UNSPECIFIED Status: Acute <Saskia Celeste - Last Filed: 02/02/18 16:09> Attending Addendum - Attending Addendum Date/Time: 02/02/18 [id number] I personally evaluated the patient and discussed the management with Dr. Zelaya and Dr. Easton I agree with the History, Examination, Assessment and Plan documented above with any addition or exceptions noted below. 73 yo female with Hep C/alcoholic cirrhosis admitted for hepatic encephalopathy (resolved) HD#9 Patient reports he is feeling much better than yesterday. No longer feeling SOB. Reports shaking chills since yesterday. Otherwise just reports feeling tired. Acute delirium last night. Patient drank his own urine thinking it was a regular drink and also pulled out his right subclavian line that was placed yesterday. Cirrhosis: MELD 25. Continue lactulose and xifaxin. Lasix to be adjusted to 60 mg BID in order to preserve some renal function. Continue to increase aldactone. GI signed off. Acites stable. Nontender abdomen. LUE hematoma: Compression bandage. Due to breakdown, will continue to increase Tbili which will worsen MELD. BOO on CKD: Stable at present. No evidence of HRS. Nephro signed off. Procalcitonin elevated with shaking chills and elevating temp (without fever). WBC increased overnight. Acute delirium last night and now resolved. Unsure if this is related to infection or inflammation due to large hematoma burden in patient's arm. Does not appear to have SBP. UA, blood cx, and procal trend today. CXR no evidence of consolidation yesterday. Bld cx negative from 01/24. Again does not have IV access. So will wait to confirm need for treatment prior to placing IV due to multiple complications. Monitor throughout the day. If no evidence of infection or overload will possibly be able to d/c. Nicole <Saskia Celeste - Last Filed: 02/02/18 16:09>
[2018-02-02] MEDS: Carvedilol 3.125 MG TAB PO SCH ×2 (09:00→15:59)
[2018-02-02] MEDS: Atorvastatin Calcium 20 MG TAB PO SCH (09:01)
[2018-02-02] MEDS: Furosemide 80 MG TAB PO SCH ×2 (09:01→15:58)
[2018-02-02] MEDS: Rifaximin 550 MG TAB PO SCH ×2 (09:02→20:27)
[2018-02-02] MEDS: Simethicone Chewable 80 MG TAB PO SCH ×4 (09:02→22:38)
[2018-02-02 14:53] VITALS: BMI 24.8
--- NOTE | 2018-02-02 16:18 | PRG ---
DATE OF SERVICE: 02/02/2018 SERVICE: Pulmonary Medicine INTERVAL HISTORY: The patient got a little excitable last night. He pulled out an IV. Apparently, he is drinking his own urine. He had hypoxic event which was short-lived. Ultimately, because of hi s encephalopathy that came on, he was transitioned down to the [facility] for closer observation. He denie s any current fevers, chills, nausea, vomiting, shortness of breath or chest discomfort. He has neck pain, but he mentions that this is a chronic thing. He is a little sleepy, but he is waking up and is taking his medications. PHYSICAL EXAMINATION: VITAL SIGNS: Afebrile with a T-max of 99.5. Pulse 63, blood pressure 126/42, respirations 18, satur ation 100% on room air. GENERAL: The patient is somnolent. He remains encephalopathic. HEENT: Normocephalic, atraumatic. Sclerae are white, conjunctivae pink. Oral mucosa is moist witho ut lesions. LUNGS: Decent air entry. There is no prolonged expiratory phase. Rhonchi are present. No crackles or wheezing. HEART: Normal rate, regular. ABDOMEN: Soft, nontender, nondistended. Bowel sounds are positive. MUSCULOSKELETAL: No cyanosis or clubbing. There is no pitting in the bilateral lower extremities. NEUROLOGIC: Grossly nonfocal. LABORATORY DATA: WBC 13.3, hemoglobin 7.2, and roughly stable. Platelets 56,000 and roughly stable. INR 1.9. PH 7.45, pCO2 21, PO2 113. Creatinine up trending to 1.77. BUN 35. Basic metabolic pro file is otherwise unremarkable. AST and ALT are normal. Total bilirubin is up trending to 2.6. Amm onia 48, procalcitonin 1.44. Methamphetamine and amphetamines are both positive on urine drug screen . Alcohol on presentation was unremarkable. Blood cultures and urine culture unremarkable. ASSESSMENT: 1. Metabolic encephalopathy. 2. Cirrhosis, child C. 3. Polysubstance drug abuse. 4. Alcohol abuse. DISCUSSION AND PLAN: We can keep the patient here for the time being. He has quite a bit to handle on the floor. Furthermore, he does not have any IV access. We will ensure that he can take his medi cations here. Hopefully, he continues clearing some of these toxins and his mentation will improve t o the point where he will be stable for transition out of the [facility]. Pulmonary Critical Care will con tinue to follow.
[2018-02-03] MEDS: Acetaminophen 500 MG TAB PO PRN ×2 (00:02→20:20)
[2018-02-03 05:26] LABS: #Eosinphils 0.2 thou/uL (0.0-0.7); #Lymphocytes 1.1 thou/uL (1.20-3.40); #Monocytes 1.3 thou/uL (0.11-0.59); #Neutrophils 9.7 thou/uL (1.40-6.50); %Basophils 0.3 % (0.0-1.0); %Eosinophils 1.7 % (0.0-10.0); %Lymphocytes 8.7 % (21.0-51.0); %Monocytes 10.5 % (0.0-10.0); %Neutrophils 78.8 % (42.0-75.0); Hemoglobin 6.5 g/dL (14.0-18.0); Mean Corpuscular HGB CONC 34.5 g/dL (32.0-36.0); Mean Corpuscular Hemoglobin 30.5 pg (27.0-31.0); Mean Corpuscular Volume 88.3 fl (80.0-94.0); Mean Platelet Volume 9.1 fL (7.4-10.4); Platelet Count 52 thou/uL (130-400); RBC Distribution Width 15.5 % (11.5-14.5); Red Blood Cell (RBC) Count 2.14 mill/uL (4.70-6.10); White Blood Cell (WBC) Count 12.3 thou/uL (4.8-10.8)
[2018-02-03 05:29] LABS: INR-International Normal Ratio 1.7; Prothrombin Time 20.7 SEC (12.0-14.7)
[2018-02-03 05:40] LABS: ALT (SGPT) 7 U/L (8-55); AST (SGOT) 18 U/L (5-34); Albumin 2.9 g/dL (3.4-4.8); Alkaline Phosphatase 64 U/L (40-150); Anion Gap 9 mmol/L (10-20); BUN (Urea Nitrogen) 35 mg/dL (8.4-25.7); Bilirubin, Total 2.7 mg/dL (0.2-1.2); Calc. Creatinine Clearance 43 mL/min (70-130); Carbon Dioxide 18 mmol/L (23-31); Chloride 107 mmol/L (98-107); Estimated GFR-MDRD 39; Globulin 2.7 g/dL (2.4-3.5); Glucose 96 mg/dL (83-110); Potassium 4.3 mmol/L (3.5-5.1); Protein, Total 5.6 g/dL (5.8-8.1); Sodium 130 mmol/L (136-145)
[2018-02-03] MEDS: Levothyroxine Sodium 125 MCG TAB PO SCH (05:59)
--- NOTE | 2018-02-03 07:26 | PDOC.FM ---
- Subjective Subjective: 73 yo M here for acute hepatic encephalopathy 2/2 cirrhosis from etoh abuse and chronic Hep C. Pt did much better over night last night. There were no episodes of delirium. Pt did, however, remove his dressing over the wound on left arm. Pt states that he feels better today than yesterday. He denies fever/chills, chest pain, SOB, cough, abdominal pain. He does complain of hurting "all over." When asked to better localize the pain he specifies his L arm - Objective MAR Reviewed: Yes Vital Signs & Weight: Vital Signs (12 hours) Temp Pulse Resp BP Pulse Ox 02/03/18 04:00 99.5 F 64 16 143/55 H 96 02/03/18 00:00 99.9 F H 70 17 136/42 L 98 02/02/18 20:00 99.4 F 70 19 99 02/02/18 19:53 99.4 F 70 19 134/51 L 99 Weight Admit Weight 82.01 kg Weight 79.18 kg I&O: 02/02/18 02/03/18 02/04/18 06:59 06:59 06:59 Intake Total 514 1000 Output Total 525 925 Balance -11 75 Result Diagrams: 02/03/18 04:06 02/03/18 04:06 <Alex Zelaya - Last Filed: 02/03/18 07:22> - Objective Vital Signs & Weight: Vital Signs (12 hours) Temp Pulse Resp BP Pulse Ox 02/03/18 08:00 99.3 F 71 20 02/03/18 07:44 99.3 F 71 148/63 H 97 02/03/18 04:00 99.5 F 64 16 143/55 H 96 02/03/18 00:00 99.9 F H 70 17 136/42 L 98 Weight Admit Weight 82.01 kg Weight 79.18 kg I&O: 02/02/18 02/03/18 02/04/18 06:59 06:59 06:59 Intake Total 514 1000 Output Total 525 925 Balance -11 75 Result Diagrams: 02/03/18 04:06 02/03/18 04:06 <Abebe Hart - Last Filed: 02/03/18 11:00> Phys Exam - Physical Examination Constitutional: NAD HEENT: moist MMs, sclera anicteric Neck: no JVD, supple, full ROM Respiratory: clear to auscultation bilateral Cardiovascular: RRR, no significant murmur Gastrointestinal: soft, non-tender, positive bowel sounds Stable mild ascites. Pitting edema L arm to wrist, improved from yesterday. Neurological: non-focal, normal sensation, moves all 4 limbs Psychiatric: normal affect Deviation from normal: A&O x2, does not know year Deviation from normal: Area of ecchymosis involving medial upper L arm, improved. -: Skin tear over midline site, unchanged. No dressing in place. Not infected <Alex Zelaya - Last Filed: 02/03/18 07:22> Dx/Plan (1) Anemia Code(s): D64.9 - ANEMIA, UNSPECIFIED Status: Chronic QualifierTitle: Anemia type: due to chronic kidney disease Chronic kidney disease stage: stage 3 (moderate) Qualified Code(s): N18.3 - Chronic kidney disease, stage 3 (moderate); D63.1 - Anemia in chronic kidney disease; D63.1 - Anemia in chronic kidney disease (2) Hematoma of arm Status: Acute QualifierTitle: Laterality: left (3) Acute hepatic encephalopathy Code(s): K72.00 - ACUTE AND SUBACUTE HEPATIC FAILURE WITHOUT COMA Status: Acute (4) Alcohol abuse Code(s): F10.10 - ALCOHOL ABUSE, UNCOMPLICATED Status: Chronic (5) Hypertension Code(s): I10 - ESSENTIAL (PRIMARY) HYPERTENSION Status: Chronic (6) Hepatitis C Code(s): B19.20 - UNSPECIFIED VIRAL HEPATITIS C WITHOUT HEPATIC COMA Status: Chronic (7) Liver disease, chronic, with cirrhosis Code(s): K74.60 - UNSPECIFIED CIRRHOSIS OF LIVER; K76.9 - LIVER DISEASE, UNSPECIFIED Status: Chronic (8) Coronary artery disease Code(s): I25.10 - ATHSCL HEART DISEASE OF [place] CORONARY ARTERY W/O ANG PCTRS Status: Chronic (9) Hypothyroidism Code(s): E03.9 - HYPOTHYROIDISM, UNSPECIFIED Status: Chronic (10) BOO (acute kidney injury) Code(s): N17.9 - ACUTE KIDNEY FAILURE, UNSPECIFIED Status: Resolved (11) Hypernatremia Code(s): E87.0 - HYPEROSMOLALITY AND HYPERNATREMIA Status: Resolved (12) Elevated lactic acid level Code(s): R79.89 - OTHER SPECIFIED ABNORMAL FINDINGS OF BLOOD CHEMISTRY Status : Resolved (13) Hypertensive urgency Code(s): I16.0 - HYPERTENSIVE URGENCY Status: Resolved (14) Hyperchloremia Code(s): E87.8 - OTH DISORDERS OF ELECTROLYTE AND FLUID BALANCE, NEC Status: Resolved - Plan Plan: AoC Anemia - Pt continues to drop Hb day over day. Will transfuse 1U PRBC today. Unlcear as to why his Hb is unstable. FOBT is pending. Pt does not appear to be bleeding into arm at this time. No schistocytes on CBC. Consider abd CT. - s/p 2 U PRBC 2 days ago - Monitor cbc in am - epogen recommended by nephro. Hematoma L UE - Likely 2/2 to bleeding post dc of midline - Originally there was concern for compartment syndrome, therefore Ortho was consulted and is following. No plan for surgery at this time. - WBC improved to 12.3 this morning. Not currently on abx. Procal was elevated to 3.03 yesterday afternoon, however he has remained afebrile and non tachycardic. Will continue to monitor for signs of infection and have low threshold for starting abx Cirrhosis 2/2 Hep C and Alcohol Abuse - followed closely by gastroenterology in [place]. Had to have multiple paracentesis done in november 2017 due to significant ascites and had about 8L drained. - Continued mild ascites this morning, non tender abdomen. - lasix and spironolactone were restarted. - pt has been moved to his home dose of lactulose. Pt has not had a BM in 2 days. Will add miralax this afternoon if this morning's dose does not produce a BM Acute Hepatic Encephalopathy - Stable. MELD score stable at 25 - Patient with hx of liver cirrhosis 2/2 Hep C and Alcohol abuse. - Continue Lactulose 10 mg BID per GI recommendation - Consulted Nephrology, Dr. Barragan, appreciate recs - Consulted GI, Dr. Maier, who has since signed off. Will consult again if condition worsens. Will continue to trend Daily INRs and Cr BOO: - Cr is stable. Pt appear to be at baseline - Encourage PO fluids HTN: -Controlled since started on spironolactone. Hypernatremia - Resolved. As above Hyperchloremia - Encourage PO water as this continues to rise. Dt to elevated INR I want to avoid starting another line if possible. 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 Cont home synthroid. Elevated lactic acid - resolved <Alex Zelaya - Last Filed: 02/03/18 07:22> Attending Addendum - Attending Addendum Date/Time: 02/03/18 6639 I personally evaluated the patient and discussed the management with Dr. Zelaya. I agree with the History, Examination, Assessment and Plan documented above with any addition or exceptions noted below. Patient denies complaints this morning other than his R sided arm pain. It appears stable and is not more tender. His Hgb has continued to drop, though slowly. It is likely either related to sequestration, distribution to the hematoma, or less likely GI bleeding. He has not had BM in a few days and we will work to rectify this to exclude GI bleed as well as to help treat his chronic encephalopathy. Lactulose increased and will add Miralax or enema if no BM later today. He is receiving 1 unit of RBCs this morning for Hgb <7. Continues to have low grade temps without fever or known source. PCT elevated but unknown utility due to his cirrhosis and proinflammatory state. No evidence for sepsis or septic shock. Continue to closely monitor. Other labs stable. Culture and abx if fevers. <Abebe Hart - Last Filed: 02/03/18 11:00>
[2018-02-03] MEDS: Carvedilol 3.125 MG TAB PO SCH ×2 (10:12→18:14)
[2018-02-03] MEDS: Rifaximin 550 MG TAB PO SCH ×2 (10:13→20:20)
[2018-02-03] MEDS: Spironolactone 25 MG TAB PO SCH (10:13)
[2018-02-03] MEDS: Atorvastatin Calcium 20 MG TAB PO SCH (10:13)
[2018-02-03] MEDS: Furosemide 40 MG TAB PO SCH ×2 (10:13→14:37)
[2018-02-03] MEDS: Simethicone Chewable 80 MG TAB PO SCH ×4 (10:14→20:20)
[2018-02-03 14:00] LABS: Bilirubin Negative (Negative); Blood, Urine Moderate (Negative); Clarity CLOUDY (Clear); Glucose, Urine (Dipstick) Negative (Negative); Leukocyte Large (Negative); Nitrite Positive (Negative); Protein, Urine (Dipstick) 30 mg/dL (Neg-Trace); Specific Gravity, Urine 1.017 (1.002-1.036); Urobilinogen 0.2 mg/dL (0.2-1.0)
[2018-02-03 14:03] LABS: Bacteria/HPF 1+ HPF (None Seen); Hyaline Casts/LPF 4-6 HYALINE CAST LPF (0-3 Hyaline); Pathc Cast-AUWi Flag 0.43 (0-2.49); Squamous Epithelial None Seen HPF (0-3)
--- NOTE | 2018-02-03 14:57 | PRG ---
DATE OF SERVICE: 02/03/2018 SERVICE: Pulmonary Medicine. INTERVAL HISTORY: The patient is doing great from a mentation standpoint. His hemoglobin dropped of f a little bit prompting a unit of blood. Outside of this, he has had no specific interval change to his condition. He is cooperative and taking his medications. He is eating okay. PHYSICAL EXAMINATION: VITAL SIGNS: Afebrile, pulse 71, blood pressure 160/50, respirations 20, saturation 97% on room air. GENERAL: The patient is awake, alert, no apparent distress. LUNGS: Decent air entry. There is no prolonged expiratory phase or wheezing present. HEART: Normal rate, regular. ABDOMEN: Soft, nontender, nondistended. Bowel sounds are positive. MUSCULOSKELETAL: No cyanosis or clubbing. There is trace pitting in the bilateral lower extremities . NEUROLOGIC: Grossly nonfocal. LABORATORY DATA: WBC 12.3, hemoglobin 6.5, platelets 52,000. INR 1.7. Creatinine 1.75 and roughly stable. Sodium 130. Basic metabolic profile is otherwise unremarkable. Total bilirubin is gently u p trending to 2.7. Liver function studies are otherwise unremarkable. Procalcitonin was actually re peated and is interestingly up trending. White blood cells are greater than 50 in the urine. Leukoc yte esterase is large, and nitrites are now positive. Urine culture is growing presumptive Klebsiell a and Enterobacter. Blood cultures x2 and urine culture are negative. ASSESSMENT: 1. Metabolic encephalopathy. 2. Cirrhosis, child C. 3. Urinary tract infection secondary to Klebsiella. 4. Polysubstance drug abuse. 5. Alcohol abuse. PLAN: The patient is doing fantastic from a respiratory standpoint. His hemoglobin is dropping off a little bit. He is on antibiotics for urinary tract infection. At this point, there is no further requirements for critical monitoring in the IMCU and can be transitioned to the medical unit. Chuck mendoza will continue to follow.
[2018-02-03] MEDS: cefTRIAXone\\ROCEPHIN 2 GM in Sodium Chloride 0.9% 100 ML IVPB SCH (15:23)
[2018-02-04 05:41] LABS: #Eosinphils 0.3 thou/uL (0.0-0.7); #Lymphocytes 1.1 thou/uL (1.20-3.40); #Monocytes 1.2 thou/uL (0.11-0.59); #Neutrophils 8.7 thou/uL (1.40-6.50); %Basophils 0.1 % (0.0-1.0); %Eosinophils 2.8 % (0.0-10.0); %Lymphocytes 9.7 % (21.0-51.0); %Monocytes 10.4 % (0.0-10.0); Hemoglobin 7.9 g/dL (14.0-18.0); Mean Corpuscular HGB CONC 34.4 g/dL (32.0-36.0); Mean Corpuscular Hemoglobin 30.8 pg (27.0-31.0); Mean Corpuscular Volume 89.4 fl (80.0-94.0); Mean Platelet Volume 8.8 fL (7.4-10.4); Platelet Count 62 thou/uL (130-400); RBC Distribution Width 15.4 % (11.5-14.5); Red Blood Cell (RBC) Count 2.58 mill/uL (4.70-6.10); White Blood Cell (WBC) Count 11.3 thou/uL (4.8-10.8)
[2018-02-04] MEDS: Levothyroxine Sodium 125 MCG TAB PO SCH (05:46)
[2018-02-04 05:48] LABS: ALT (SGPT) 8 U/L (8-55); AST (SGOT) 16 U/L (5-34); Albumin 2.8 g/dL (3.4-4.8); Alkaline Phosphatase 68 U/L (40-150); Anion Gap 7 mmol/L (10-20); BUN (Urea Nitrogen) 33 mg/dL (8.4-25.7); Bilirubin, Total 2.5 mg/dL (0.2-1.2); Calc. Creatinine Clearance 44 mL/min (70-130); Calcium 8.2 mg/dL (7.8-10.44); Carbon Dioxide 20 mmol/L (23-31); Chloride 109 mmol/L (98-107); Estimated GFR-MDRD 39; Globulin 2.7 g/dL (2.4-3.5); Glucose 115 mg/dL (83-110); Potassium 4.1 mmol/L (3.5-5.1); Protein, Total 5.5 g/dL (5.8-8.1); Sodium 132 mmol/L (136-145)
--- NOTE | 2018-02-04 07:58 | PDOC.FM ---
- Subjective Subjective: 73 yo M here for acute hepatic encephalopathy 2/2 cirrhosis from etoh abuse and chronic Hep C admitted initially for hepatic encephalopathy. He was able to move to medical yesterday. There were no acute events over night. He has no specific complaints other than his arm hurting. He denies all other symptoms in ROS - Objective MAR Reviewed: Yes Vital Signs & Weight: Vital Signs (12 hours) Temp Pulse Resp BP BP Pulse Ox 02/04/18 04:00 97.8 F 63 20 169/76 H 98 02/04/18 00:00 98.8 F 62 18 165/66 H 95 02/03/18 20:57 98.8 F 65 18 02/03/18 20:56 98.8 F 65 18 165/68 H 96 02/03/18 20:00 99.4 F 69 17 173/56 H 98 Weight Admit Weight 82.01 kg Weight 79.18 kg I&O: 02/03/18 02/04/18 02/05/18 06:59 06:59 06:59 Intake Total 1000 1650 Output Total 925 900 Balance 75 750 Result Diagrams: 02/04/18 04:48 02/04/18 04:48 <Alex Zelaya - Last Filed: 02/04/18 07:57> - Objective Vital Signs & Weight: Vital Signs (12 hours) Temp Pulse Resp BP Pulse Ox 02/04/18 10:05 98.2 F 65 20 190/76 H 97 02/04/18 08:00 98.2 F 65 20 02/04/18 04:00 97.8 F 63 20 169/76 H 98 02/04/18 00:00 98.8 F 62 18 165/66 H 95 Weight Admit Weight 82.01 kg Weight 79.18 kg I&O: 02/03/18 02/04/18 02/05/18 06:59 06:59 06:59 Intake Total 1000 1650 Output Total 925 900 Balance 75 750 Result Diagrams: 02/04/18 04:48 02/04/18 04:48 <Abebe Hart - Last Filed: 02/04/18 11:08> Phys Exam - Physical Examination Constitutional: NAD HEENT: moist MMs, sclera anicteric Neck: no JVD, supple, full ROM Respiratory: clear to auscultation bilateral Cardiovascular: RRR, no significant murmur, no rub Gastrointestinal: soft, non-tender, positive bowel sounds Stable ascites Improving edema on L hand Neurological: non-focal, normal sensation, moves all 4 limbs Psychiatric: A&O x 3 Skin: no rash, normal turgor Deviation from normal: Stable resolving eccymosis on L arm from hematoma <Alex Zelaya - Last Filed: 02/04/18 07:57> Dx/Plan (1) Anemia Code(s): D64.9 - ANEMIA, UNSPECIFIED Status: Chronic QualifierTitle: Anemia type: due to chronic kidney disease Chronic kidney disease stage: stage 3 (moderate) Qualified Code(s): N18.3 - Chronic kidney disease, stage 3 (moderate); D63.1 - Anemia in chronic kidney disease; D63.1 - Anemia in chronic kidney disease (2) Hematoma of arm Status: Acute QualifierTitle: Laterality: left (3) Acute hepatic encephalopathy Code(s): K72.00 - ACUTE AND SUBACUTE HEPATIC FAILURE WITHOUT COMA Status: Acute (4) Alcohol abuse Code(s): F10.10 - ALCOHOL ABUSE, UNCOMPLICATED Status: Chronic (5) Hypertension Code(s): I10 - ESSENTIAL (PRIMARY) HYPERTENSION Status: Chronic (6) Hepatitis C Code(s): B19.20 - UNSPECIFIED VIRAL HEPATITIS C WITHOUT HEPATIC COMA Status: Chronic (7) Liver disease, chronic, with cirrhosis Code(s): K74.60 - UNSPECIFIED CIRRHOSIS OF LIVER; K76.9 - LIVER DISEASE, UNSPECIFIED Status: Chronic (8) Coronary artery disease Code(s): I25.10 - ATHSCL HEART DISEASE OF [place] CORONARY ARTERY W/O ANG PCTRS Status: Chronic (9) Hypothyroidism Code(s): E03.9 - HYPOTHYROIDISM, UNSPECIFIED Status: Chronic (10) BOO (acute kidney injury) Code(s): N17.9 - ACUTE KIDNEY FAILURE, UNSPECIFIED Status: Resolved (11) Hypernatremia Code(s): E87.0 - HYPEROSMOLALITY AND HYPERNATREMIA Status: Resolved (12) Elevated lactic acid level Code(s): R79.89 - OTHER SPECIFIED ABNORMAL FINDINGS OF BLOOD CHEMISTRY Status : Resolved (13) Hypertensive urgency Code(s): I16.0 - HYPERTENSIVE URGENCY Status: Resolved (14) Hyperchloremia Code(s): E87.8 - [facility] DISORDERS OF ELECTROLYTE AND FLUID BALANCE, NEC Status: Resolved - Plan Plan: AoC Anemia - S/p 1U prbc. Hb on 7.9 today. Repeat in am - epogen recommended by nephro. - Likely blood was continuing to leak into hematoma Hematoma L UE - Likely 2/2 to bleeding post dc of midline - Originally there was concern for compartment syndrome, therefore Ortho was consulted and is following. No plan for surgery at this time. - WBC improveding UTI - cx found klebsiella sensitive to rocephin - currently on day 2 of abx Cirrhosis 2/2 Hep C and Alcohol Abuse - followed closely by gastroenterology in [place]. Had to have multiple paracentesis done in november 2017 due to significant ascites and had about 8L drained. - Continued mild ascites this morning, non tender abdomen. - lasix and spironolactone were restarted. - pt has been moved to his home dose of lactulose. Pt has not had a BM in 2 days. Will add miralax this afternoon if this morning's dose does not produce a BM Acute Hepatic Encephalopathy - Stable - Patient with hx of liver cirrhosis 2/2 Hep C and Alcohol abuse. - Continue Lactulose 10 mg BID per GI recommendation - Consulted Nephrology, Dr. Barragan, appreciate recs - Consulted GI, Dr. Maier, who has since signed off. Will consult again if condition worsens. Will continue to trend Daily INRs and Cr BOO: - Cr is stable. Pt appear to be at baseline - Encourage PO fluids HTN: -Controlled since started on spironolactone. Hypernatremia - Resolved. As above Hyperchloremia - Encourage PO water as this continues to rise. Dt to elevated INR I want to avoid starting another line if possible. 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 Cont home synthroid. Elevated lactic acid - resolved <Alex Zelaya - Last Filed: 02/04/18 07:57> Attending Addendum - Attending Addendum Date/Time: 02/04/18 1105 I personally evaluated the patient and discussed the management with Dr. Zelaya. I agree with the History, Examination, Assessment and Plan documented above with any addition or exceptions noted below. Patient denies complaints this morning. His is having some changes made to his lactulose regimen to increase bowel movement frequency that will help with some distention in his abdomen and to prevent worsening encephalopathy. His blood counts are stable after 1 unit transfusion. His has evidence of UTI based on UA and cultures results, and has been started on Rocephin. WBC improved and temperatures improved. <Abebe Hart R - Last Filed: 02/04/18 11:08>
[2018-02-04] MEDS: Atorvastatin Calcium 20 MG TAB PO SCH (09:29)
[2018-02-04] MEDS: Rifaximin 550 MG TAB PO SCH ×2 (09:29→19:41)
[2018-02-04] MEDS: Carvedilol 3.125 MG TAB PO SCH ×2 (09:30→18:10)
[2018-02-04] MEDS: Furosemide 40 MG TAB PO SCH ×2 (09:30→14:29)
[2018-02-04] MEDS: Spironolactone 25 MG TAB PO SCH (09:30)
[2018-02-04] MEDS: Simethicone Chewable 80 MG TAB PO SCH ×4 (10:10→21:01)
[2018-02-04 10:30] LABS: INR-International Normal Ratio 1.6; Prothrombin Time 19.2 SEC (12.0-14.7)
[2018-02-04] MEDS: cefTRIAXone\\ROCEPHIN 2 GM in Sodium Chloride 0.9% 100 ML IVPB SCH (14:28)
[2018-02-04] MEDS: Acetaminophen 500 MG TAB PO PRN (14:33)
[2018-02-04] MEDS: hydrALAZINE 20 MG/ML VIAL SLOW IVP PRN (14:39)
[2018-02-04] MEDS: traZODone HCl 50 MG TAB PO PRN (22:19)
[2018-02-05] MEDS: Levothyroxine Sodium 125 MCG TAB PO SCH (05:24)
[2018-02-05 07:03] LABS: #Eosinphils 0.3 thou/uL (0.0-0.7); #Lymphocytes 1.1 thou/uL (1.20-3.40); #Neutrophils 8.3 thou/uL (1.40-6.50); %Basophils 0.4 % (0.0-1.0); %Eosinophils 2.9 % (0.0-10.0); %Lymphocytes 9.8 % (21.0-51.0); %Monocytes 9.7 % (0.0-10.0); %Neutrophils 77.3 % (42.0-75.0); Hemoglobin 8.1 g/dL (14.0-18.0); Mean Corpuscular HGB CONC 33.7 g/dL (32.0-36.0); Mean Corpuscular Hemoglobin 31.4 pg (27.0-31.0); Mean Platelet Volume 9.1 fL (7.4-10.4); Platelet Count 72 thou/uL (130-400); RBC Distribution Width 15.8 % (11.5-14.5); Red Blood Cell (RBC) Count 2.59 mill/uL (4.70-6.10); White Blood Cell (WBC) Count 10.8 thou/uL (4.8-10.8)
[2018-02-05 07:17] LABS: ALT (SGPT) 7 U/L (8-55); AST (SGOT) 19 U/L (5-34); Albumin 2.7 g/dL (3.4-4.8); Alkaline Phosphatase 66 U/L (40-150); Anion Gap 9 mmol/L (10-20); BUN (Urea Nitrogen) 30 mg/dL (8.4-25.7); Bilirubin, Total 2.1 mg/dL (0.2-1.2); Calc. Creatinine Clearance 43 mL/min (70-130); Calcium 8.1 mg/dL (7.8-10.44); Carbon Dioxide 16 mmol/L (23-31); Chloride 112 mmol/L (98-107); Estimated GFR-MDRD 38; Globulin 2.9 g/dL (2.4-3.5); Glucose 96 mg/dL (83-110); Potassium 3.9 mmol/L (3.5-5.1); Protein, Total 5.6 g/dL (5.8-8.1); Sodium 133 mmol/L (136-145)
[2018-02-05] MEDS: Atorvastatin Calcium 20 MG TAB PO SCH (08:14)
[2018-02-05] MEDS: Carvedilol 3.125 MG TAB PO SCH ×2 (08:14→18:09)
[2018-02-05] MEDS: Furosemide 40 MG TAB PO SCH (08:14)
[2018-02-05] MEDS: Spironolactone 25 MG TAB PO SCH (08:14)
[2018-02-05] MEDS: Rifaximin 550 MG TAB PO SCH ×2 (08:16→20:35)
[2018-02-05] MEDS: Simethicone Chewable 80 MG TAB PO SCH ×4 (08:17→20:35)
--- NOTE | 2018-02-05 08:55 | PDOC.FM ---
- Subjective Subjective: 73 yo M here for acute hepatic encephalopathy 2/2 cirrhosis from etoh abuse and chronic Hep C admitted initially for hepatic encephalopathy. Hospital course has been complicated by a large hematoma on his left arm at the site of a dc'd midline and UTI. Today pt complains of L arm pain, not worsening from yesterday. He denies fever, chills, n/v. He had 3 semisolid bm's yesterday. There were no acute events over night. He denies other symptoms in ROS other than noted above - Objective MAR Reviewed: Yes Vital Signs & Weight: Vital Signs (12 hours) Temp Pulse Resp BP Pulse Ox 02/05/18 04:00 99.2 F 68 20 162/69 H 98 Weight Admit Weight 82.01 kg Weight 79.18 kg I&O: 02/04/18 02/05/18 02/06/18 06:59 06:59 06:59 Intake Total 1650 1320 Output Total 900 650 Balance 750 670 Result Diagrams: 02/05/18 06:35 02/05/18 06:35 <Alex Zelaya - Last Filed: 02/05/18 08:53> - Objective Vital Signs & Weight: Vital Signs (12 hours) Temp Pulse Resp BP Pulse Ox 02/05/18 08:00 98.4 F 66 20 171/66 H 98 02/05/18 04:00 99.2 F 68 20 162/69 H 98 Weight Admit Weight 82.01 kg Weight 79.18 kg I&O: 02/04/18 02/05/18 02/06/18 06:59 06:59 06:59 Intake Total 1650 1320 180 Output Total 900 650 Balance 750 670 180 Result Diagrams: 02/05/18 06:35 02/05/18 06:35 <Abebe Hart - Last Filed: 02/05/18 11:44> Phys Exam - Physical Examination Constitutional: NAD HEENT: moist MMs, sclera anicteric Neck: no JVD, supple, full ROM Respiratory: clear to auscultation bilateral Cardiovascular: RRR, no significant murmur Gastrointestinal: soft, non-tender, positive bowel sounds Abdomen appears to be more distended today. Fluid level higher than yesterday by percussion Musculoskeletal: no edema Neurological: non-focal, moves all 4 limbs Lymphatic: no nodes Psychiatric: normal affect, A&O x 3 Skin: no rash <Alex Zelaya - Last Filed: 02/05/18 08:53> Dx/Plan (1) Anemia Code(s): D64.9 - ANEMIA, UNSPECIFIED Status: Chronic QualifierTitle: Anemia type: due to chronic kidney disease Chronic kidney disease stage: stage 3 (moderate) Qualified Code(s): N18.3 - Chronic kidney disease, stage 3 (moderate); D63.1 - Anemia in chronic kidney disease; D63.1 - Anemia in chronic kidney disease (2) Hematoma of arm Status: Acute QualifierTitle: Laterality: left (3) Acute hepatic encephalopathy Code(s): K72.00 - ACUTE AND SUBACUTE HEPATIC FAILURE WITHOUT COMA Status: Acute (4) Alcohol abuse Code(s): F10.10 - ALCOHOL ABUSE, UNCOMPLICATED Status: Chronic (5) Hypertension Code(s): I10 - ESSENTIAL (PRIMARY) HYPERTENSION Status: Chronic (6) Hepatitis C Code(s): B19.20 - UNSPECIFIED VIRAL HEPATITIS C WITHOUT HEPATIC COMA Status: Chronic (7) Liver disease, chronic, with cirrhosis Code(s): K74.60 - UNSPECIFIED CIRRHOSIS OF LIVER; K76.9 - LIVER DISEASE, UNSPECIFIED Status: Chronic (8) Coronary artery disease Code(s): I25.10 - ATHSCL HEART DISEASE OF [place] CORONARY ARTERY W/O ANG PCTRS Status: Chronic (9) Hypothyroidism Code(s): E03.9 - HYPOTHYROIDISM, UNSPECIFIED Status: Chronic (10) BOO (acute kidney injury) Code(s): N17.9 - ACUTE KIDNEY FAILURE, UNSPECIFIED Status: Resolved (11) Hypernatremia Code(s): E87.0 - HYPEROSMOLALITY AND HYPERNATREMIA Status: Resolved (12) Elevated lactic acid level Code(s): R79.89 - OTHER SPECIFIED ABNORMAL FINDINGS OF BLOOD CHEMISTRY Status : Resolved (13) Hypertensive urgency Code(s): I16.0 - HYPERTENSIVE URGENCY Status: Resolved (14) Hyperchloremia Code(s): E87.8 - OTH DISORDERS OF ELECTROLYTE AND FLUID BALANCE, NEC Status: Resolved - Plan Plan: UTI - cx found klebsiella sensitive to rocephin - currently on day 3 of abx AoC Anemia - Hb is improving today. - s/p 3u PRBC - epogen recommended by nephro. would recommend outpt follow up with home nephro Hematoma L UE - Likely 2/2 to bleeding post dc of midline - Originally there was concern for compartment syndrome, therefore Ortho was consulted and is following. No plan for surgery at this time. Cirrhosis 2/2 Hep C and Alcohol Abuse - followed closely by gastroenterology in [place]. Had to have multiple paracentesis done in november 2017 due to significant ascites and had about 8L drained. - Continued mild ascites this morning, non tender abdomen. - lasix and spironolactone were restarted. Dt worsening BP control will move to 100 mg of total lasix and 37.5 mg of aldactone - pt has been moved to his home dose of lactulose. Had multiple BMs yesterday. Continue to monitor Acute Hepatic Encephalopathy - Stable - Patient with hx of liver cirrhosis 2/2 Hep C and Alcohol abuse. - Lactulose moved to home dose of 30 total qday - Consulted Nephrology, Dr. Barragan, appreciate recs - Consulted GI, Dr. Maier, who has since signed off. Will consult again if condition worsens. Will continue to trend Daily INRs and Cr BOO: - Cr is stable. Pt appear to be at baseline - Encourage PO fluids HTN: - Increased aldactone and lasix as above Hypernatremia - Resolved. As above Hyperchloremia - Encourage PO water as this continues to rise. Dt to elevated INR I want to avoid starting another line if possible. 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 Cont home synthroid. Elevated lactic acid - resolved Dispo: pt is improving and apparently approaching his normal baseline. Pt likely ready to dc in 24-48 hours <Alex Zelaya - Last Filed: 02/05/18 08:53> Attending Addendum - Attending Addendum Date/Time: 02/05/18 8933 I personally evaluated the patient and discussed the management with Dr. Zelaya. I agree with the History, Examination, Assessment and Plan documented above with any addition or exceptions noted below. Patient with improved bowel movements with increased Lactulose dosing. His Hgb is stable and his hematoma is stable. Afebrile with normal temperature curve and downtrending WBC. Continue abx for UTI and transition to PO abx later today. His BP will be modulated by increasing diuretic regimen. Nearing stability for discharge. Will work with CM to arrange for him leaving the hospital, anticipate tomorrow. <Abebe Hart - Last Filed: 02/05/18 11:44>
[2018-02-05] MEDS ORDERED: Spironolactone 25 MG TAB PO SCH (09:05)
--- NOTE | 2018-02-05 09:41 | PRG ---
DATE OF SERVICE: 02/05/2018 SUBJECTIVE: He is more awake and alert. Apparently, he has pulled his central line out. PHYSICAL EXAMINATION: VITAL SIGNS: On exam, temperature is 99.2, pulse 68, respiratory rate is 20, O2 sat 98%. HEENT: Unremarkable. NECK: No JVD. LUNGS: Clear. CARDIOVASCULAR: S1 and S2, regular. ABDOMEN: Soft, slightly distended. EXTREMITIES: No edema. LABORATORY DATA: White blood cell count 10.8, hematocrit 24.1, platelet count 72. Sodium 133, potas sium 3.9, chloride 112, CO2 of 16, BUN 30, creatinine 1.7, glucose 96. ASSESSMENT: 1. Improved encephalopathy. 2. End-stage liver disease. 3. Non-anion gap metabolic acidosis. RECOMMENDATIONS: The patient seems to be stable with a multitude of chronic medical problems. He ca n likely be switched over to oral antibiotics. He is being treated for Klebsiella and Enterobacter i n his urine. I suspect he is close to being discharged. There is no further Pulmonary Critical Care recommendations. We will sign off the case.
[2018-02-05 10:17] LABS: INR-International Normal Ratio 1.6; Prothrombin Time 19.5 SEC (12.0-14.7)
--- NOTE | 2018-02-05 11:50 | PRG ---
DATE OF SERVICE: 02/04/2018 SERVICE: Pulmonary Medicine. INTERVAL HISTORY: The patient is doing fine from cardiovascular and respiratory standpoint. He dayday es any current chest pain, nausea, vomiting, shortness of breath, fevers or chills. He has little in creasing shortness of breath. He has a little increasing abdominal discomfort as well. PHYSICAL EXAMINATION: VITAL SIGNS: Afebrile, pulse 59, blood pressure 181/80, respirations 16, saturation 98% on room air. GENERAL: The patient is awake, alert, no apparent distress. LUNGS: Decent air entry. There is no prolonged expiratory phase, wheezing, rhonchi or crackles. HEART: Normal rate, regular. ABDOMEN: Soft. Distended with little bit of ascites. He is not tense, however. Bowel sounds are p resent. There is minimal rebound tenderness. MUSCULOSKELETAL: No cyanosis or clubbing. No pitting in the bilateral lower extremities. NEUROLOGIC: Grossly nonfocal. LABORATORY DATA: Urine culture are growing Enterobacter. Blood cultures x2 are unremarkable. ASSESSMENT: 1. Metabolic encephalopathy, improving. 2. 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 3. Urinary tract infection secondary to gram negative adrianna. 4. Polysubstance drug abuse. 5. Alcohol abuse. 6. Ascites. LABORATORY DATA: WBC 11.3, hemoglobin 7.9 and platelets 62,000. INR 1.6. Creatinine 1.72 and rough ly stable. BUN 33. Basic metabolic profile is essentially unremarkable. Sodium is up trending to 132. Liver function studies are essentially unremarkable except for stable bilirubin of 2.5. PLAN: We will continue our antibiotics and medications directed for chronic liver disease. He does have abdominal tenderness which is quite mild. He does not have tense ascites, but we will need to m onitor his belly fluid. If he develops increasing abdominal distention, paracentesis will need to be considered. He got these routinely in [place] before he came here. I will provide the patient with la boratory holiday tomorrow morning.
[2018-02-05] MEDS ORDERED: Furosemide 40 MG TAB PO SCH (14:00)
[2018-02-05] MEDS: cefTRIAXone\\ROCEPHIN 2 GM in Sodium Chloride 0.9% 100 ML IVPB SCH (14:45)
[2018-02-05] MEDS: traZODone HCl 50 MG TAB PO PRN (20:36)
[2018-02-06 05:36] LABS: INR-International Normal Ratio 1.6; Prothrombin Time 19.1 SEC (12.0-14.7)
[2018-02-06 05:48] LABS: #Basophils 0.1 thou/uL (0.0-0.2); #Eosinphils 0.4 thou/uL (0.0-0.7); #Lymphocytes 1.3 thou/uL (1.20-3.40); #Neutrophils 5.2 thou/uL (1.40-6.50); %Basophils 0.7 % (0.0-1.0); %Eosinophils 4.6 % (0.0-10.0); %Monocytes 12.3 % (0.0-10.0); %Neutrophils 66.4 % (42.0-75.0); Hemoglobin 7.5 g/dL (14.0-18.0); Mean Corpuscular HGB CONC 33.3 g/dL (32.0-36.0); Mean Corpuscular Hemoglobin 30.7 pg (27.0-31.0); Mean Corpuscular Volume 92.1 fl (80.0-94.0); Mean Platelet Volume 8.7 fL (7.4-10.4); Platelet Count 78 thou/uL (130-400); RBC Distribution Width 15.6 % (11.5-14.5); Red Blood Cell (RBC) Count 2.45 mill/uL (4.70-6.10); White Blood Cell (WBC) Count 7.8 thou/uL (4.8-10.8)
[2018-02-06] MEDS: Levothyroxine Sodium 125 MCG TAB PO SCH (05:55)
[2018-02-06] MEDS ORDERED: Furosemide 20 MG TAB PO SCH (06:00)
[2018-02-06 06:01] LABS: ALT (SGPT) Less than 7 U/L (8-55); AST (SGOT) 18 U/L (5-34); Albumin 2.5 g/dL (3.4-4.8); Alkaline Phosphatase 72 U/L (40-150); Anion Gap 9 mmol/L (10-20); BUN (Urea Nitrogen) 27 mg/dL (8.4-25.7); Bilirubin, Total 1.6 mg/dL (0.2-1.2); Calc. Creatinine Clearance 42 mL/min (70-130); Calcium 7.8 mg/dL (7.8-10.44); Carbon Dioxide 16 mmol/L (23-31); Chloride 112 mmol/L (98-107); Estimated GFR-MDRD 37; Globulin 2.7 g/dL (2.4-3.5); Glucose 97 mg/dL (83-110); Potassium 3.7 mmol/L (3.5-5.1); Protein, Total 5.2 g/dL (5.8-8.1); Sodium 133 mmol/L (136-145)
[2018-02-06] MEDS ORDERED: Spironolactone 25 MG TAB PO SCH (08:00)
--- NOTE | 2018-02-06 08:20 | PDOC.FM ---
- Subjective Subjective: 73 yo M here for acute hepatic encephalopathy 2/2 cirrhosis from etoh abuse and chronic Hep C admitted initially for hepatic encephalopathy. Hospital course has been complicated by a large hematoma on his left arm at the site of a dc'd midline and UTI. Today he states that his arm is improving and he has no specific complaints. Other than arm pain, all symptoms in ROS were negative to include abdominal pain, chest pain, sob, n/v. There were no acute events over night. - Objective MAR Reviewed: Yes Vital Signs & Weight: Vital Signs (12 hours) Temp Pulse Resp BP Pulse Ox 02/06/18 04:00 98.4 F 65 20 148/52 H 96 Weight Admit Weight 82.01 kg Weight 79.18 kg I&O: 02/05/18 02/06/18 02/07/18 06:59 06:59 06:59 Intake Total 1320 1900 Output Total 650 300 Balance 670 1900 -300 Result Diagrams: 02/06/18 04:39 02/06/18 04:39 <Alex Zelaya - Last Filed: 02/06/18 08:18> - Objective Vital Signs & Weight: Vital Signs (12 hours) Temp Pulse Resp BP BP Pulse Ox 02/06/18 08:00 98.0 F 64 18 173/67 H 98 02/06/18 04:00 98.4 F 65 20 148/52 H 96 Weight Admit Weight 82.01 kg Weight 79.18 kg I&O: 02/05/18 02/06/18 02/07/18 06:59 06:59 06:59 Intake Total 1320 1900 180 Output Total 650 300 Balance 670 1900 -120 Result Diagrams: 02/06/18 04:39 02/06/18 04:39 <Abebe Hart - Last Filed: 02/06/18 10:48> Phys Exam - Physical Examination Constitutional: NAD HEENT: moist MMs, sclera anicteric Neck: no JVD, supple, full ROM Respiratory: clear to auscultation bilateral Cardiovascular: RRR, no significant murmur Gastrointestinal: soft, non-tender, positive bowel sounds Stable ascites. Minimal pitting edema on L hand/wrist. Improving . Neurological: non-focal, normal sensation, moves all 4 limbs Psychiatric: normal affect, A&O x 3 Skin: normal turgor Deviation from normal: Improving eccymosis on L upper arm <Alex Zelaya - Last Filed: 02/06/18 08:18> Dx/Plan (1) Anemia Code(s): D64.9 - ANEMIA, UNSPECIFIED Status: Chronic QualifierTitle: Anemia type: due to chronic kidney disease Chronic kidney disease stage: stage 3 (moderate) Qualified Code(s): N18.3 - Chronic kidney disease, stage 3 (moderate); D63.1 - Anemia in chronic kidney disease; D63.1 - Anemia in chronic kidney disease (2) Hematoma of arm Status: Acute QualifierTitle: Laterality: left (3) Acute hepatic encephalopathy Code(s): K72.00 - ACUTE AND SUBACUTE HEPATIC FAILURE WITHOUT COMA Status: Acute (4) Alcohol abuse Code(s): F10.10 - ALCOHOL ABUSE, UNCOMPLICATED Status: Chronic (5) Hypertension Code(s): I10 - ESSENTIAL (PRIMARY) HYPERTENSION Status: Chronic (6) Hepatitis C Code(s): B19.20 - UNSPECIFIED VIRAL HEPATITIS C WITHOUT HEPATIC COMA Status: Chronic (7) Liver disease, chronic, with cirrhosis Code(s): K74.60 - UNSPECIFIED CIRRHOSIS OF LIVER; K76.9 - LIVER DISEASE, UNSPECIFIED Status: Chronic (8) Coronary artery disease Code(s): I25.10 - ATHSCL HEART DISEASE OF [place] CORONARY ARTERY W/O ANG PCTRS Status: Chronic (9) Hypothyroidism Code(s): E03.9 - HYPOTHYROIDISM, UNSPECIFIED Status: Chronic (10) BOO (acute kidney injury) Code(s): N17.9 - ACUTE KIDNEY FAILURE, UNSPECIFIED Status: Resolved (11) Hypernatremia Code(s): E87.0 - HYPEROSMOLALITY AND HYPERNATREMIA Status: Resolved (12) Elevated lactic acid level Code(s): R79.89 - OTHER SPECIFIED ABNORMAL FINDINGS OF BLOOD CHEMISTRY Status : Resolved (13) Hypertensive urgency Code(s): I16.0 - HYPERTENSIVE URGENCY Status: Resolved (14) Hyperchloremia Code(s): E87.8 - OTH DISORDERS OF ELECTROLYTE AND FLUID BALANCE, NEC Status: Resolved - Plan Plan: UTI - cx found klebsiella sensitive to rocephin. Change to omnicef today - currently on day 4 of abx. Will continue outpatient AoC Anemia - Hb is stable - s/p 3u PRBC - epogen recommended by nephro. would recommend outpt follow up with home nephro Hematoma L UE - Resolving Cirrhosis 2/2 Hep C and Alcohol Abuse - followed closely by gastroenterology in [place] - Stable ascites, non tender abd - lasix and spironolactone dose was increased yesterday. BP has trended down. - pt had increased dose of lactulose yesterday. Had multiple BMs yesterday, however complaining of bloating. Consider decreasing back down to home dose on discharge Acute Hepatic Encephalopathy - Stable - Patient with hx of liver cirrhosis 2/2 Hep C and Alcohol abuse. - Consulted Nephrology, Dr. Barragan, appreciate recs - Consulted GI, Dr. Maier, who has since signed off. Will consult again if condition worsens. Will continue to trend Daily INRs and Cr BOO: - Cr is stable. Pt appear to be at baseline - Encourage PO fluids HTN: - Increased aldactone and lasix as above. Bp is improving Hypernatremia - Resolved. As above Hyperchloremia - resolvd Thrombocytopenia - 2/2 Cirrhosis Hyperbilirubinemia - 2/2 Cirrhosis Hypoalbuminemia - 2/2 Cirrhosis Methamphetamine use - behavioral health counselor on cessation Hypothyroidism - TSH wnl. Cont home synthroid. Elevated lactic acid - resolved Dispo: pt is improving and apparently approaching his normal baseline. Pt likely ready to dc today <Alex Zelaya - Last Filed: 02/06/18 08:18> Attending Addendum - Attending Addendum Date/Time: 02/06/18 1047 I personally evaluated the patient and discussed the management with Dr. Zelaya. I agree with the History, Examination, Assessment and Plan documented above with any addition or exceptions noted below. Patient doing well and has no complaints. His encephalopathy 2/2 cirrhosis is resolved and he will continue on Lactulose on discharge. Hematoma stable and unchanged, Hgb stable. He will continue on a few more days of abx for UTI, but has normalized WBC and has been afebrile. Liver values stable from cirrhosis standpoint. He is stable for discharge home from hospital and will need close follow up with his PCP in [place] and patient is understanding of this. <Abebe Hart - Last Filed: 02/06/18 10:48>
[2018-02-06] MEDS: Spironolactone 25 MG TAB PO SCH (08:40)
[2018-02-06] MEDS: Atorvastatin Calcium 20 MG TAB PO SCH (08:41)
[2018-02-06] MEDS: Rifaximin 550 MG TAB PO SCH (08:41)
[2018-02-06] MEDS: Carvedilol 3.125 MG TAB PO SCH (08:41)
[2018-02-06] MEDS: Simethicone Chewable 80 MG TAB PO SCH (08:42)
[2018-02-06] MEDS ORDERED: Cefdinir 300 MG CAP PO SCH (09:00)
[2018-02-06 10:44] VITALS: TEMP 98
[2018-02-06 11:56] VITALS: BP 152/66
--- NOTE | 2018-02-07 12:07 | DIS-2 ---
DATE OF ADMISSION: 01/24/2018 DATE OF DISCHARGE: 02/06/2018 ADMITTING ATTENDING: Saskia Celeste MD DISCHARGE ATTENDING: Dr. Arellano. RESIDENTS: Alex Zelaya DO CONSULTS: Dr. Ирина Barragan, Nephrology, Dr. Juan José Maier, Gastroenterology, Dr. [place], lmonology. PROCEDURES: Right subclavian intravenous catheter. Upper extremity MRI of the left arm finding hete rogeneous mass confirmed to the medial margin of the biceps muscle, focal concave margin consistent w ith hematoma or mass. Left upper arm with Doppler showing a 9.5 cm solid mass in the soft tissue. N o DVT noted. Small bowel follow through with Gastrografin, finding no evidence for dilated small bow el or small-bowel obstruction. Brain CT, finding no intracranial hemorrhage or displaced calvarial f racture. Positive for mild diffuse cerebral volume loss. DISCHARGE MEDICATIONS: Xifaxan 550 mg p.o. b.i.d., Coreg 3.125 mg p.o. b.i.d., atorvastatin 20 mg p. o. daily, Protonix 40 mg p.o. daily, Synthroid 125 mcg p.o. daily, Imdur 30 mg p.o. daily, Lasix 40 m g p.o. q.a.m. and 60 mg p.o. q.p.m., lactulose 15 grams b.i.d. to t.i.d., Plavix 75 mg p.o. daily, tr azodone 150 mg p.o. daily, Omnicef 300 mg p.o. b.i.d. x5 days, Aldactone 25 mg p.o. q.a.m. and 12.5 m g p.o. q.a.m. DISCONTINUE MEDICATIONS: Lactulose 20 mg p.o. t.i.d., Lasix 40 mg p.o. b.i.d. and Inspra 25 mg p.o. b.i.d. PRIMARY DIAGNOSIS: Acute hepatic encephalopathy secondary to cirrhosis. SECONDARY DIAGNOSES: Hepatitis C, untreated, alcohol abuse, coronary artery disease, hypothyroidism, hypertension, hypertensive urgency, elevated lactic acid, and acute kidney injury. HOSPITAL COURSE: This is a 73-year-old male with a history of cirrhosis secondary to alcohol abuse a nd untreated hepatitis C who was admitted for acute hepatic encephalopathy. The patient was admitted for acute hepatic encephalopathy. At the time of admission, the patient was obtunded and was unable to provide any history. All history was provided by the patient's girlfriend, Caroline Acevedo. Apparent ly, he had come down from [place] where he lives to visit a friend for a few weeks' time. The patient d ecided because he was taking the bus down that he would not bring his medications to include lactulos e due to the diarrhea induces. Therefore, at the time of presentation, the patient had been without any of his medication for approximately 3 weeks. The patient has a history of encephalopathic episod es every 1-3 months due to noncompliance with his medication. At the time of his admission this time , he was also positive for methamphetamine, which apparently the patient had been using extensively w ell when needed. On admission, the patient had ammonia level of 79. Other significant lab abnormali ties include white count of 11.3, platelets of 108, neutrophils 84.9%, creatinine of 1.86. Lactic ac id at 3.1, total bilirubin of 2.2, AST 43, ALT 14. Ammonia 79, CK-MB 7.0, BNP 146. UDS positive for amphetamines and methamphetamines. UA showing moderate blood, 7-10 red cells, PT of 19.3 and an INR of 1.6. Vital signs at the time of admission, blood pressure of 229/104, heart rate of 90, respirat ory rate of 21, T-max 98.4, pulse ox 97% on room air, weight of 80 kilograms. At the time of admissi on, due to increased CK-MB, troponins and CK-MB were trended with a maximum CK-MB of 8.0 after which point, it began to trend downward and a maximum troponin of 0.54. Additionally, lactic acid was tren ded with a maximum of 3.2. All of these lab values began to show improvement after 12 hours of admis maribel and significant fluid resuscitation. Initially on admission, there was concern for possible sma ll bowel obstruction due to findings on a KUB done in the emergency room. We were unable to obtain a CT due to the patient's acute kidney injury. The plan was for serial abdominal exams and to order a nasogastric tube if symptoms began to worsen. Hypertensive urgency at the time of admission, the patient was given IV labetalol and his condition began to improve and his blood pressure began to im prove. On second day of admission, the patient's vital signs began to improve his blood pressure began to lo wer into the 170 systolic range over 200. Additionally, first 24 hours, the patient diuresed approxi mately 1.4 liters. Additionally, his kidney function improved with a creatinine of 1.6. Treatment f or the hepatic encephalopathy included giving the patient's lactulose which he had not been taking in the outpatient setting as well as Fleet enemas p.r.n. Due to the fact, the patient was not having a ppropriate amount of bowel movements to clear the pneumonia. It is noted on the second day of admiss ion that the patient began to have a tender abdomen as well as some distention concerning for possibl e SBO. Fluids were continued and lactulose was continued given there was some issue with the patient refusing his lactulose significantly in order to get the patient to take his meds. Second day of ad mission, the patient's ammonia began to trend down; however, abdominal pain continued to worsen. The re is some concern of possible SBP with plan initially for bedside ultrasound and paracentesis; howev er, this was not performed due to lack of significant fluid pocket. His blood pressure continues to improve as well and then additionally he continued to diurese; however, because of drop in patient's creatinine on this day, Lasix was discontinued and the patient was started on some fluid for resuscit ation. On the next day of admission, he continued to improve; however, the patient became hypernatremic, hyp erchloremic, hypokalemic and kidney function continued to worsen, though the patient did have a 2.6 l iters of fluid the prior day. On that day, Nephrology and GI were both consulted due to the patient' s worsening condition. There began to be concern for hepatorenal syndrome. A GI recommendations at that time were to back down on the patient's lactulose possible that he was getting too much and this was causing increased gas distention which could be the cause of the patient's abdominal pain. Neph rology recommendations include free water for the patient's hypernatremia. On the day, the patient's MELD score was 19. The following day, the patient's sodium began to normalize. His chloride and potassium remained low and his creatinine remains similar to baseline when he came in at 2.29. The patient became more orie nted than he had previously and his vital signs were more controlled. However, his MELD score increa sed to 22 from the previous day is 19. This led to concern from GI, possible hepatorenal syndrome. However, seems more likely that labs are more consistent with a prerenal azotemia. He was put on 25 grams of Augmentin q.6 hours. Additionally, spironolactone was discontinued. On 01/29/2018, the patient's orientation appeared to stabilize and his lab abnormalities began to nor malize. Although, he remained slightly hypokalemic, his creatinine continued to improve and creatini ne on the day was 1.88; however assume baseline of 1.5 from records from [place]. The patient continued to have fluid resuscitation of D5W. This was tapered off the dangers effects of the medication. Th e patient's free water deficit had been overcome. On that day, the patient continues to have a MELD score of 22 with an INR of 2.0 and bilirubin of 1.3. Patient's albumin was continued per GI recommen dations. The patient continued to improve. On 01/30/2018, the patient continued to maintain his orientation. Patient's anemia from admission be jacek to worsen down from 10.4 on admission, down to 7.5, over the mid 7s by that day. It was determin ed this is likely secondary to volume expansion. The patient's creatinine remained stable as the oth er electrolytes, fluids. Patient was able to take p.o. and intravenous was stopped and MELD score re colt stable at this point for the remainder of the admission between 20 and 24 on that day. GI yola mmendation on that day was to discontinue albumin as the patient appeared to not be in hepatorenal sy ndrome due to effect of the kidney function improves while on albumin. Once the GI signed off the ca se, it appeared the patient had been improving significantly. Due to patient's worsening hemoglobin to 6.7, he was transfused 2 units of packed red blood cells. There is some concern that the patient only improved to 7.7 given that he had been given 2 units the previous day. On 01/31/2018, patient's mental status continued to improve. It was noted that his hemoglobin contin ued to worsen and down to 6.7. Additionally, the patient began to mount a white count of 11.9. MELD score remains stable at 23. The increase of his white count in physical exam on the day were concer madison for infected midline on his left arm. The midline was discontinued; however, there was concern for a possible fluctuance after discontinuation that could be an abscess. An ultrasound was performe d that resulted in a possible hematoma versus abscess. The patient's blood pressure continued to be elevated; however, not hypertensive urgency. This was most likely due to having his aldosterone held per previous recommendations. Additionally, the patient's MELD score remains stable as did the rest of his labs, however, during ro unds, the patient began to complaining of acute onset chest pain, shortness of breath. There is conc declan of possible volume overload as the patient's Lasix has been held and he had received significant amount of volume the previous day to the blood transfusions. There is also concern for possible PE g iven the sudden nature and the possibility of a nebulizing part of the hematoma in his arm. A code georgie tolbert was called due to worsening shortness of breath without hypoxia, while nursing was trying to est ablish IV access. During this code, a right subclavian line was placed. The patient was then starte d on IV Lasix per pulmonology recommendations. Patient was not sent for CT. Over the remaining cour se of the day, the patient's shortness of breath improved as he diuresed. The patient was moved from the floor to IMCU for closer nursing ratios. The following day, the patient was doing significantly better. However, overnight, patient became delirious and pulled out his right subclavian line. Add itionally, he pulled out his subclavian line. However, his chest pain resolved and by morning, he wa s back to baseline mental status. Hemoglobin remained stable at 7.2 and as did his electrolytes and renal function. The patient did have a small drop in hemoglobin from 7.7 to 7.3, was attributed to t he fact that he was likely still bleeding into the hematoma given his INR 1.9-2.1 range over the prev ious few days. The patient was continued to diurese in the IMCU for the remainder of the day. On , as noted, the patient had continued pain. He also had fever and chills with a white count of 12.3. Additionally, his hemoglobin dropped again to 6.5. He was transfused another unit of packe d red blood cells and a UA was found to be concerning for urinary tract infection. The patient was s tarted on IV Rocephin and the urine was sent for culture as well as blood cultures. The following day 02/04/2018, the patient's symptoms began to improve. He was no longer complained o f fever, though he did have his blood pressure still remained somewhat elevated. His white count imp roved as did his hemoglobin. Hemoglobin 7.9, white count was 11.3. Again the previous day, his drop in hemoglobin was attributed to continued, leaking of blood into the hematoma. It determined that demetris reece was stable to be transferred out of IMCU and up to the medical floor. On the following day 02/05/2018, patient remained stable. He was alert and oriented. Hemoglobin imp roved to 8.1, and his chemistry and renal function appeared to be at baseline and stable. The cultur es from the prior day were found to be growing Klebsiella that was sensitive to Rocephin. The barbaraen t was tolerating p.o. well and said he began to feel generally much better. The patient's spironolact one and Lasix were restarted and adjusted in order to help produce the appropriate blood pressure and volume status. The dosing was adjusted to a 10:4 ratio Lasix to spironolactone. Additionally, the patient's lactulose was adjusted as he was not having bowel movements. He was adjusted up to 15 t.i. d. to b.i.d. to be titrated to 3-4 small bowel movements a day. Previously, the patient required maulik ma for bowel movement. By 02/05/2018, the patient stated that he had four bowel movements between ov er the course of the previous 24 hours. On 02/06/2018, the patient remained stable and was transitioned to oral antibiotics. White count was 7.8, hemoglobin stable at 7.5. Chemistries and renal function appeared to be at baseline. The barbara ent's arm while continued to have a large ecchymosis was less tender and began to improve. It was de termined at this point, the patient was stable for discharge on p.o. antibiotics with a close followu p at home with his normal medical team. It was recommended that the patient after discharge to [facility] make his way back up to [place], where he can be seen by his normal doctors. It was explained to him e that he should be managing his lactulose to have 3-4 bowel movements per day, is recommended that h e discontinue use of all illicit drugs in addition to alcohol given his cirrhosis. DISCHARGE INSTRUCTIONS: LOCATION: Home. FOLLOWUP: Follow up with his normal PCP within 1 week. ACTIVITY: Ad denny.
--- NOTE | 2018-02-12 12:40 | PQF ---
SARA GARDINERJANNET [id number] CLINICAL DOCUMENTATION CLARIFICATION FORM: POST DISCHARGE Addendum to original discharge summary date: 02/06/2018 DATE: 02/12/2018 ATTN: Dr. Arellano Please exercise your independent, professional judgment in responding to the clarification form. Clinical indicators are provided on the bottom of this form for your review Please check appropriate box(s): [ ] Left arm hematoma is a complication due to midline catheter [ ] Left arm hematoma is not a complication due to midline catheter [ ] Other diagnosis (please specify) [ ] Unable to determine In addition, please specify: Present on Admission (POA): [ ] Yes [ ] No [ ] Unable to determine CLINICAL INDICATORS - SIGNS / SYMPTOMS / LABS Pain/Swelling/Bruising at midline catheter site left arm. . MRI left upper extremity 01/31: Hematoma. RISK FACTORS Placement of left midline catheter. . TREATMENT: Removal of left midline catheter. (This form is maintained as a part of the permanent medical record) 2014 [employer], [employer]. All Rights Reserved Saumya [email or web address] [phone] MTDD
--- NOTE | 2018-02-12 16:00 | EKG ---
Test Reason : Blood Pressure : / mmHG Vent. Rate : 087 BPM Atrial Rate : 087 BPM P-R Int : 164 ms QRS Dur : 148 ms QT Int : 448 ms P-R-T Axes : 064 054 064 degrees QTc Int : 539 ms Normal sinus rhythm Right bundle branch block No strain Prolonged QTc Abnormal ECG Confirmed by MARLEEN Hdez, SUKUMAR ([id number]), online editor THOMAS RASCON ([id number] on 02/12/2018 4:00:20 PM Referred By: Confirmed By:SUKUMAR HAWLEY M.D.
--- NOTE | 2018-02-14 22:49 | EKG ---
Test Reason : Blood Pressure : / mmHG Vent. Rate : 072 BPM Atrial Rate : 072 BPM P-R Int : 174 ms QRS Dur : 120 ms QT Int : 428 ms P-R-T Axes : 051 060 068 degrees QTc Int : 468 ms Normal sinus rhythm Right bundle branch block Abnormal ECG When compared with ECG of 25-JAN-2018 06:49, Abberant conduction is no longer Present QRS duration has decreased QT has shortened Confirmed by Sindi PAREDES ([id number]) on 02/14/2018 10:48:42 PM Referred By: VEENA Confirmed By:Sindi PAREDES
== END 2018-02-06 12:47 | disposition home or self-care (01) | DRG 433 ==
LOC: ERS 08:31 → T4-B 19:21 → IMCU/EMU 02-01 13:37 → T4-B 02-03 20:50
PROVIDERS: ADMIT Family Medicine; ATTEND Family Medicine
PROC: 30233N1 Transfusion of Nonautologous Red Blood Cells into Peripheral Vein, Percutaneous Approach (ICD-10-PCS; principal; 2018-01-31)
PROC: 02H633Z Insertion of Infusion Device into Right Atrium, Percutaneous Approach (ICD-10-PCS; 2018-02-01)
DX: K70.40 Alcoholic hepatic failure without coma (principal); N17.9 Acute kidney failure, unspecified; E87.0 Hyperosmolality and hypernatremia; E87.2 Acidosis; E87.1 Hypo-osmolality and hyponatremia; N39.0 Urinary tract infection, site not specified; K70.31 Alcoholic cirrhosis of liver with ascites; D69.59 Other secondary thrombocytopenia; E87.70 Fluid overload, unspecified; E88.09 Other disorders of plasma-protein metabolism, not elsewhere classified; B96.1 Klebsiella pneumoniae [K. pneumoniae] as the cause of diseases classified elsewhere; D64.9 Anemia, unspecified; B18.2 Chronic viral hepatitis C; F10.10 Alcohol abuse, uncomplicated; I25.10 Atherosclerotic heart disease of native coronary artery without angina pectoris; E03.9 Hypothyroidism, unspecified; I16.0 Hypertensive urgency; Z66 Do not resuscitate; I10 Essential (primary) hypertension; E87.6 Hypokalemia; F15.90 Other stimulant use, unspecified, uncomplicated; F17.210 Nicotine dependence, cigarettes, uncomplicated; M79.81 Nontraumatic hematoma of soft tissue; B96.89 Other specified bacterial agents as the cause of diseases classified elsewhere; Z91.14 Patient's other noncompliance with medication regimen; Z88.0 Allergy status to penicillin; Z79.899 Other long term (current) drug therapy; Z79.02 Long term (current) use of antithrombotics/antiplatelets
CPT/HCPCS: 36415; 36416; 36430; 36556; 51702; 70450; 71045; 74018; 74250; 76882; 80048; 80053; 80306; 80307; 81003; 81015; 82140; 82274; 82553; 82570; 82805; 83605; 83690; 83735; 83880; 84145; 84300; 84443; 84484; 84540; 85025; 85610; 85730; 86850; 86900; 86901; 87040; 87077; 87086; 87186; 90471; 90682; 93005; 93010; 96361; 96374; J2270; A4216; G0008; G8978-GP-CK; G8978-GP-CM; G8979-GP-CI; G8979-GP-CK; G8987-GO-CM; G8988-GO-CK; J0360; J0696; J1940; J3010; J7050; P9016; P9047; Q2036